=== PATIENT | male | born 1945 | race Caucasian/White ===

== ENCOUNTER 2020-01-12 10:24 | Inpatient (IN) | payer BC, MEDICARE, SELFPAY ==
[2020-01-12] VITALS (24 sets, daily range): BP systolic 83–121; BP diastolic 53–89; PULSE 74–133; RESP 12–24; TEMP 36.3–37.1; O2SAT 92–99; BMI 22.2; BMI 22.1
--- NOTE | 2020-01-12 10:42 | EKG12_ITS ---
Test Reason : CP Blood Pressure : / mmHG Vent. Rate : 126 BPM Atrial Rate : 119 BPM P-R Int : 000 ms QRS Dur : 156 ms QT Int : 316 ms P-R-T Axes : 000 -52 155 degrees QTc Int : 457 ms Atrial fibrillation with rapid ventricular response Left axis deviation Non-specific intra-ventricular conduction block Abnormal ECG Confirmed by SVETLANA IRIZARRY, KENNETH ([id number]), film editor DELONTE LEON ([id number]) on 01/13/2020 1:47:51 PM Referred By: RADHIKA Confirmed By:KENNETH MOTA MD
--- NOTE | 2020-01-12 10:43 | ED.DCSUM_ITS ---
History of Present Illness Chief Complaint: Palpitations Informant: Patient Narrative: 74-year-old male presents to the emergency department with heart palpitations. He has a history of mitral and aortic valve replacement. He is maintained on Coumadin. He states that he has had this sensation in the past but it was very short-lived. This is been constant since yesterday. He feels fatigue and loss of Pap. No chest pain but states he feels his heart racing. He states he sees a icing coater in [place] but would like to switch to [facility]. He takes Coumadin. Past Medical History - Allergies and Home Meds Allergies/Adverse Reactions: Allergies No Known Allergies Allergy (Verified 01/12/20 10:41) Primary Care Physician: Nathaniel Joseph MD [NON-STAFF] - Past Medical History: - - Hypertension hypercholesterolemia Surgical History: - - Aortic and mitral valve replacements Lives: With Family Smoking Status: Never smoker Drugs: None Review of Systems General: Reports: Malaise. Denies: Chills, Fever, Sweats Eyes: Denies: Visual changes - bilaterally, Diplopia ENT: Denies: Rhinorrhea, Sore throat Cardiovascular: Reports: Palpitations, Heart racing. Denies: Chest pain Respiratory: Denies: Dyspnea, Cough, Dyspnea on exertion Gastrointestinal: Denies: Abdominal pain, Nausea, Vomiting, Diarrhea, Melena, Hematochezia Genitourinary: Denies: Dysuria, Hematuria, Frequency Musculoskeletal: Denies: Back pain, Extremity Pain Skin: Denies: Rash, Wounds Neurological: Denies: Headache, Weakness, Numbness Physical Exam Vital Signs/Narrative: Vital Signs Temp Pulse Resp BP Pulse Ox 01/12/20 10:30 129 H 01/12/20 10:25 97.3 F L 133 H 13 106/85 H 98 Inital Vital Signs reviewed: Yes General: Well nourished, Well developed, No Acute Distress Head: Normocephalic, Atraumatic Eyes: Perrl, EOMI ENT: Moist mucous membranes, No rhinorrhea Neck: Supple, Nontender Cardiovascular: No murmurs, Irregular, Tachycardia Respiratory: No distress, CTA bilaterally, Chest nontender Abdomen: Soft, Nontender, Nondistended, Normal bowel sounds Back: Nontender, Normal Inspection Extremities: Nontender, No edema Skin: Normal color, No rash Neurological: Alert, Oriented x3, Cranial nerves II-XII grossly intact, Normal Strength, Normal Sensation Psychological: Normal affect, Normal Mood Diagnostic/Tx/Re-eval Clinical Impression(s) from Imaging Studies Chest X-Ray 01/12/20 11:00 IMPRESSION: Elevation of the right hemidiaphragm with increased markings at the right lung base as well as in the right upper lobe. Follow-up is recommended. Electronically Signed: Jayesh Gross, at 11:24 EST , Service support , Laboratory Last Values WBC 8.1 K/mm3 (4.4-11.0) 01/12/20 10:40 RBC 4.06 M/mm3 (4.6-6.2) L 01/12/20 10:40 Hgb 11.8 g/dL (13.0-16.5) L 01/12/20 10:40 Hct 38.1 % (40-54) L 01/12/20 10:40 MCV 93.8 fL (80-94) 01/12/20 10:40 MCH 29.1 pg (27.0-32.0) 01/12/20 10:40 MCHC 31.0 g/dL (32-36) L 01/12/20 10:40 RDW Std Deviation 46.0 fl (35.1-43.9) H 01/12/20 10:40 RDW Coeff of Patricia 13.5 % (11.6-14.6) 01/12/20 10:40 Plt Count 247 K/mm3 (150-450) 01/12/20 10:40 MPV 10.8 fl (6.2-12.0) 01/12/20 10:40 Immature Gran % (Auto) 0.200 % (0.0-0.9) 01/12/20 10:40 Neut % (Auto) 79.9 % (47-70) H 01/12/20 10:40 Lymph % (Auto) 8.5 % (19-41) L 01/12/20 10:40 [facility] % (Auto) 9.8 % (0-10) 01/12/20 10:40 Eos % (Auto) 1.0 % (0-5) 01/12/20 10:40 Baso % (Auto) 0.6 % (0-1) 01/12/20 10:40 Absolute Neuts (auto) 6.5 X10^3/uL (2.0-7.7) 01/12/20 10:40 Absolute Lymphs (auto) 0.69 X10^3/uL (0.83-4.51) L 01/12/20 10:40 Nucleated RBC % 0 % (0-5) 01/12/20 10:40 PT 32.4 SECONDS (11.7-14.9) H 01/12/20 10:40 INR 3.2 01/12/20 10:40 APTT 34.7 Seconds (24.1-36.2) 01/12/20 10:40 Sodium 137 mmol/L (136-145) 01/12/20 10:40 Potassium 4.9 mmol/L (3.5-5.1) 01/12/20 10:40 Chloride 101 mmol/L (98-107) 01/12/20 10:40 Carbon Dioxide 30.0 mmol/L (21.0-32.0) 01/12/20 10:40 Anion Gap 6 (5-15) 01/12/20 10:40 BUN 33 mg/dL (7-18) H 01/12/20 10:40 Creatinine 1.58 mg/dL (0.70-1.30) H 01/12/20 10:40 Estim Creat Clear Calc 31.68 ml/min 01/12/20 10:40 Est GFR (MDRD) Af Amer 55 mL/min (>60) L 01/12/20 10:40 Est GFR (MDRD) Non-Af 46 mL/min (>60) L 01/12/20 10:40 BUN/Creatinine Ratio 20.9 RATIO (10-20) H 01/12/20 10:40 Glucose 140 mg/dL (74-106) H 01/12/20 10:40 Calcium 9.0 mg/dL (8.5-10.1) 01/12/20 10:40 Magnesium 2.4 mg/dL (1.6-2.6) 01/12/20 10:40 Troponin I 0.351 ng/mL (<0.045) H 01/12/20 10:40 TSH 1.10 uIU/mL (0.358-3.74) 01/12/20 10:40 - EKG Initial EKG Interpretation: Atrial Fibrillation - EKG demonstrates atrial fibrillation with RVR at a rate of 126. Nonspecific intraventricular block noted. - Medical Decision Making IV established patient received a dose of Cardizem which slowed him down to the 80s and 90s. He is therapeutic on his Coumadin. His troponin is slightly elevated in the indeterminate range. It could be type II. He has no known history of coronary artery disease per him. He slowly increased his rate again to the 120s to 140s. He was placed on a drip. We have attempted to obtain old records from his icing coater in [place] have been unsuccessful at this point. I am hesitant to offer cardioversion without documentation that he does not have coronary artery disease and that he has been therapeutic on his Coumadin. Patient is comfortable with this plan. ED Disposition - Plan for ED Patient: Disposition: Acute Care Hospital [facility] Diagnosis: Atrial fibrillation with RVR, Anticoagulated on Coumadin Referrals: Nathaniel Joseph MD [NON-STAFF] -
[2020-01-12] MEDS: dilTIAZem 25 MG/5 ML Vial 10 MG IV BOLUS ×2 (10:52→13:41)
--- NOTE | 2020-01-12 11:00 | RAD_ITS ---
STUDY: X-RAY CHEST REASON FOR EXAM: Male, 74 years old. Chest pain, A-fib TECHNIQUE: Single AP portable view of the chest. COMPARISON: Comparison is made with prior study dated 07/06/2013. FINDINGS: EKG electrodes are seen. Stable elevation of the right hemidiaphragm. Mild increased markings at the right lung base as well as in the right upper lobe. This may represent early infiltrate. Radiographic follow-up is recommended. Blunting of the right costophrenic angle. Sternal cerclage wires are present from a prior sternotomy. Prior mitral valve replacement. A left-sided ICD is seen. Normal mediastinum and parth. Normal visualized pulmonary arteries. There is atherosclerotic calcification of the aortic arch with tortuosity. There are diffuse degenerative changes of the visualized thoracic spine. Normal visualized ribs, clavicles, and shoulders. There is no demonstrated abnormality of the visualized soft tissue structures of the upper abdomen. RAD/Chest 1 View (Portable) IMPRESSION: Elevation of the right hemidiaphragm with increased markings at the right lung base as well as in the right upper lobe. Follow-up is recommended. Electronically Signed: Jayesh Gross, at 11:24 EST , Service support ,
[2020-01-12 11:06] LABS: International Normalized Ratio 3.2; Prothrombin Time (Protime)PT. 32.4 SECONDS (11.7-14.9)
[2020-01-12 11:07] LABS: Partial Thromboplast Time 34.7 Seconds (24.1-36.2)
[2020-01-12 11:22] LABS: Anion Gap 6 (5-15); BUN 33 mg/dL (7-18); BUN/Creat Ratio 20.9 RATIO (10-20); Chloride 101 mmol/L (98-107); Creatinine, Serum 1.58 mg/dL (0.70-1.30); EST Glomerular Filtration Rate 46 mL/min (>60); Est Glom Filt Rate - Afr Amer 55 mL/min (>60); Estimated Creatinine Clearance 31.68 ml/min; Glucose 140 mg/dL (74-106); Magnesium 2.4 mg/dL (1.6-2.6); Potassium 4.9 mmol/L (3.5-5.1); Sodium Level 137 mmol/L (136-145)
[2020-01-12 11:39] LABS: Absolute Lymphocyte Count 0.69 X10^3/uL (0.83-4.51); Absolute Neutrophil Count 6.5 X10^3/uL (2.0-7.7); Basophil# 0.05 X10^3/uL; Basophil% 0.6 % (0-1); Eosinophil# 0.08 X10^3/uL; Hematocrit 38.1 % (40-54); Hemoglobin 11.8 g/dL (13.0-16.5); Lymphocyte # 0.69 X10^3/ul (4.0); Lymphocyte % 8.5 % (19-41); Mean Corpuscular Hgb 29.1 pg (27.0-32.0); Mean Corpuscular Volume 93.8 fL (80-94); Mean Platelet Vol. 10.8 fl (6.2-12.0); Monocyte# 0.79 X10^3/uL; Monocyte% 9.8 % (0-10); NRBC Flagged by Analyzer 0 % (0-5); Neutrophil # 6.45 X10^3/uL (2.7-7.7); Neutrophil % 79.9 % (47-70); Platelet Count 247 K/mm3 (150-450); RBC Distribution Width CV 13.5 % (11.6-14.6); Red Blood Count 4.06 M/mm3 (4.6-6.2); White Blood Count 8.1 K/mm3 (4.4-11.0)
--- NOTE | 2020-01-12 12:15 | NURSING ---
DR CARUSO PAGED
--- NOTE | 2020-01-12 13:21 | HP.PCM_ITS ---
History of Present Illness Date of Admission: 01/12/20 Chief Complaint: palpitations The patient is a 74 year old M with a PMH of mitral and aortic valve replacement. He was admitted via the ED on 01/12/2020 with a complaint of heart palpitations. He does admit to having a remote history of Afib, and says he t sarbjitnks he was told circa 2003 that he had afib, but it is episodic, and he hasnt had any problems with it. he does follow up with a security software engineer in [place] o/a of valvular replacement. He has been having these palpitations since 1 day prior to admission with associated fatigue. He denied any chest pain, dizziness or lightheadedness. Review of systems otherwise negative. ED, vitals showed temperature of 91.3 with blood pressure of 109/74, pulse rate of 94 and respiratory rate of 20. He was saturating at 96% on room air. Chemistry showed creatinine of 1.58 with potassium of 4.9 and initial troponin of 0.351. TSH was 1.1. CBC showed hemoglobin of 11.8 and WBC of 8.1 with platelets of 47. Initial troponin was 0.351. Chest x-ray showed no acute cardiopulmonary process. EKG showed A. fib with RVR. He has been admitted to manage for new onset A. fib with RVR. Patient also wants to switch care to a security software engineer in [place]. [] Past Medical History Allergies No Known Allergies Allergy (Verified 01/12/20 10:41) Home Medications: Ambulatory Orders Medication Instructions Recorded Aspirin [Aspirin, Baby] 81 mg PO DAILY@0800 01/12/20 Carvedilol 25 mg PO BID 01/12/20 Lisinopril 5 mg PO BID 01/12/20 Pravastatin [Pravachol] 40 mg PO DAILY 01/12/20 Warfarin [Coumadin ([facility])] 2 mg PO DAILY 01/12/20 Warfarin [Coumadin ([facility])] 4 mg PO DAILY 01/12/20 Surgical History: - - Aortic and mitral valve replacements, pacemaker insertion Psychiatric History: No pertinent psych hx Lives: With Family Smoking Status: Never smoker Alcohol: None Drugs: None - *Family History Maternal History Items: No pertinent history Paternal History Items: No pertinent history Sibling History Items: Heart Disease Review of Systems Constitutional: Denies: Chills, Fever, Malaise, Weakness, Weight Change Eyes: Denies: Blurred vision HEENT: Denies: Head Aches, Sinus Congestion, Sinus Drainage Cardiovascular: Reports: Palpitations. Denies: Chest Pain, Chest Pressure, Chest Tightness, Edema, Heaviness, Light Headedness, Orthopnea Respiratory: Denies: Cough, Shortness of Breath, Shortness of breath at rest, Shortness of breath upon exertion, Sputum production Gastrointestinal: Denies: Abdominal Pain, Nausea, Vomiting Genitourinary: Denies: Dysuria Musculoskeletal: Denies: Joint Pain, Joint Tenderness Skin: Denies: Rash, Wounds Neurological: Denies: Numbness, Tingling, Focal weakness Psychiatric: Denies: Anxiety, Depression, Homicidal Ideations, Suicidal Ideations Hematologic/ Lymphatic: Denies: Easy Bruising, Easy Bleeding VTE Information - Inpt Only VTE Present on Admission: No VTE Pharm Prophylaxis ordered?: Yes - Physical Exam Vitals/I&O's: Vital Signs Temp Pulse Resp BP Pulse Ox 97.3 F L 94 20 H 109/74 96 01/12/20 10:25 01/12/20 12:06 01/12/20 12:06 01/12/20 12:06 01/12/20 12:06 Oxygen Delivery Method Room Air Weight: 121 lb 11.123 oz Body Mass Index (BMI) 22.2 General: Alert, Oriented x3, Cooperative, No apparent distress HEENT: Atraumatic, PERRLA, EOMI, Normocephalic Oral: Dry Mucosa Neck: Supple, No JVD, Negative Carotid Bruits Lungs: Clear to auscultation, Normal air movement, No rhonchi, No wheeze, No rales Cardiovascular: Irregular Rate, Tachycardic, - - afib Abdomen: Bowel Sounds Present, Soft, Non Tender Extremities: No clubbing, No cyanosis, No edema, Capillary Refill Less than 3 Seconds Skin: No rashes, No breakdown Musculoskeletal: No Tenderness to Palpation of Joints or Extremities Lymphatic: No Cervical, Supraclavicular, or Inguinal Adenopathy Neurological: Cranial nerves II-XII grossly intact, Neuro grossly intact, Motor Exam 5/5 strength throughout Psych/Mental Status: Normal Affect, Appropriate, Alert and oriented to time, place, person, mood and affect Laboratory Results 01/12/20 10:40: WBC 8.1, RBC 4.06 L, Hgb 11.8 L, Hct 38.1 L, MCV 93.8, MCH 29.1, MCHC 31.0 L, RDW Std Deviation 46.0 H, RDW Coeff of Patricia 13.5, Plt Count 247, MPV 10.8, Immature Gran % (Auto) 0.200, Neut % (Auto) 79.9 H, Lymph % (Auto) 8.5 L, [place] % (Auto) 9.8, Eos % (Auto) 1.0, Baso % (Auto) 0.6, Absolute Neuts (auto) 6.5, Absolute Lymphs (auto) 0.69 L, Nucleated RBC % 0 01/12/20 10:40: PT 32.4 H, INR 3.2, APTT 34.7 01/12/20 10:40: Sodium 137, Potassium 4.9, Chloride 101, Carbon Dioxide 30.0, Anion Gap 6, BUN 33 H, Creatinine 1.58 H, Estim Creat Clear Calc 31.68, Est GFR (MDRD) Af Amer 55 L, Est GFR (MDRD) Non-Af 46 L, BUN/Creatinine Ratio 20.9 H, Glucose 140 H, Calcium 9.0, Magnesium 2.4, Troponin I 0.351 H, TSH 1.10 Diagnostic Data Chest X-Ray 01/12/20 11:00 IMPRESSION: Elevation of the right hemidiaphragm with increased markings at the right lung base as well as in the right upper lobe. Follow-up is recommended. Electronically Signed: Jayesh Renato, at 11:24 EST , Service support , Current Medications Diltiazem HCl 125 mg/ Dextrose 125 mls @ 5 mls/hr IV .Q25H [facility]; Protocol Assessment/Plan All Active Problems Atrial fibrillation with RVR (Acute) Anticoagulated on Coumadin (Acute) 74-year-old male admitted with a complaint of palpitations and found to have A. fib with RVR. #Afib with RVR * Admit to PCU with telemetry * Heart rate had come down to the 100 at time of review. * On aspirin and carvedilol. Also on Coumadin. INR today is 3.2. * started on cardizem drip in ED: will continue * TSH WNL * Consult cardiology. * 2D echo. * #Non-STEMI * Initial troponin 0 0.351. He has no chest pain and EKG showed no acute ST changes. This may be due to demand ischemia from A. fib with RVR. * Will cycle troponins. Cardiology consulted. Await recs. Continue aspirin and carvedilol. * Check lipid panel. Continue pravastatin. * #History of mitral and aortic valve replacement: Stable. INR is 2.2. #CKD stage III: Creatinine is 1.58 with EGFR 46. Baseline creatinine is unknown. Will monitor. Prophylaxis: Already on Coumadin. CODE STATUS: Full code * Patient counseled extensively about different types of CODE STATUS including full code, DNR CCA and DNR CCA. Patient elects to be full code. * Total [id number] time 16 minutes. Inpatient E&M: 18627 Init Hosp L3 Procedures: 43741 Advncd Care Plan 30 Min
--- NOTE | 2020-01-12 13:50 | ED.RN ---
called Maribel to inform of pt's admission, who will update pt's . business instructor Brent also talked to son.
--- NOTE | 2020-01-12 14:20 | NURSING ---
127 kor new onset afib rvr, indeterminate trop
--- NOTE | 2020-01-12 14:33 | ECHOD_ITS ---
Reason For Study: Afib/Flutter Procedure This was a 2D Doppler, Color Flow transthoracic echocardiogram. The exam was of adequate technical quality. Exam performed portable in patient room. Left Ventricle Normal LV size. Moderate concentric left ventricular hypertrophy. Severe global left ventricular systolic dysfunction. The estimated ejection fraction is 20 %. Post operative septal motion. Unable to assess diastolic dysfunction. Right Ventricle Normal RV size. ICD or pacer leads identified within the right ventricle. Normal systolic function. Atria The left atrium is moderately enlarged. Normal right atrium. ICD or pacer leads identified within the right atrium. No doppler evidence for ASD. Mitral Valve Small mobile echodensity in the submitral valvular apparatus compatible with redundant / flail chordae tendonae. Stable appearing mechanical mitral valve apparatus. Tricuspid Valve Normal tricuspid valve. Moderate (2+) tricuspid valve insufficiency. Right ventricular systolic pressure estimated to be 50 mmHg. Aortic Valve Stable appearing mechanical aortic valve apparatus. Pulmonic Valve The pulmonic valve is not well visualized. Great Vessels Normal sized aortic root. Pericardium/Pleural Trivial pericardial effusion. There are no echocardiographic indications of cardiac tamponade. MMode/2D Measurements & Calculations LVIDd: 4.4 cm IVSd: 1.3 cm LVOT diam: 2.0 cm LVIDs: 3.8 cm LVPWd: 1.7 cm LVOT area: 3.0 cm2 FS: 13.5 % Ao root diam: 3.0 cm LAV(MOD-sp2): 91.1 ml RA A4 area: 17.2 cm2 Time Measurements MV dec time: 0.13 sec Doppler Measurements & Calculations MV E max peña: 175.2 cm/sec Ao V2 max: 136.3 cm/sec LV V1 max: 129.3 cm/sec MV A max peña: 31.0 cm/sec Ao max P.5 mmHg LV V1 max P.7 mmHg MV E/A: 5.6 Ao V2 mean: 87.2 cm/sec LV V1 mean P.0 mmHg Ao mean P.5 mmHg LV V1 mean: 78.9 cm/sec Ao V2 VTI: 16.2 cm LV V1 VTI: 18.6 cm GRAYSON(I,D): 3.5 cm2 GRAYSON(V,D): 2.9 cm2 SV(LVOT): 56.4 ml PA V2 max: 82.3 cm/sec TR max peña: 325.4 cm/sec TR max P.4 mmHg Interpretation Summary Severe global left ventricular systolic dysfunction. The estimated ejection fraction is 20 %. Post operative septal motion. Moderate concentric left ventricular hypertrophy. The left atrium is moderately enlarged. Stable appearing mechanical mitral valve apparatus. Small mobile echodensity in the submitral valvular apparatus compatible with redundant / flail chordae tendonae. Moderate (2+) tricuspid valve insufficiency. Stable appearing mechanical aortic valve apparatus. Trivial pericardial effusion. There are no echocardiographic indications of cardiac tamponade. Right ventricular systolic pressure estimated to be 50 mmHg c/w pulmonary hypertension. Unable to assess diastolic dysfunction. Ordering Physician: Jessica Jean Referring Physician: MD Tay Lawrence Performed By: Troy Sams RCS
[2020-01-12] MEDS: 0.9% Saline Lock 10 ML Syringe IV ×2 (15:09→18:24)
[2020-01-12 15:31] LABS: BNP,B-Type NATRIURETIC PEPTIDE 1305.1 pg/mL (0-100)
[2020-01-12] MEDS: Jantoven 2 MG Tablet PO (17:52)
--- NOTE | 2020-01-12 18:03 | CON.PCM_ITS ---
Problem List (1) Atrial fibrillation with RVR Status: Acute (2) S/P MVR (mitral valve replacement) Status: Chronic (3) S/P AVR (aortic valve replacement) Status: Chronic (4) Cardiomyopathy Status: Chronic Qualifiers: Cardiomyopathy type: unspecified Qualified Code(s): I42.9 - Cardiomyopathy, unspecified (5) ICD (implantable cardioverter-defibrillator) in place Status: Chronic (6) Abnormal cardiac enzyme level Status: Acute (7) Renal insufficiency Status: Chronic Reason for Consult Date of Consultation: 01/12/20 History of Present Illness: The patient is a 74 year [id number] white male who is referred for evaluation of atrial fibrillation superimposed upon a history of mechanical mitral valve replacement, mechanical aortic valve replacement, cardiomyopathy, ICD, and chronic renal insufficiency. He has been following with [facility] cardiovascular services. He states his surgical procedures were performed at the end of 2003/beginning at 2005 to the best of his recollection. At that time he does not recall requiring coronary revascularization therapy. He states his last outpatient cardiovascular visit may have been in the fall 2018. Since that time he has been followed remotely. He is unsure whether his INR levels are maintained by his corrections officer or his primary care physician at the local [facility] office. He states he does have a history of paroxysmal atrial fibrillation. He had a recurrent event. He felt his heart going faster. He states it appeared to last longer than usual. Thus he presented to [facility] [place] for further evaluation and care. He did not complain of separate chest discomfort or acute respiratory related issues. There was no issues with near syncope or syncope. He has denied ongoing orthopnea or PND or peripheral pitting edema. At same time he has denied any fever, chills, or night sweats. He states his INR level is checked at home with results called to his physician's office and then results from his physician's office called back to him regarding medication adjustment. Today he was found to have indeterminate troponin I levels. His rhythm was atrial fibrillation. His ECG demonstrated atrial fibrillation with a left axis deviation and a left bundle branch block pattern. His chest x-ray suggested post open heart surgery changes, a dual-chamber ICD, the appearance of a mechanical prosthetic valve, and per the radiologist a early right-sided infiltrate cannot be excluded. The patient also underwent further evaluation with a transthoracic echocardio gram. The results are as noted below. [] Past Medical History Allergies/Adverse Reactions: Allergies No Known Allergies Allergy (Verified 01/12/20 10:41) Home Medications: Ambulatory Orders Medication Instructions Recorded Aspirin [Aspirin, Baby] 81 mg PO DAILY@0800 01/12/20 Carvedilol 25 mg PO BID 01/12/20 Lisinopril 5 mg PO BID 01/12/20 Pravastatin [Pravachol] 40 mg PO DAILY 01/12/20 Warfarin [Coumadin (PBKC)] 2 mg PO SUTUWETHSA 01/12/20 Warfarin [Coumadin ([facility]KC)] 4 mg PO MOFR 01/12/20 Past Medical History (Chronic Problems): Chronic Problems S/P MVR (mitral valve replacement) (Chronic) S/P AVR (aortic valve replacement) (Chronic) Cardiomyopathy (Chronic) ICD (implantable cardioverter-defibrillator) in place (Chronic) Renal insufficiency (Chronic) Surgical History: - - Aortic and mitral valve replacements, pacemaker insertion Psychiatric History: No pertinent psych hx - *Family History Maternal History Items: No pertinent history Paternal History Items: No pertinent history Sibling History Items: Heart Disease Lives: With Family Smoking Status: Never smoker Tobacco Use: Chew Alcohol: None Drugs: None Review of Systems - Review of Systems General: Denies: Fever, Night Sweats, Fatigue Cardiovascular: Reports: Palpitations. Denies: Chest Discomfort, Shortness of Breath, Orthopnea, PND, Peripheral Edema, Lightheadedness, Dizziness, Near Syncope, Syncope Respiratory: Denies: Cough, Sputum Production, Hemoptysis Gastrointestinal: Denies: Hematemesis, Hematochezia, Melena Genitourinary: Denies: Dysuria, Hematuria Skin: Denies: Rash Subjectve: This is a 74-year-old white male who appears to be resting comfortably at the moment in no acute distress. Objective: Vital Signs Temp Pulse Resp BP Pulse Ox 97.8 F 89 18 121/87 H 97 01/12/20 14:30 01/12/20 17:00 01/12/20 17:00 01/12/20 17:00 01/12/20 17:00 Oxygen Delivery Method Room Air Weight: 121 lb 3.2 oz Body Mass Index (BMI) 22.1 Intake and Output for Last 24 Hours 01/10/20 01/11/20 01/12/20 23:59 23:59 23:59 Intake Total 256.58 / 256.58 Balance 256.58 / 256.58 General: Awake, Alert, Oriented x 3, Cooperative, No Acute Distress HEENT: Atraumatic, Normocephalic, PERRL, EOMI, Sclera Non Icteric Neck: Supple, Good ROM, No JVD Lungs: Clear to auscultation Cardiovascular: Irregular Rhythm, [place] Prosthetic S1, [place] Prosthetic S2 Vascular: No Carotid Bruits Abdomen: Bowel Sounds Present, Soft Extremities: No edema Neurological: No Focal Motor or Sensory Deficit Psych/Mental Status: Appropriate 01/12/20 10:40: WBC 8.1, RBC 4.06 L, Hgb 11.8 L, Hct 38.1 L, MCV 93.8, MCH 29.1, MCHC 31.0 L, Plt Count 247, MPV 10.8, Immature Gran % (Auto) 0.200, Neut % (Auto) 79.9 H, Lymph % (Auto) 8.5 L, [place] % (Auto) 9.8, Eos % (Auto) 1.0, Baso % (Auto) 0.6, Absolute Neuts (auto) 6.5, Nucleated RBC % 0 01/12/20 10:40: PT 32.4 H, INR 3.2, APTT 34.7 01/12/20 10:40: Sodium 137, Potassium 4.9, Chloride 101, Carbon Dioxide 30.0, Anion Gap 6, BUN 33 H, Creatinine 1.58 H, Est GFR (MDRD) Af Amer 55 L, Est GFR (MDRD) Non-Af 46 L, BUN/Creatinine Ratio 20.9 H, Glucose 140 H, Calcium 9.0, Magnesium 2.4, Troponin I 0.351 H 01/12/20 10:40: B-Natriuretic Peptide 1305.1 H 01/12/20 13:40: Troponin I 0.229 H 01/12/20 16:47: Troponin I 0.322 H Rhythm: Atrial fibrillation EKG: As noted above ECHO: 07-06-2013 Moderately severe global left ventricular systolic dysfunction with a reported LVEF of 30% with a normal prosthetic mitral valve and a report of a bioprosthetic aortic valve with a comment of moderate pulmonary hypertension with an estimated PA systolic pressure of 54 mmHg 01-12-2020 Interpretation Summary Severe global left ventricular systolic dysfunction. The estimated ejection fraction is 20 %. Post operative septal motion. Moderate concentric left ventricular hypertrophy. The left atrium is moderately enlarged. Stable appearing mechanical mitral valve apparatus. Small mobile echodensity in the submitral valvular apparatus compatible with redundant / flail chordae tendonae. Moderate (2+) tricuspid valve insufficiency. Stable appearing mechanical aortic valve apparatus. Trivial pericardial effusion. There are no echocardiographic indications of cardiac tamponade. Right ventricular systolic pressure estimated to be 50 mmHg c/w pulmonary hyp ertension. Unable to assess diastolic dysfunction. Assessment/Plan 1. Atrial fibrillation-paroxysmal The patient apparently has a history of paroxysmal atrial fibrillation. He has been on rate limiting therapy with his beta-feroz secondary to his other cardiovascular condition. He has been on anticoagulant therapy secondary to his mechanical mitral valve/aortic valve condition. At the present time he will continue to be monitored. He will continue rate limiting therapy. He will have an attempt at antiarrhythmic therapy with IV amiodarone. He will continue anticoagulant therapy. Depending upon his clinical course he may need continued medical therapy with future attempts at synchronized biphasic DC cardioversion to regain sinus rhythm. However, this may be somewhat challenging in this patient if his atrial dysrhythmia history is chronic and noting his underlying cardiovascular conditions and his left atrial enlargement. 2. Valvular heart disease: Status post MVR-mechanical and status post AVR- mechanical The patient reports that he has both mechanical mitral and aortic valve prosthesis. At the present time he has been evaluated noninvasively as noted. His prosthetic mitral and aortic valves appear to be stable. He will need to continue AHA antibiotic prophylaxis as deemed appropriate as well as anticoagulant therapy as deemed appropriate. 3. Cardiomyopathy It appears the patient has a history of an underlying cardiomyopathy. Based upon today's echocardiogram his overall LV systolic function appears to have decreased compared to 2014. This history may be part of the etiology for the patient's ICD. At the moment the patient does not appear to have evidence of acute systolic mediated CHF based upon his history or examination. However he needs to be monitored for such. He will need to be treated as deemed appropriate. 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 4. Abnormal cardiac enzymes He does have abnormal cardiac enzymes. They have remained indeterminate without significant fluctuation. This may be secondary to his atrial dysrhythmia superimposed upon his cardiomyopathy as a type II event versus a primary type I event. He will continue his ongoing evaluation and care. It may not be unreasonable to screen him for any development of CAD/significant myocardial ischemia warranting interruption of his anticoagulant therapy to proceed with reevaluation such as cardiac catheterization, etc., with a pharmacologic stress nuclear imaging study. 5. Chronic renal sufficiency The patient appears to have an element of chronic renal insufficiency. This will have to be taken into consideration if he were to proceed with any studies involving IV contrast agents, etc. Comment: The patient's case has been discussed with the patient and previously with the [facility] [place] ED staff and the [facility] [place] hospital staff. This note was generated using a voice recognition system and there may be incorrect words, spelling or punctuation that were not noted when reviewing the office note prior to saving.
[2020-01-12 18:51] LABS: AST(SGOT) 13 U/L (15-37); Alanine Aminotransfer ALT/SGPT 26 U/L (16-61); Albumin, Serum 3.6 g/dL (3.2-5.0); Alkaline Phosphatase 111 U/L (45-117); Globulin 2.7 g/dL (2.2-4.2); Protein, Total 6.3 g/dL (6.4-8.2)
[2020-01-12] MEDS: Amiodarone 360 MG in Dextrose 5% Viaflo Bag 192.8 ML 33.3 MG CONT INF (19:00)
[2020-01-12] MEDS: Pravastatin 40 MG Tablet PO (21:40)
[2020-01-13] VITALS (30 sets, daily range): BP systolic 90–133; BP diastolic 66–89; PULSE 115–124; RESP 8–30; TEMP 36.6–36.8; O2SAT 90–100; BMI 22.1
[2020-01-13] MEDS: Amiodarone 360 MG in Dextrose 5% Viaflo Bag 192.8 ML 16.7 MG CONT INF ×2 (01:02→15:28)
[2020-01-13] MEDS: Aspirin 81 MG TAB.CHEW PO (05:50)
--- NOTE | 2020-01-13 05:55 | EKG12_ITS ---
Test Reason : A-FLUTTER Blood Pressure : / mmHG Vent. Rate : 121 BPM Atrial Rate : 242 BPM P-R Int : 000 ms QRS Dur : 176 ms QT Int : 332 ms P-R-T Axes : -67 -59 156 degrees QTc Int : 471 ms Atrial flutter Left axis deviation Left bundle branch block Abnormal ECG When compared with ECG of 13-JAN-2020 05:08, MANUAL COMPARISON REQUIRED, DATA IS UNCONFIRMED Confirmed by SVETLANA IRIZARRY, KENNETH ([id number]), film editor supervisor ARY COLE ([id number]) on 01/15/2020 10:58:41 AM Referred By: DR PHILLIPS Confirmed By:KENNETH MOTA MD
[2020-01-13 07:20] LABS: Absolute Lymphocyte Count 0.53 X10^3/uL (0.83-4.51); Absolute Neutrophil Count 7.7 X10^3/uL (2.0-7.7); Basophil# 0.04 X10^3/uL; Basophil% 0.4 % (0-1); Eosinophil# 0.19 X10^3/uL; Hematocrit 35.6 % (40-54); Hemoglobin 11.5 g/dL (13.0-16.5); Lymphocyte # 0.53 X10^3/ul (4.0); Lymphocyte % 5.6 % (19-41); Mean Corp Hgb Conc 32.3 g/dL (32-36); Mean Platelet Vol. 10.4 fl (6.2-12.0); Monocyte# 0.92 X10^3/uL; Monocyte% 9.8 % (0-10); NRBC Flagged by Analyzer 0 % (0-5); Neutrophil # 7.68 X10^3/uL (2.7-7.7); Neutrophil % 81.6 % (47-70); POSITIVE DIFFERENTIAL YES; Platelet Count 228 K/mm3 (150-450); RBC Distribution Width CV 13.7 % (11.6-14.6); RBC Distribution Width SD 46.1 fl (35.1-43.9); Red Blood Count 3.83 M/mm3 (4.6-6.2); White Blood Count 9.4 K/mm3 (4.4-11.0)
--- NOTE | 2020-01-13 07:23 | EKG12_ITS ---
Test Reason : Blood Pressure : / mmHG Vent. Rate : 118 BPM Atrial Rate : 118 BPM P-R Int : 120 ms QRS Dur : 154 ms QT Int : 368 ms P-R-T Axes : 000 -68 167 degrees QTc Int : 515 ms Aflutter with 2:1 block Left axis deviation Left ventricular hypertrophy with QRS widening and repolarization abnormality Abnormal ECG When compared with ECG of 13-JAN-2020 07:35, MANUAL COMPARISON REQUIRED, DATA IS UNCONFIRMED Confirmed by SVETLANA IRIZARRY, KENNETH ([id number]), editor sound ARY COLE ([id number]) on 01/15/2020 10:59:08 AM Referred By: Confirmed By:KENNETH MOTA MD
[2020-01-13 07:31] LABS: Differential Indicated SCAN CRITERIA MET
[2020-01-13 07:48] LABS: Anion Gap 5 (5-15); BUN 32 mg/dL (7-18); BUN/Creat Ratio 24.1 RATIO (10-20); Calcium,Total 8.5 mg/dL (8.5-10.1); Chloride 104 mmol/L (98-107); Cholesterol 122 mg/dL (200); Creatinine, Serum 1.33 mg/dL (0.70-1.30); EST Glomerular Filtration Rate 56 mL/min (>60); Est Glom Filt Rate - Afr Amer 68 mL/min (>60); Estimated Creatinine Clearance 37.63 ml/min; Glucose 96 mg/dL (74-106); High Density Lipoprotein 44 mg/dL; Potassium 4.4 mmol/L (3.5-5.1); Sodium Level 138 mmol/L (136-145); Triglycerides 94 mg/dL; Very Low Density Lipoprotein 19 mg/dL (5-40)
[2020-01-13 08:00] LABS: Differential Comment SCANNED
--- NOTE | 2020-01-13 09:23 | PCM.PN.CARD ---
Subjectve: The patient states he feels somewhat better compared to admission with respect to his heart rate. He has had no ongoing chest discomfort or difficulty breathing. Objective: Vital Signs Temp Pulse Resp BP Pulse Ox 98.0 F 117 H 20 H 114/84 H 97 01/13/20 04:00 01/13/20 07:19 01/13/20 07:00 01/13/20 07:00 01/13/20 07:54 Oxygen Flow Rate (L/min) 2 Oxygen Delivery Method Nasal Cannula Weight: 121 lb 3.2 oz Body Mass Index (BMI) 22.1 Intake and Output for Last 24 Hours 01/11/20 01/12/20 01/13/20 23:59 23:59 23:59 Intake Total 1097.80 / 1131.10 166.24 / 166.24 Balance 1097.80 / 1131.10 166.24 / 166.24 General: Awake, Alert, Oriented x 3, Cooperative, No Acute Distress HEENT: Atraumatic, Normocephalic, PERRL, EOMI, Sclera Non Icteric Neck: Supple, Good ROM, No JVD Lungs: Clear to auscultation Cardiovascular: Irregular Rhythm, Normal S1, Normal S2 Abdomen: Bowel Sounds Present, Soft Extremities: No edema Neurological: No Focal Motor or Sensory Deficit Psych/Mental Status: Appropriate 01/12/20 10:40: WBC 8.1, RBC 4.06 L, Hgb 11.8 L, Hct 38.1 L, MCV 93.8, MCH 29.1, MCHC 31.0 L, Plt Count 247, MPV 10.8, Immature Gran % (Auto) 0.200, Neut % (Auto) 79.9 H, Lymph % (Auto) 8.5 L, [place] % (Auto) 9.8, Eos % (Auto) 1.0, Baso % (Auto) 0.6, Absolute Neuts (auto) 6.5, Nucleated RBC % 0 01/12/20 10:40: PT 32.4 H, INR 3.2, APTT 34.7 01/12/20 10:40: Sodium 137, Potassium 4.9, Chloride 101, Carbon Dioxide 30.0, Anion Gap 6, BUN 33 H, Creatinine 1.58 H, Est GFR (MDRD) Af Amer 55 L, Est GFR (MDRD) Non-Af 46 L, BUN/Creatinine Ratio 20.9 H, Glucose 140 H, Calcium 9.0, Magnesium 2.4, Troponin I 0.351 H 01/12/20 10:40: B-Natriuretic Peptide 1305.1 H 01/12/20 13:40: Troponin I 0.229 H 01/12/20 16:47: Troponin I 0.322 H 01/12/20 16:47: Total Bilirubin 1.80 H, Direct Bilirubin 0.40 H 01/13/20 07:00: WBC 9.4, RBC 3.83 L, Hgb 11.5 L, Hct 35.6 L, MCV 93.0, MCH 30.0, MCHC 32.3, Plt Count 228, MPV 10.4, Immature Gran % (Auto) 0.600, Neut % (Auto) 81.6 H, Lymph % (Auto) 5.6 L, [place] % (Auto) 9.8, Eos % (Auto) 2.0, Baso % (Auto) 0.4, Absolute Neuts (auto) 7.7, Nucleated RBC % 0 01/13/20 07:00: Sodium 138, Potassium 4.4, Chloride 104, Carbon Dioxide 29.0, Anion Gap 5, BUN 32 H, Creatinine 1.33 H, Est GFR (MDRD) Af Amer 68, Est GFR (MDRD) Non-Af 56 L, BUN/Creatinine Ratio 24.1 H, Glucose 96, Calcium 8.5, Triglycerides 94, Cholesterol 122, LDL Cholesterol 59, VLDL Cholesterol 19, HDL Cholesterol 44 Rhythm: Atrial fibrillation/flutter EKG: Atrial fibrillation/flutter; left axis deviation; left bundle branch block pattern Stress Test: Pending Medical Necessity - Tobacco Use Smoking Status: Never smoker Tobacco Use: Chew Assessment/Plan 1. Atrial fibrillation-paroxysmal The patient apparently has a history of paroxysmal atrial fibrillation/flutter. He has been on rate limiting therapy with his beta-feroz secondary to his other cardiovascular condition. He has been on anticoagulant therapy secondary to his mechanical mitral valve/aortic valve condition. At the present time he will continue to be monitored. He will continue rate limiting therapy. He was placed on IV amiodarone with an attempt at regaining sinus rhythm with his history of paroxysmal atrial fibrillation/flutter. Thus far he is remaining in atrial fibrillation/flutter. He has remained on anticoagulant therapy. Depending upon his clinical course he may need continued medical therapy with future attempts at synchronized biphasic DC cardioversion to regain sinus rhythm. However, this may be somewhat challenging in this patient if his atrial dysrhythmia history is chronic and noting his underlying cardiovascular conditions and his left atrial enlargement. 2. Valvular heart disease: Status post MVR-mechanical and status post AVR-mechanical The patient reports that he has both mechanical mitral and aortic valve prosthesis. At the present time he has been evaluated noninvasively as noted. His prosthetic mitral and aortic valves appear to be stable. He will need to continue AHA antibiotic prophylaxis as deemed appropriate as well as anticoagulant therapy as deemed appropriate. 3. Cardiomyopathy It appears the patient has a history of an underlying cardiomyopathy. Based upon today's echocardiogram his overall LV systolic function appears to have decreased compared to 2014. This history may be part of the etiology for the patient's ICD. At the moment the patient does not appear to have evidence of acute systolic mediated CHF based upon his history or examination. However he needs to be monitored for such. He will need to be treated as deemed appropriate. 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 4. Abnormal cardiac enzymes He does have abnormal cardiac enzymes. They have remained indeterminate without significant fluctuation. This may be secondary to his atrial dysrhythmia superimposed upon his cardiomyopathy as a type II event versus a primary type I event. He will continue his ongoing evaluation and care. He is proceeding with a pharmacologic stress nuclear imaging study to screen for any obvious evidence of coronary/myocardial ischemia that would require further evaluation and care. 5. Chronic renal sufficiency The patient appears to have an element of chronic renal insufficiency. His creatinine level is somewhat improved. This will need to be followed and taken into consideration with respect to his ongoing evaluation and care. This note was generated using a voice recognition system and there may be incorrect words, spelling or punctuation that were not noted when reviewing the office note prior to saving.
[2020-01-13] MEDS: Digoxin 250 MCG/ML Ampul 500 MCG IV ×2 (11:48→23:17)
[2020-01-13] MEDS: Carvedilol 25 MG Tablet PO ×2 (12:06→21:16)
[2020-01-13] MEDS: 0.9% Saline Lock 10 ML Syringe IV ×2 (12:13→23:17)
--- NOTE | 2020-01-13 12:20 | STRESSREP_ITS ---
Stress Test Report Date: 01-13-2020 Procedure: Pharmacologic stress nuclear imaging study Indications: Atrial fibrillation/flutter; status post MVR; status post AVR; cardiomyopathy; ICD Consent: Per the patient Procedure: The patient underwent pharmacologic (Regadenoson) evaluation with a peak heart rate of 120 beats per minute (82%predicted maximal heart rate) and a peak blood pressure of 134/91 mmHg. The baseline ECG demonstrated atrial flutter with left axis deviation with left bundle branch block pattern. The peak pharmacologic ECG demonstrated no obvious ECG changes. There was an occasional PVC during infusion and recovery. There was no complaint of chest discomfort during pharmacologic infusion or recovery. The examination was discontinued secondary to completion of protocol. Impression: 1. Pharmacologic (Regadenoson) evaluation 2. Peak pharmacologic ECG with no obvious ECG changes. 3. There was an occasional PVC during infusion and recovery. 4. Nuclear images pending Myocardial perfusion imaging study: Technique: The patient was injected with 11.8 millicuries of technetium 99m Cardiolite and subsequently rest SPECT Cardiolite nuclear imaging was obtained in the horizontal long, vertical long, and short axis views. The patient underwent pharmacologic (Regadenoson) evaluation with a peak heart rate of 120 beats per minute (82% percent predicted maximal heart rate) and a peak blood pressure of 134/91 mmHg. The patient was injected with 32.7 millicuries of technetium 99m Cardiolite and subsequently stress SPECT Cardiolite nuclear imaging was obtained in the horizontal long, vertical long, and short axis views. A gated Cardiolite study at peak stress was obtained. Interpretation: Rest and stress SPECT Cardiolite nuclear imaging status post realignment, normalization, and attenuation correction demonstrate the appearance of diminished absence of myocardial perfusion/tracer uptake in portions of the bas al to mid anteroseptal segments without significant change between rest and stress. There is diminished end systolic thickening and brightening. The gated Cardiolite study demonstrates diminished myocardial thickening and inward wall motion. The reported LVEF is 20%. Impression: 1. Rest and stress SPECT current nuclear imaging demonstrate myocardial perfusion changes potentially compatible with the patient's underlying left bundle branch block phenomena, however, an area of previous myocardial injury/infarction cannot necessarily be excluded, with no myocardial perfusion changes considered diagnostic for associated stress-induced myocardial ischemia. 2. The gated Cardiolite study reports an LVEF of 20%. This note was generated with Dragon dictation software. It may contain incorrect words, spelling, and punctuation that were not noted in checking the note before signing.
--- NOTE | 2020-01-13 12:52 | EKG12_ITS ---
Test Reason : CONVERSION Blood Pressure : / mmHG Vent. Rate : 116 BPM Atrial Rate : 232 BPM P-R Int : 000 ms QRS Dur : 166 ms QT Int : 398 ms P-R-T Axes : -68 -62 132 degrees QTc Int : 553 ms Atrial flutter Left axis deviation Non-specific intra-ventricular conduction block Abnormal ECG When compared with ECG of 13-JAN-2020 05:08, MANUAL COMPARISON REQUIRED, DATA IS UNCONFIRMED Confirmed by SVETLANA IRIZARRY, KENNETH ([id number]), city editor ARY COLE ([id number]) on 01/15/2020 11:00:29 AM Referred By: MOOD Confirmed By:KENNETH MOTA MD
[2020-01-13 13:20] LABS: Prothrombin Time (Protime)PT. 36.6 SECONDS (11.7-14.9)
[2020-01-13 13:24] LABS: International Normalized Ratio 3.7
--- NOTE | 2020-01-13 14:12 | CASEMGMT ---
Assessment- SW completed assessment with patient at bedside. SW also confirmed address and phone number Living situation- Patient lives with his and youngest daughter in a 2 story home. He is set up on the first floor. There are about 2-3 entry steps PCP: Dr Cross Specialists: None Pharmacy: [place]. Script coverage is through [facility] DME: None ADL's/IADL's: Independent in everything. 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 Past SNF/rehab: None Past HH: None LW: None POA: None Plan: Patient plans on returning home at d/c. He is currently on O2. He has no preference for O2 company should he need O2 at d/c. He does not have electric, but they do have a generator. He said he would have one of his drivers transport him home. Alexandria PUGH MSW
--- NOTE | 2020-01-13 14:14 | PN_ITS ---
<Vinny Paul - Last Filed: 01/13/20 14:14> Patient Problems: Active and Suspected Problems Atrial fibrillation with RVR (Acute) Abnormal cardiac enzyme level (Acute) Reason for Visit: afib rvr Subjective: Today no palpitations, chest pain, pressure, tightness, heaviness. No LH/dizziness. No SOB. No LE edema. Remains on amio drip with some tachycardia. Vitals/I&O's: Vital Signs Temp Pulse Resp BP Pulse Ox 98.3 F 117 H 28 H 127/89 H 90 01/13/20 10:00 01/13/20 12:00 01/13/20 12:00 01/13/20 12:00 01/13/20 12:00 Oxygen Flow Rate (L/min) 2 Oxygen Delivery Method Room Air Weight: 121 lb 3.2 oz Body Mass Index (BMI) 22.1 Intake and Output for Last 24 Hours 01/11/20 01/12/20 01/13/20 23:59 23:59 23:59 Intake Total 1097.80 / 1131.10 489.74 / 489.74 Output Total 250 / 250 Balance 1097.80 / 1131.10 239.74 / 239.74 General: Alert, Oriented x3, Cooperative HEENT: Atraumatic, PERRLA, EOMI, Normocephalic Neck: Supple, No JVD, Negative Carotid Bruits Lungs: Clear to auscultation, Normal air movement Cardiovascular: No murmurs, Irregular Rate, Tachycardic Abdomen: Bowel Sounds Present, Soft, Non Tender Extremities: No edema, Capillary Refill Less than 3 Seconds Skin: No rashes, No breakdown Musculoskeletal: No Tenderness to Palpation of Joints or Extremities Neurological: Cranial nerves II-XII grossly intact Psych/Mental Status: Normal Affect, Appropriate, Alert and oriented to time, place, person, mood and affect Laboratory Results 01/12/20 10:40: B-Natriuretic Peptide 1305.1 H 01/12/20 16:47: Troponin I 0.322 H 01/12/20 16:47: Total Bilirubin 1.80 H, Direct Bilirubin 0.40 H, AST 13 L, ALT 26, Alkaline Phosphatase 111, Total Protein 6.3 L, Albumin 3.6, Globulin 2.7 01/13/20 07:00: WBC 9.4, RBC 3.83 L, Hgb 11.5 L, Hct 35.6 L, MCV 93.0, MCH 30.0, MCHC 32.3, RDW Std Deviation 46.1 H, RDW Coeff of Patricia 13.7, Plt Count 228, MPV 10.4, Immature Gran % (Auto) 0.600, Neut % (Auto) 81.6 H, Lymph % (Auto) 5.6 L, Harney % (Auto) 9.8, Eos % (Auto) 2.0, Baso % (Auto) 0.4, Absolute Neuts (auto) 7.7, Absolute Lymphs (auto) 0.53 L, Nucleated RBC % 0, Differential Comment SCANNED 01/13/20 07:00: Sodium 138, Potassium 4.4, Chloride 104, Carbon Dioxide 29.0, Anion Gap 5, BUN 32 H, Creatinine 1.33 H, Estim Creat Clear Calc 37.63, Est GFR (MDRD) Af Amer 68, Est GFR (MDRD) Non-Af 56 L, BUN/Creatinine Ratio 24.1 H, Glucose 96, Calcium 8.5, Triglycerides 94, Cholesterol 122, LDL Cholesterol 59, VLDL Cholesterol 19, HDL Cholesterol 44 01/13/20 12:45: PT 36.6 H, INR 3.7 H* Current Medications Aspirin (Aspirin 81 Mg Tab.Chew) 81 mg PO DAILY@0800 [facility] Last Admin: 01/13/20 05:50 Dose: 81 mg Documented by: Carvedilol (Carvedilol 25 Mg Tablet) 25 mg PO BID [facility] Last Admin: 01/13/20 12:06 Dose: 25 mg Documented by: Amiodarone HCl 360 mg/ (Dextrose) 200 mls @ 16.667 mls/hr CONT INF .Q12H [facility] Stop: 01/13/20 18:59 Last Infusion: 01/13/20 12:00 Dose: 0.5 mg/min, 16.7 mls/hr Documented by: Sodium Chloride () 1,000 mls @ 0 mls/hr IV .Q0M [facility] Sodium Chloride () 500 mls @ 0 mls/hr IV .Q0M [facility] Nitroglycerin (Nitroglycerin (Inpatient Use) 0.4 Mg Tab.Subl) 0.4 mg SUBLINGUAL Q5M PRN PRN Reason: CARDIAC/CHEST PAIN Ondansetron HCl (Ondansetron 4 Mg/2 Ml Vial) 4 mg IV Q8H PRN PRN PRN Reason: NAUSEA/VOMITING Pravastatin Sodium (Pravastatin 40 Mg Tablet) 40 mg PO QHS [facility] Last Admin: 01/12/20 21:40 Dose: 40 mg Documented by: Sodium Chloride (0.9% Saline Lock 10 Ml Syringe) 10 - 40 ml IV UD PRN PRN Reason: SALINE FLUSH Last Admin: 01/13/20 12:13 Dose: 20 ml Documented by: Warfarin Sodium (Jantoven 2 Mg Tablet) 2 mg PO SuTuWeThSa@1700 [facility] Last Admin: 01/12/20 17:52 Dose: 2 mg Documented by: Warfarin Sodium (Warfarin 4 Mg Tablet) 4 mg PO MoFr@1700 [facility] STROKE Vital Signs/Narrative: Vital Signs Pulse Resp BP Pulse Ox 01/13/20 12:00 117 H 28 H 127/89 H 90 01/13/20 11:48 119 H 122/87 H 01/13/20 11:00 121 H 26 H 100/67 91 Medical Necessity - Tobacco Use Smoking Status: Never smoker Tobacco Use: Chew Assessment/Plan All Active Problems Atrial fibrillation with RVR (Acute) Anticoagulated on Coumadin (Acute) Abnormal cardiac enzyme level (Acute) 1. Afib RVR - cardiology following, amiodarone drip. warfarin - INR 3.7 - hold tonight. Continue coreg. Echo with EF 20%, 2+ TVI, stable mechanical valves, abnormal chordae tendonae, RVSP 50 mmHg. TSH normal. BNP markedly elevated however no acute CHF exacerbation at this time. 2. NSTEMI - stress without inducible myocardial ischemia, EF 20%. Trop max 0.351. 3. Hx mechanical mitral and aortic valve repair - continue warfarin. 4. CKDIII - improved. 5. HLD - continue statin DVT ppx: coumadin This patient was seen by Vinny Paul PA-C under the supervision of Dr. Fernandes. <Yemi Fernandes - Last Filed: 01/13/20 15:35> Vitals/I&O's: Vital Signs Temp Pulse Resp BP Pulse Ox 98.3 F 118 H 24 H 104/66 97 01/13/20 10:00 01/13/20 14:00 01/13/20 14:00 01/13/20 14:00 01/13/20 14:00 Oxygen Flow Rate (L/min) 2 Oxygen Delivery Method Nasal Cannula Weight: 54.975 kg Body Mass Index (BMI) 22.1 Intake and Output for Last 24 Hours 01/11/20 01/12/20 01/13/20 23:59 23:59 23:59 Intake Total 1097.80 / 1131.10 506.60 / 506.60 Output Total 250 / 250 Balance 1097.80 / 1131.10 256.60 / 256.60 Laboratory Results 01/12/20 10:40: B-Natriuretic Peptide 1305.1 H 01/12/20 16:47: Troponin I 0.322 H 01/12/20 16:47: Total Bilirubin 1.80 H, Direct Bilirubin 0.40 H, AST 13 L, ALT 26, Alkaline Phosphatase 111, Total Protein 6.3 L, Albumin 3.6, Globulin 2.7 01/13/20 07:00: WBC 9.4, RBC 3.83 L, Hgb 11.5 L, Hct 35.6 L, MCV 93.0, MCH 30.0, MCHC 32.3, RDW Std Deviation 46.1 H, RDW Coeff of Patricia 13.7, Plt Count 228, MPV 10.4, Immature Gran % (Auto) 0.600, Neut % (Auto) 81.6 H, Lymph % (Auto) 5.6 L, Harney % (Auto) 9.8, Eos % (Auto) 2.0, Baso % (Auto) 0.4, Absolute Neuts (auto) 7.7, Absolute Lymphs (auto) 0.53 L, Nucleated RBC % 0, Differential Comment SCANNED 01/13/20 07:00: Sodium 138, Potassium 4.4, Chloride 104, Carbon Dioxide 29.0, Anion Gap 5, BUN 32 H, Creatinine 1.33 H, Estim Creat Clear Calc 37.63, Est GFR (MDRD) Af Amer 68, Est GFR (MDRD) Non-Af 56 L, BUN/Creatinine Ratio 24.1 H, Glucose 96, Calcium 8.5, Triglycerides 94, Cholesterol 122, LDL Cholesterol 59, VLDL Cholesterol 19, HDL Cholesterol 44 01/13/20 12:45: PT 36.6 H, INR 3.7 H* Current Medications Aspirin (Aspirin 81 Mg Tab.Chew) 81 mg PO DAILY@0800 [facility] Last Admin: 01/13/20 05:50 Dose: 81 mg Documented by: Carvedilol (Carvedilol 25 Mg Tablet) 25 mg PO BID [facility] Last Admin: 01/13/20 12:06 Dose: 25 mg Documented by: Amiodarone HCl 360 mg/ (Dextrose) 200 mls @ 16.667 mls/hr CONT INF .Q12H [facility] Stop: 01/13/20 18:59 Last Infusion: 01/13/20 14:00 Dose: Infused Documented by: Sodium Chloride () 1,000 mls @ 0 mls/hr IV .Q0M [facility] Sodium Chloride () 500 mls @ 0 mls/hr IV .Q0M [facility] Nitroglycerin (Nitroglycerin (Inpatient Use) 0.4 Mg Tab.Subl) 0.4 mg SUBLINGUAL Q5M PRN PRN Reason: CARDIAC/CHEST PAIN Ondansetron HCl (Ondansetron 4 Mg/2 Ml Vial) 4 mg IV Q8H PRN PRN PRN Reason: NAUSEA/VOMITING Pravastatin Sodium (Pravastatin 40 Mg Tablet) 40 mg PO QHS [facility] Last Admin: 01/12/20 21:40 Dose: 40 mg Documented by: Sodium Chloride (0.9% Saline Lock 10 Ml Syringe) 10 - 40 ml IV UD PRN PRN Reason: SALINE FLUSH Last Admin: 01/13/20 12:13 Dose: 20 ml Documented by: STROKE Vital Signs/Narrative: Vital Signs Pulse Resp BP Pulse Ox 01/13/20 14:00 118 H 24 H 104/66 97 01/13/20 13:00 116 H 24 H 111/85 H 92 01/13/20 12:00 117 H 28 H 127/89 H 90 01/13/20 11:48 119 H 122/87 H Assessment/Plan This patient was seen in conjunction with Vinny Paul PA-C . I have independently interviewed and examined the patient and reviewed pertinent historical, laboratory, and other data. Please refer to Vinny Paul PA-C note for details of this patient's presentation, findings, and recommendations. I have reviewed Vinny Paul PA-C note and concur with documented findings. In brief, patient is a 74-year-old gentleman with history of paroxysmal A. fib who presented with palpitations and chest pain with elevated troponin. Started on amiodarone drip admitted to monitored bed with consultation placed to cardiology. Patient underwent a nuclear stress test which was negative for stress-induced ischemia Physical Examination: GENERAL: cooperative HEENT: Atraumatic; EYES; Anicteric, Normal Conjunctiva NECK; supple, normal thyroid, RESPIRATORY: Diminished to auscultation CARDIOVASCULAR: Slightly irregular tachycardic GI: soft, normoactive bowel sounds, : No Renal angle tenderness; EXTREMITIES: No edema, no clubbing, MUSCULOSKELETAL: no muscle waisting NEURO: Awake; no lateralizing signs. SKIN: No Rash PSYCH; Flat affect Assessment: 1. Paroxysmal A. fib with RVR 2. Elevated troponin secondary to demand ischemia/non-STEMI type II from tachycardia 3. Cardiomyopathy with an ejection fraction of 20% 4. History of mechanical mitral valve on systemic anticoagulation 5. History of aortic valve repair 6. Chronic kidney disease stage III 7. Dyslipidemia 8. DVT prophylaxis on Coumadin Recommendations: 1. I have discussed the results of my overview and impressions with the patient 2. Options for management were reviewed Inpatient E&M: [address] [facility] H[facility] L3
--- NOTE | 2020-01-13 16:12 | CASEMGMT ---
Pt does not have card on file so unable to determine what plan pt has at this time. According to the [place] website, the following are in-network tertiary facilities: [facility], [facility], [facility], [facility], [facility], [facility], [facility], and . John SOOD CM
--- NOTE | 2020-01-13 18:17 | EKG12_ITS ---
Test Reason : AM EKG Blood Pressure : / mmHG Vent. Rate : 116 BPM Atrial Rate : 116 BPM P-R Int : 146 ms QRS Dur : 168 ms QT Int : 414 ms P-R-T Axes : 000 -59 184 degrees QTc Int : 575 ms Sinus tachycardia Left axis deviation Left bundle branch block Abnormal ECG When compared with ECG of 12-JAN-2020 10:29, MANUAL COMPARISON REQUIRED, DATA IS UNCONFIRMED Confirmed by SVETLANA IRIZARRY, KENNETH ([id number]), newspaper managing editor ARY COLE ([id number]) on 01/18/2020 10:41:10 AM Referred By: VIDAL Confirmed By:KENNETH MOTA MD
[2020-01-13] MEDS: Pravastatin 40 MG Tablet PO (21:16)
[2020-01-13] MEDS: MELATONIN 3 MG TABLET PO (23:17)
[2020-01-14] VITALS (22 sets, daily range): BP systolic 77–115; BP diastolic 49–84; PULSE 80–121; RESP 12–32; TEMP 36.3–36.8; O2SAT 87–100
[2020-01-14] MEDS: Amiodarone 360 MG in Dextrose 5% Viaflo Bag 192.8 ML 16.7 MG CONT INF (03:25)
[2020-01-14 06:30] LABS: Absolute Lymphocyte Count 0.55 X10^3/uL (0.83-4.51); Absolute Neutrophil Count 7.3 X10^3/uL (2.0-7.7); Basophil# 0.04 X10^3/uL; Basophil% 0.4 % (0-1); Eosinophil# 0.21 X10^3/uL; Eosinophils% 2.3 % (0-5); Lymphocyte # 0.55 X10^3/ul (4.0); Mean Corp Hgb Conc 31.6 g/dL (32-36); Mean Corpuscular Hgb 29.6 pg (27.0-32.0); Mean Corpuscular Volume 93.8 fL (80-94); Mean Platelet Vol. 10.6 fl (6.2-12.0); Monocyte# 1.06 X10^3/uL; Monocyte% 11.6 % (0-10); NRBC Flagged by Analyzer 0 % (0-5); Neutrophil # 7.25 X10^3/uL (2.7-7.7); Neutrophil % 79.4 % (47-70); POSITIVE DIFFERENTIAL YES; Platelet Count 249 K/mm3 (150-450); RBC Distribution Width CV 13.7 % (11.6-14.6); RBC Distribution Width SD 46.2 fl (35.1-43.9); Red Blood Count 4.05 M/mm3 (4.6-6.2); White Blood Count 9.1 K/mm3 (4.4-11.0)
[2020-01-14 06:38] LABS: International Normalized Ratio 3.4; Prothrombin Time (Protime)PT. 34.2 SECONDS (11.7-14.9)
[2020-01-14 06:54] LABS: Differential Indicated SCAN CRITERIA MET
[2020-01-14 06:55] LABS: Acanthocytes RARE; Differential Comment SCANNED; Ovalocyte RARE; Platelet Estimate ADEQUATE (ADEQ)
[2020-01-14 07:07] LABS: ALB/GLOB Ratio 1.1 RATIO (0.9-2.4); AST(SGOT) 20 U/L (15-37); Alanine Aminotransfer ALT/SGPT 21 U/L (16-61); Albumin, Serum 3.3 g/dL (3.2-5.0); Alkaline Phosphatase 105 U/L (45-117); Anion Gap 3 (5-15); BUN 24 mg/dL (7-18); BUN/Creat Ratio 18.6 RATIO (10-20); Calcium,Total 8.7 mg/dL (8.5-10.1); Chloride 105 mmol/L (98-107); Creatinine, Serum 1.29 mg/dL (0.70-1.30); EST Glomerular Filtration Rate 58 mL/min (>60); Est Glom Filt Rate - Afr Amer 70 mL/min (>60); Globulin 2.9 g/dL (2.2-4.2); Glucose 108 mg/dL (74-106); Potassium 4.8 mmol/L (3.5-5.1); Protein, Total 6.2 g/dL (6.4-8.2); Sodium Level 136 mmol/L (136-145)
--- NOTE | 2020-01-14 08:45 | ECHOTEE_ITS ---
Reason For Study: ATRIAL FIB-FLUTTER Medication MYRTLE probe 6VT-D (SN [id number]) passed with minimal difficulty. No complications were noted. Cetacaine Topical [place] given X3 orally. Versed 2 mg given slow IVP. Fentanyl 100 mcg given slow IVP. Performed a rapid injection of agitated mix of 9 cc saline and 1cc air to assess for atrial septal defect. Left Ventricle The entirety of the left ventricle is not well visualized and thus comments regarding the entirety of the left ventricular wall motion cannot be made at this time, however, based upon the images obtained, especially in the transgastric view, there does appear to be evidence of left ventricular regional wall motion abnormalities and paradoxical septal wall motion potentially compatible with an underlying IVCD and/or a post open heart surgery state and overall diminished LV systolic function. Right Ventricle Normal RV size. ICD or pacer leads identified within the right ventricle. The right ventricular wall motion is normal. Atria Abnormal color flow Doppler compatible with a small PFO with left to right interatrial shunt. Abnormal agitated saline contrast study compatible with a small PFO with a right to left interatrial shunt. The left atrium is moderately enlarged. There is mild sponatenous contrast in the left atrium. No thrombus is detected in the left atrial appendage. The right atrium is mildly enlarged. There is no sponatenous contrast in the right atrium. No obvious right atrial/appendage thrombus identified. ICD or pacer leads identified within the right atrium. Mitral Valve Stable appearing mechanical mitral valve apparatus. MIld (1+) transvalvular insufficiency of the mitral valve. Tricuspid Valve Normal tricuspid valve. Moderate (2+) tricuspid valve insufficiency. Right ventricular systolic pressure estimated to be 48 mmHg. Aortic Valve Stable appearing mechanical aortic valve apparatus. Pulmonic Valve The pulmonic valve is not well visualized. Vessels Normal-appearing thoracic aorta. Pericardium No pericardial effusion. Interpretation Summary The entirety of the left ventricle is not well visualized and thus comments regarding the entirety of the left ventricular wall motion cannot be made at this time, however, based upon the images obtained, especially in the transgastric view, there does appear to be evidence of left ventricular regional wall motion abnormalities and paradoxical septal wall motion potentially compatible with an underlying IVCD and/or a post open heart surgery state and overall diminished LV systolic function. The left atrium is moderately enlarged. There is mild sponatenous contrast in the left atrium. No thrombus is detected in the left atrial appendage. The right atrium is mildly enlarged. Stable appearing mechanical mitral valve apparatus. MIld (1+) transvalvular insufficiency of the mitral valve. Moderate (2+) tricuspid valve insufficiency. Stable appearing mechanical aortic valve apparatus. Abnormal color flow Doppler compatible with a small PFO with left to right interatrial shunt. Abnormal agitated saline contrast study compatible with a small PFO with a right to left interatrial shunt. ICD or pacer leads identified within the right atrium ICD or pacer leads identified within the right ventricle. Comment: Small mobile echodensity noted on the ICD lead in the right atrium compatible with a differential diagnosis of fibrinous strands/material, thrombus, or vegetation. Clinical correlation recommended. Ordering Physician: Adelfo Catherine Referring Physician: LEATHA MCGARRY Performed By: Padma Art RDCS
[2020-01-14] MEDS: Aspirin 81 MG TAB.CHEW PO (12:11)
[2020-01-14] MEDS: Amiodarone 200 MG Tablet PO (12:12)
--- NOTE | 2020-01-14 12:26 | PN_ITS ---
Patient Problems: Active and Suspected Problems Atrial fibrillation with RVR (Acute) Abnormal cardiac enzyme level (Acute) Subjective: Patient seen and examined. Denies chest pain, shortness of breath. Underwent MYRTLE this morning which showed fibrinous strands on ICD lead. Cardioversion canceled. Patient asking when he can return home. - Physical Exam Vitals/I&O's: Vital Signs Temp Pulse Resp BP Pulse Ox 97.4 F L 100 15 98/61 93 01/14/20 08:17 01/14/20 12:00 01/14/20 12:00 01/14/20 12:00 01/14/20 12:00 Oxygen Flow Rate (L/min) 2 Oxygen Delivery Method Room Air Weight: 121 lb 3.2 oz Body Mass Index (BMI) 22.1 Intake and Output for Last 24 Hours 01/12/20 01/13/20 01/14/20 23:59 23:59 23:59 Intake Total 1097.80 / 1131.10 1112.41 / 1112.41 697.53 / 697.53 Output Total 650 / 1050 725 / 725 Balance 1097.80 / 1131.10 462.41 / 62.41 -27.47 / -27.47 General: Alert, Oriented x3, Cooperative HEENT: Atraumatic, PERRLA, EOMI, Normocephalic Neck: Supple, No JVD, Negative Carotid Bruits Lungs: Clear to auscultation, Normal air movement Cardiovascular: - - Atrial fibrillation, rate controlled Abdomen: Bowel Sounds Present, Soft, Non Tender, Non-Distended Extremities: No clubbing, No cyanosis, No edema, Capillary Refill Less than 3 Seconds Skin: No rashes, No breakdown Musculoskeletal: No Tenderness to Palpation of Joints or Extremities Neurological: Cranial nerves II-XII grossly intact, Neuro grossly intact Psych/Mental Status: Normal Affect, Appropriate Microbiology Past 72 Hours 01/13/20 18:55 Mucosa - Nose SARS-CoV-2 Antigen (Rapid) - Final Laboratory Results 01/13/20 12:45: PT 36.6 H, INR 3.7 H* 01/14/20 06:10: PT 34.2 H, INR 3.4 01/14/20 06:10: WBC 9.1, RBC 4.05 L, Hgb 12.0 L, Hct 38.0 L, MCV 93.8, MCH 29.6, MCHC 31.6 L, RDW Std Deviation 46.2 H, RDW Coeff of Patricia 13.7, Plt Count 249, MPV 10.6, Immature Gran % (Auto) 0.300, Neut % (Auto) 79.4 H, Lymph % (Auto) 6.0 L, Saunders % (Auto) 11.6 H, Eos % (Auto) 2.3, Baso % (Auto) 0.4, Absolute Neuts (auto) 7.3, Absolute Lymphs (auto) 0.55 L, Nucleated RBC % 0, Differential Comment SCANNED, Platelet Estimate ADEQUATE, Ovalocytes RARE, Acanthocytes (Spur) RARE 01/14/20 06:10: Sodium 136, Potassium 4.8, Chloride 105, Carbon Dioxide 28.0, Anion Gap 3 L, BUN 24 H, Creatinine 1.29, Estim Creat Clear Calc 38.80, Est GFR (MDRD) Af Amer 70, Est GFR (MDRD) Non-Af 58 L, BUN/Creatinine Ratio 18.6, Glucose 108 H, Calcium 8.7, Total Bilirubin 3.00 H, AST 20, ALT 21, Alkaline Phosphatase 105, Total Protein 6.2 L, Albumin 3.3, Globulin 2.9, Albumin/Globulin Ratio 1.1 Current Medications Acetaminophen (Acetaminophen 325 Mg Tablet) 650 mg PO Q6H PRN PRN PRN Reason: Pain Score 1-3 /Temp>100.7 Al Hydroxide/Mg Hydroxide (Mag Hydrox/Al Hydrox/Simeth 30 Ml Udc) 30 ml PO Q6H PRN PRN PRN Reason: Gastric Burning Amiodarone HCl (Amiodarone 200 Mg Tablet) 200 mg PO TID [facility] Stop: 01/21/20 06:01 Last Admin: 01/14/20 12:12 Dose: 200 mg Documented by: [facility]iodarone [facility] ([facility] 200 [facility]: 01/28/20 08:01 Amiodarone HCl ([facility]iodarone 200 Mg Tablet) [facility]: 10/23/22 08:01 Aspirin (Aspirin 81 Mg Tab.Chew) 81 mg PO DAILY@0800 [facility] Last Admin: 01/14/20 12:11 Dose: 81 mg Documented by: Bisacodyl (Bisacodyl 5 Mg Tablet) 10 mg PO DAILY PRN PRN PRN Reason: Constipation Carvedilol (Carvedilol 12.5 Mg Tablet) [facility] Last Admin: 01/14/20 12:09 Dose: Not Given Documented by: Docusate Sodium (Docusate Sodium 100 Mg Capsule) 200 mg PO BID PRN PRN PRN Reason: Constipation Sodium Chloride () 1,000 mls @ 0 mls/hr IV .Q0M [facility] Sodium Chloride () 500 mls @ 0 mls/hr IV .Q0M [facility] Melatonin (Mel[facility] 3 Mg Tablet) [facility] Last Admin: 01/13/20 23:17 Dose: 3 mg Documented by: Morphine Sulfate (Morphine 2 Mg/Ml Syringe) 1 - 2 mg IV Q4H PRN PRN PRN Reason: Pain Score 4-5 Morphine Sulfate (Morphine 2 Mg/Ml Syringe) 2 - 4 mg IV Q3H PRN PRN PRN Reason: Pain Score 6-10 Nitroglycerin (Nitroglycerin (Inpatient Use) 0.4 Mg Tab.Subl) 0.4 mg SUBLINGUAL Q5M PRN PRN Reason: CARDIAC/CHEST PAIN Ondansetron HCl (Ondansetron 4 Mg/2 Ml Vial) 4 mg IV Q8H PRN PRN PRN Reason: NAUSEA/VOMITING Oxycodone HCl (Oxycodone 5 Mg Tablet) 5 mg PO Q4H PRN PRN PRN Reason: Pain Score 4-5 Polyethylene Glycol (Polyethylene Glycol 3350 17 Gm Packet) 17 gm PO DAILY [facility] Last Admin: 01/14/20 11:08 Dose: Not Given Documented by: Pravastatin Sodium (Pravastatin 40 Mg Tablet) [facility] Last Admin: 01/13/20 21:16 Dose: 40 mg Documented by: Prochlorperazine Edisylate (Prochlorperazine 10 Mg/2 Ml Vial) 10 mg IV Q6H PRN PRN PRN Reason: Nausea/Vomiting Sodium Chloride (0.9% Saline Lock 10 Ml Syringe) 10 - 40 ml IV UD PRN PRN Reason: SALINE FLUSH Last Admin: 01/13/20 23:17 Dose: 10 ml Documented by: Medical Necessity - Tobacco Use Smoking Status: Never smoker Tobacco Use: Chew Assessment/Plan All Active Problems Atrial fibrillation with RVR (Acute) Anticoagulated on Coumadin (Acute) Abnormal cardiac enzyme level (Acute) 1. Atrial fibrillation with RVR-patient has history of paroxysmal atrial fibrillation. IV amiodarone with transition to oral amiodarone at discharge. Rate currently controlled. Continue Coumadin with weekly INR. Patient underwent MYRTLE which showed questionable fibrinous strands on ICD lead. Cardioversion on hold at this time. Possible outpatient MYRTLE/cardioversion at a later time. Continue amiodarone, carvedilol, Coumadin. 2. NSTEMI-stress test without ischemia. EF 20%. Continue medical management including aspirin, carvedilol, statin. 3. Cardiomyopathy with reduced EF-echocardiogram demonstrates an EF of 20%. ICD in place. Per [facility] records, prior EF on echo 06/23/2019 30 to 35%. No evidence of acute CHF. Outpatient follow-up with cardiology. 4. Valvular heart disease with history of mitral valve replacement with mechanical valve and aortic valve replacement with mechanical valve 5. Chronic kidney disease stage III-stable. 6. Hyperlipidemia-continue statin. DVT prophylaxis-continue Coumadin. This patient was seen by VINI Meza under the supervision of Dr. Fernandes.
--- NOTE | 2020-01-14 12:42 | DCINST_ITS ---
- Discharge Diagnoses Current Active Problems: Current Active and Chronic Problems Atrial fibrillation with RVR (Acute) S/P MVR (mitral valve replacement) (Chronic) S/P AVR (aortic valve replacement) (Chronic) Cardiomyopathy (Chronic) ICD (implantable cardioverter-defibrillator) in place (Chronic) Abnormal cardiac enzyme level (Acute) Renal insufficiency (Chronic) You will use the following diet at home:: Cardiac Discharge Activity: Return to Normal Activity Call your doctor if you observe: Shortness of breath, Dizziness, Fainting spells, Chest pain Additional Instructions: You will need weekly INR checked which will be followed by cardiology. Allergies/Adverse Reactions: Allergies No Known Allergies Allergy (Verified 01/12/20 10:41) Medications to take at Discharge Aspirin [Aspirin, Baby] 81 mg PO DAILY@0800 01/12/20 Pravastatin [Pravachol] 40 mg PO DAILY 01/12/20 Warfarin [Coumadin] 2 mg PO SUTUWETHSA 01/12/20 Warfarin [Coumadin] 4 mg PO MOFR 01/12/20 Amiodarone HCl [Cordarone] 200 mg PO TID #120 tab 01/14/20 Carvedilol [Coreg (Beta Baylee)] 12.5 mg PO BIDCM #120 tab 01/14/20 The following prescriptions were given: Amiodarone HCl [Cordarone] 200 mg PO TID #120 tab Transmission Status: Pending to [id number] Carvedilol [Coreg (Beta Baylee)] 12.5 mg PO BIDCM #120 tab Transmission Status: Pending to [id number] Orders to be completed after discharge: Prothrombin Time w/INR Time Frame: 1 Week, Facility: [facility], Location: Laboratory Primary Care Physician: Nathaniel Joseph MD [NON-STAFF] - Please follow up with your Primary Care Physician in: 1 Week Test Results: Test results from this visit will be discussed in further detail at your follow- up appointment, if applicable. Please Follow Up With: Adelfo Catherine MD When: 2 Weeks Proposed Discharge Date: 01/14/20
--- NOTE | 2020-01-14 12:50 | DS.PCM_ITS ---
<Desirae Spencer SCRUM PROJECT MANAGER - Last Filed: 01/14/20 12:59> Discharge Date and Diagnosis - Problem List Patient Problems: Active and Suspected Problems Atrial fibrillation with RVR (Acute) Abnormal cardiac enzyme level (Acute) Date of Admission: 01/12/20 Date of Discharge: 01/14/20 - Primary Discharge Diagnosis Acute Problems: Active Problems 1. Atrial fibrillation with RVR 2. NSTEMI 3. Cardiomyopathy with reduced EF 4. Valvular heart disease with history of mitral valve replacement with mechanical valve and aortic valve replacement with mechanical valve 5. Chronic kidney disease stage III 6. Hyperlipidemia - Secondary Discharge Diagnosis Chronic Problems: Chronic Problems S/P MVR (mitral valve replacement) (Chronic) S/P AVR (aortic valve replacement) (Chronic) Cardiomyopathy (Chronic) ICD (implantable cardioverter-defibrillator) in place (Chronic) Renal insufficiency (Chronic) Hospital Course and Treatment Imaging Results: Diagnostic Data Chest X-Ray 01/12/20 11:00 IMPRESSION: Elevation of the right hemidiaphragm with increased markings at the right lung base as well as in the right upper lobe. Follow-up is recommended. Electronically Signed: Jayesh Renato, at 11:24 EST , Service support , Consultations 01/13/20 12:49 MD to MD Notification of Procedure Routine MD Notified:: Adelfo Catherine Dr.- Cardiology Operations: None Procedures: Stress test, Transesophageal Echo Summary of Care Provided: The patient is a 74 year old M admitted 01/12/2020 due to palpitations. 1. Atrial fibrillation with RVR-patient has history of paroxysmal atrial fibrillation. IV amiodarone with transition to oral amiodarone at discharge. Rate currently controlled. Continue Coumadin with weekly INR. Patient underwent MYRTLE which showed questionable fibrinous strands on ICD lead. Cardioversion on hold at this time. Possible outpatient MYRTLE/cardioversion at a later time. Continue amiodarone, carvedilol, Coumadin. Follow-up with cardiology in 2 weeks. Initial INR ordered for 1 week which will be followed by cardiology. 2. NSTEMI-stress test without ischemia. EF 20%. Continue medical management including aspirin, carvedilol, statin. 3. Cardiomyopathy with reduced EF-echocardiogram demonstrates an EF of 20%. ICD in place. Per [facility] records, prior EF on echo 06/23/2019 30 to 35%. No evidence of acute CHF. Outpatient follow-up with cardiology. 4. Valvular heart disease with history of mitral valve replacement with mechanical valve and aortic valve replacement with mechanical valve-on Coumadin as noted above. 5. Chronic kidney disease stage III-stable. 6. Hyperlipidemia-continue statin. General: Alert, Oriented x3, Cooperative HEENT: Atraumatic, PERRLA, EOMI, Normocephalic Neck: Supple, No JVD, Negative Carotid Bruits Lungs: Clear to auscultation, Normal air movement Cardiovascular: - - Atrial fibrillation, rate controlled Abdomen: Bowel Sounds Present, Soft, Non Tender, Non-Distended Extremities: No clubbing, No cyanosis, No edema, Capillary Refill Less than 3 Seconds Skin: No rashes, No breakdown Musculoskeletal: No Tenderness to Palpation of Joints or Extremities Neurological: Cranial nerves II-XII grossly intact, Neuro grossly intact Psych/Mental Status: Normal Affect, Appropriate Patient seen and examined prior to discharge. Physical assessment as noted above. Patient is stable for discharge with follow up recommendations as noted above. This patient was seen by VINI Meza under the supervision of Dr. Fernandes. Patient Problems: Active and Suspected Problems Atrial fibrillation with RVR (Acute) Abnormal cardiac enzyme level (Acute) - Physical Exam Vitals/I&O's: Vital Signs Temp Pulse Resp BP Pulse Ox 97.4 F L 100 15 98/61 93 01/14/20 08:17 01/14/20 12:00 01/14/20 12:00 01/14/20 12:00 01/14/20 12:00 Oxygen Flow Rate (L/min) 2 Oxygen Delivery Method Room Air Weight: 121 lb 3.2 oz Body Mass Index (BMI) 22.1 Intake and Output for Last 24 Hours 01/12/20 01/13/20 01/14/20 23:59 23:59 23:59 Intake Total 1097.80 / 1131.10 1112.41 / 1112.41 697.53 / 697.53 Output Total 650 / 1050 725 / 725 Balance 1097.80 / 1131.10 462.41 / 62.41 -27.47 / -27.47 Microbiology Past 72 Hours 01/13/20 18:55 Mucosa - Nose SARS-CoV-2 Antigen (Rapid) - Final Laboratory Results 01/13/20 12:45: PT 36.6 H, INR 3.7 H* 01/14/20 06:10: PT 34.2 H, INR 3.4 01/14/20 06:10: WBC 9.1, RBC 4.05 L, Hgb 12.0 L, Hct 38.0 L, MCV 93.8, MCH 29.6, MCHC 31.6 L, RDW Std Deviation 46.2 H, RDW Coeff of Patricia 13.7, Plt Count 249, MPV 10.6, Immature Gran % (Auto) 0.300, Neut % (Auto) 79.4 H, Lymph % (Auto) 6.0 L, Wilson % (Auto) 11.6 H, Eos % (Auto) 2.3, Baso % (Auto) 0.4, Absolute Neuts (auto) 7.3, Absolute Lymphs (auto) 0.55 L, Nucleated RBC % 0, Differential Comment SCANNED, Platelet Estimate ADEQUATE, Ovalocytes RARE, Acanthocytes (Spur) RARE 01/14/20 06:10: Sodium 136, Potassium 4.8, Chloride 105, Carbon Dioxide 28.0, Anion Gap 3 L, BUN 24 H, Creatinine 1.29, Estim Creat Clear Calc 38.80, Est GFR (MDRD) Af Amer 70, Est GFR (MDRD) Non-Af 58 L, BUN/Creatinine Ratio 18.6, Glucose 108 H, Calcium 8.7, Total Bilirubin 3.00 H, AST 20, ALT 21, Alkaline Phosphatase 105, Total Protein 6.2 L, Albumin 3.3, Globulin 2.9, Albumin/Globulin Ratio 1.1 Current Medications Acetaminophen (Acetaminophen 325 Mg Tablet) 650 mg PO Q6H PRN PRN PRN Reason: Pain Score 1-3 /Temp>100.7 Al Hydroxide/Mg Hydroxide (Mag Hydrox/Al Hydrox/Simeth 30 Ml Udc) 30 ml PO Q6H PRN PRN PRN Reason: Gastric Burning Amiodarone HCl (Amiodarone 200 Mg Tablet) 200 mg PO TID FRITZ Stop: 01/21/20 06:01 Last Admin: 01/14/20 12:12 Dose: 200 mg Documented by: Amiodarone HCl ([facility] 200 Mg [facility]) [facility]: 01/28/20 08:01 Amiodarone HCl (Amiodarone 200 Mg Tablet) [facility] Stop: 10/23/22 08:01 Aspirin (Aspirin 81 Mg Tab.Chew) 81 mg PO DAILY@0800 [facility] Last Admin: 01/14/20 12:11 Dose: 81 mg Documented by: Bisacodyl (Bisacodyl 5 Mg Tablet) 10 mg PO DAILY PRN PRN PRN Reason: Constipation Carvedilol (Carvedilol 12.5 Mg Tablet) [facility] Last Admin: 01/14/20 12:09 Dose: Not Given Documented by: Docusate Sodium (Docusate Sodium 100 Mg Capsule) 200 mg PO BID PRN PRN PRN Reason: Constipation Sodium Chloride () 1,000 mls @ 0 mls/hr IV .Q0M [facility] Sodium Chloride () 500 mls @ 0 mls/hr IV .Q0M [facility] Melatonin (Melatonin 3 Mg Tablet) [facility] Last Admin: 01/13/20 23:17 Dose: 3 mg Documented by: Morphine Sulfate (Morphine 2 Mg/Ml Syringe) 1 - 2 mg IV Q4H PRN PRN PRN Reason: Pain Score 4-5 Morphine Sulfate (Morphine 2 Mg/Ml Syringe) 2 - 4 mg IV Q3H PRN PRN PRN Reason: Pain Score 6-10 Nitroglycerin (Nitroglycerin (Inpatient Use) 0.4 Mg Tab.Subl) 0.4 mg SUBLINGUAL Q5M PRN PRN Reason: CARDIAC/CHEST PAIN Ondansetron HCl (Ondansetron 4 Mg/2 Ml Vial) 4 mg IV Q8H PRN PRN PRN Reason: NAUSEA/VOMITING Oxycodone HCl (Oxycodone 5 Mg Tablet) 5 mg PO Q4H PRN PRN PRN Reason: Pain Score 4-5 Polyethylene Glycol (Polyethylene Glycol 3350 17 Gm Packet) 17 gm PO DAILY [facility] Last Admin: 01/14/20 11:08 Dose: Not Given Documented by: Pravastatin Sodium (Pravastatin 40 Mg Tablet) [facility] Last Admin: 01/13/20 21:16 Dose: 40 mg Documented by: Prochlorperazine Edisylate (Prochlorperazine 10 Mg/2 Ml Vial) 10 mg IV Q6H PRN PRN PRN Reason: Nausea/Vomiting Sodium Chloride (0.9% Saline Lock 10 Ml Syringe) 10 - 40 ml IV UD PRN PRN Reason: SALINE FLUSH Last Admin: 01/13/20 23:17 Dose: 10 ml Documented by: Discharge Diet: Low fat/ Low Cholesterol Discharge Activity: Return to Normal Activity Call your doctor if you observe: Shortness of breath, Dizziness, Fainting spells, Chest pain Home Medications: Medications to take at Discharge Aspirin [Aspirin, Baby] 81 mg PO DAILY@0800 01/12/20 Pravastatin [Pravachol] 40 mg PO DAILY 01/12/20 Warfarin [Coumadin] 2 mg PO SUTUWETHSA 01/12/20 Warfarin [Coumadin] 4 mg PO MOFR 01/12/20 Amiodarone HCl [Cordarone] 200 mg PO TID #120 tab 01/14/20 Carvedilol [Coreg (Beta Baylee)] 12.5 mg PO BIDCM #120 tab 01/14/20 Following Prescriptions Were Given to Patient: Amiodarone HCl [Cordarone] 200 mg PO TID #120 tab Transmission [id number] Carvedilol [Coreg (Beta Baylee)] 12.5 mg PO BIDCM #120 tab Transmission Status: [id number] Other Amb Orders: Prothrombin Time w/INR Time Frame: 1 Week, Facility: [facility], Location: Laboratory Primary Care Physician: Nathaniel Joseph MD [NON-STAFF] - Please follow up with your Primary Care Physician in: 1 Week Please Follow Up With: Adelfo Catherine MD When: 2 Weeks Disposition: Home Minutes spent on discharge:: 35 Patient Condition:: Stable Medical Necessity - Tobacco Use Smoking Status: Never smoker Tobacco Use: Chew Meaningful Use Info Meaningful Use Diagnoses (Choose all that apply): AMI - AMI/Post PCI/Angioplasty Aspirin given w/in 24hrs of arrival?: Yes ASA at discharge?: Yes Statins at discharge?: Yes Bert/ARB at discharge?: No Reason Bert/ARB not ordered:: Hypotension Beta Baylee at discharge?: Yes Done w/ Acute AR measure.: Yes <Yemi Fernandes - Last Filed: 01/14/20 13:39> Discharge Date and Diagnosis - Primary Discharge Diagnosis Acute Problems: Active Problems Atrial fibrillation with RVR (Acute) Abnormal cardiac enzyme level (Acute) - Secondary Discharge Diagnosis Chronic Problems: Chronic Problems S/P MVR (mitral valve replacement) (Chronic) S/P AVR (aortic valve replacement) (Chronic) Cardiomyopathy (Chronic) ICD (implantable cardioverter-defibrillator) in place (Chronic) Renal insufficiency (Chronic) Hospital Course and Treatment Imaging Results: 01/14/20 08:45 Echo Transesophageal (MYRTLE) [ECHO] Routine Consultations 01/13/20 12:49 MD to MD Notification of Procedure Routine MD Notified:: Adelfo Catherine Summary of Care Provided: This patient was seen in conjunction with VINI Meza . I have independently interviewed and examined the patient and reviewed pertinent historical, laboratory, and other data. Please refer to VINI Meza note for details of this patient's presentation, findings, and r ecommendations. I have reviewed VINI Meza note and concur with documented findings. In brief, patient is a 74-year-old gentleman with history of paroxysmal A. fib who presented with palpitations and chest pain with elevated troponin. Started on amiodarone drip admitted to monitored bed with consultation placed to cardiology. Patient underwent a nuclear stress test which was negative for stress-induced ischemia Assessment: 1. Paroxysmal A. fib with RVR 2. Elevated troponin secondary to demand ischemia/non-STEMI type II from tachycardia 3. Cardiomyopathy with an ejection fraction of 20% 4. History of mechanical mitral valve on systemic anticoagulation 5. History of aortic valve repair 6. Chronic kidney disease stage III 7. Dyslipidemia 8. DVT prophylaxis on Coumadin Hospital course; as documented above - Physical Exam Vitals/I&O's: Vital Signs Temp Pulse Resp BP Pulse Ox 97.4 F L 83 24 H 98/73 94 01/14/20 08:17 01/14/20 13:00 01/14/20 13:00 01/14/20 13:00 01/14/20 13:30 Oxygen Flow Rate (L/min) 2 Oxygen Delivery Method Room Air Weight: 54.975 kg Body Mass Index (BMI) 22.1 Intake and Output for Last 24 Hours 01/12/20 01/13/20 01/14/20 23:59 23:59 23:59 Intake Total 1097.80 / 1131.10 1112.41 / 1112.41 717.01 / 717.01 Output Total 650 / 1050 725 / 725 Balance 1097.80 / 1131.10 462.41 / 62.41 -7.99 / -7.99 Microbiology Past 72 Hours 01/13/20 18:55 Mucosa - Nose SARS-CoV-2 Antigen (Rapid) - Final Laboratory Results 01/14/20 06:10: PT 34.2 H, INR 3.4 01/14/20 06:10: WBC 9.1, RBC 4.05 L, Hgb 12.0 L, Hct 38.0 L, MCV 93.8, MCH 29.6, MCHC 31.6 L, RDW Std Deviation 46.2 H, RDW Coeff of Patricia 13.7, Plt Count 249, MPV 10.6, Immature Gran % (Auto) 0.300, Neut % (Auto) 79.4 H, Lymph % (Auto) 6.0 L, Wilson % (Auto) 11.6 H, Eos % (Auto) 2.3, Baso % (Auto) 0.4, Absolute Neuts (auto) 7.3, Absolute Lymphs (auto) 0.55 L, Nucleated RBC % 0, Differential Comment SCANNED, Platelet Estimate ADEQUATE, Ovalocytes RARE, Acanthocytes (Spur) RARE 01/14/20 06:10: Sodium 136, Potassium 4.8, Chloride 105, Carbon Dioxide 28.0, Anion Gap 3 L, BUN 24 H, Creatinine 1.29, Estim Creat Clear Calc 38.80, Est GFR (MDRD) Af Amer 70, Est GFR (MDRD) Non-Af 58 L, BUN/Creatinine Ratio 18.6, Glucose 108 H, Calcium 8.7, Total Bilirubin 3.00 H, AST 20, ALT 21, Alkaline Phosphatase 105, Total Protein 6.2 L, Albumin 3.3, Globulin 2.9, Albumin/Globulin Ratio 1.1 Current Medications Acetaminophen (Acetaminophen 325 Mg Tablet) 650 mg PO Q6H PRN PRN PRN Reason: Pain Score 1-3 /Temp>100.7 Al Hydroxide/Mg Hydroxide (Mag Hydrox/Al Hydrox/Simeth 30 Ml Udc) 30 ml PO Q6H PRN PRN PRN Reason: Gastric Burning Amiodarone HCl (Amiodarone 200 Mg Tablet) 200 mg PO TID [facility] Stop: 01/21/20 06:01 Last Admin: 01/14/20 12:12 Dose: 200 mg Documented by: Amiodarone HCl (Am[facility]one 200 Mg Tablet) [facility] Stop: 01/28/20 08:01 Amiodarone HCl (Amiodarone 200 Mg Tablet) [facility] Stop: 10/23/22 08:01 Aspirin (Aspirin 81 Mg Tab.Chew) 81 mg PO DAILY@0800 [facility] Last Admin: 01/14/20 12:11 Dose: 81 mg Documented by: Bisacodyl (Bisacodyl 5 Mg Tablet) 10 mg PO DAILY PRN PRN PRN Reason: Constipation Carvedilol (Carvedilol 12.5 Mg Tablet) [facility] Last Admin: 01/14/20 12:09 Dose: Not Given Documented by: Docusate Sodium (Docusate Sodium 100 Mg Capsule) 200 mg PO BID PRN PRN PRN Reason: Constipation Sodium Chloride () 1,000 mls @ 0 mls/hr IV .Q0M [facility] Sodium Chloride () 500 mls @ 0 mls/hr IV .Q0M [facility] Melatonin (Melatonin 3 Mg Tablet) 3 mg PO QHS [facility] Last Admin: 01/13/20 23:17 Dose: 3 mg Documented by: Morphine Sulfate (Morphine 2 Mg/Ml Syringe) 1 - 2 mg IV Q4H PRN PRN PRN Reason: Pain Score 4-5 Morphine Sulfate (Morphine 2 Mg/Ml Syringe) 2 - 4 mg IV Q3H PRN PRN PRN Reason: Pain Score 6-10 Nitroglycerin (Nitroglycerin (Inpatient Use) 0.4 Mg Tab.Subl) 0.4 mg SUBLINGUAL Q5M PRN PRN Reason: CARDIAC/CHEST PAIN Ondansetron HCl (Ondansetron 4 Mg/2 Ml Vial) 4 mg IV Q8H PRN PRN PRN Reason: NAUSEA/VOMITING Oxycodone HCl (Oxycodone 5 Mg Tablet) 5 mg PO Q4H PRN PRN PRN Reason: Pain Score 4-5 Polyethylene Glycol (Polyethylene Glycol 3350 17 Gm Packet) 17 gm PO DAILY [facility] Last Admin: 01/14/20 11:08 Dose: Not Given Documented by: Pravastatin Sodium (Pravastatin 40 Mg Tablet) 40 mg PO QHS [facility] Last Admin: 01/13/20 21:16 Dose: 40 mg Documented by: Prochlorperazine Edisylate (Prochlorperazine 10 Mg/2 Ml Vial) 10 mg IV Q6H PRN PRN PRN Reason: Nausea/Vomiting Sodium Chloride (0.9% Saline Lock 10 Ml Syringe) 10 - 40 ml IV UD PRN PRN Reason: SALINE FLUSH Last Admin: 01/13/20 23:17 Dose: 10 ml Documented by: Inpatient E&M: [id number] Disch Hosp
--- NOTE | 2020-01-14 14:12 | PCM.PN.CARD ---
Subjectve: The patient is status post transesophageal echocardiogram. His study demonstrated findings as noted below with concerns of a small mobile echodensity on an ICD lead in his right atrium with a differential diagnosis of fibrinous strand/material versus thrombus versus vegetation. Based upon the aforementioned findings it was elected to postpone the patient's attempt at synchronized biphasic DC cardioversion continue medical therapy with consideration for further evaluation in the future. The patient has not reported any concerning issues with his anticoagulation therapy with periods of subtherapeutic levels. At the same time the patient has not reported any fever, chills, or night sweats. Objective: Vital Signs Temp Pulse Resp BP Pulse Ox 97.4 F L 83 24 H 98/73 94 01/14/20 08:17 01/14/20 13:00 01/14/20 13:00 01/14/20 13:00 01/14/20 13:30 Oxygen Flow Rate (L/min) 2 Oxygen Delivery Method Room Air Weight: 121 lb 3.2 oz Body Mass Index (BMI) 22.1 Intake and Output for Last 24 Hours 01/12/20 01/13/20 01/14/20 23:59 23:59 23:59 Intake Total 1097.80 / 1131.10 1112.41 / 1112.41 717.01 / 717.01 Output Total 650 / 1050 725 / 725 Balance 1097.80 / 1131.10 462.41 / 62.41 -7.99 / -7.99 General: Awake, Alert, Oriented x 3, Cooperative, No Acute Distress HEENT: Atraumatic, Normocephalic, PERRL, EOMI, Sclera Non Icteric Neck: No JVD Lungs: Clear to auscultation Cardiovascular: Irregular Rhythm, Normal S1, Normal S2 Abdomen: Bowel Sounds Present, Soft Extremities: No edema Neurological: No Focal Motor or Sensory Deficit Psych/Mental Status: Appropriate 01/14/20 06:10: PT 34.2 H, INR 3.4 01/14/20 06:10: WBC 9.1, RBC 4.05 L, Hgb 12.0 L, Hct 38.0 L, MCV 93.8, MCH 29.6, MCHC 31.6 L, Plt Count 249, MPV 10.6, Immature Gran % (Auto) 0.300, Neut % (Auto) 79.4 H, Lymph % (Auto) 6.0 L, Chaves % (Auto) 11.6 H, Eos % (Auto) 2.3, Baso % (Auto) 0.4, Absolute Neuts (auto) 7.3, Nucleated RBC % 0 01/14/20 06:10: Sodium 136, Potassium 4.8, Chloride 105, Carbon Dioxide 28.0, Anion Gap 3 L, BUN 24 H, Creatinine 1.29, Est GFR (MDRD) Af Amer 70, Est GFR (MDRD) Non-Af 58 L, BUN/Creatinine Ratio 18.6, Glucose 108 H, Calcium 8.7, Total Bilirubin 3.00 H Rhythm: Atrial fibrillation Transesophageal echocardiogram: Interpretation Summary The entirety of the left ventricle is not well visualized and thus comments regarding the entirety of the left ventricular wall motion cannot be made at this time, however, based upon the images obtained, especially in the transgastric view, there does appear to be evidence of left ventricular regional wall motion abnormalities and paradoxical septal wall motion potentially compatible with an underlying IVCD and/or a post open heart surgery state and overall diminished LV systolic function. The left atrium is moderately enlarged. There is mild sponatenous contrast in the left atrium. No thrombus is detected in the left atrial appendage. The right atrium is mildly enlarged. Stable appearing mechanical mitral valve apparatus. MIld (1+) transvalvular insufficiency of the mitral valve. Moderate (2+) tricuspid valve insufficiency. Stable appearing mechanical aortic valve apparatus. Abnormal color flow Doppler compatible with a small PFO with left to right interatrial shunt. Abnormal agitated saline contrast study compatible with a small PFO with a right to left interatrial shunt. ICD or pacer leads identified within the right atrium ICD or pacer leads identified within the right ventricle. Comment: Small mobile echodensity noted on the ICD lead in the right atrium compatible with a differential diagnosis of fibrinous strands/material, thrombus, or vegetation. Clinical correlation recommended. Medical Necessity - Tobacco Use Smoking Status: Never smoker Tobacco Use: Chew Assessment/Plan 1. Atrial fibrillation-paroxysmal The patient apparently has a history of paroxysmal atrial fibrillation/flutter. He has been on rate limiting therapy with his beta-feroz secondary to his other cardiovascular condition. He has been on anticoagulant therapy secondary to his mechanical mitral valve/aortic valve condition. He does not recall any subtherapeutic INR levels. At the present time he will continue to be monitored. He will continue rate limiting therapy. He is being changed from IV amiodarone to oral amiodarone. He has remained on anticoagulant therapy. He has undergone MYRTLE with the aforementioned findings. Based upon these findings it was elected to hold on proceeding with synchronized biphasic DC cardioversion at this time. The tentative plan will be for outpatient cardiovascular follow-up on medical therapy and INR follow-up to ensure appropriate anticoagulation levels. In the future the patient can be considered for a repeat MRYTLE to reassess this area and depending upon the findings consideration for synchronized biphasic DC cardioversion. Of note the patient may have fibrinous strands/material on his ICD lead and based upon being on systemic anticoagulant therapy at therapeutic levels less likely thrombus and based upon no other clinical suspicion of an underlying infectious related etiology to be less likely related to infectious endocarditis. 2. Valvular heart disease: Status post MVR-mechanical and status post AVR-mechanical The patient reports that he has both mechanical mitral and aortic valve prosthesis. At the present time he has been evaluated noninvasively as noted. His prosthetic mitral and aortic valves appear to be stable. He will need to continue AHA antibiotic prophylaxis as deemed appropriate as well as anticoagulant therapy as deemed appropriate. 3. Cardiomyopathy It appears the patient has a history of an underlying cardiomyopathy. Based upon today's echocardiogram his overall LV systolic function appears to have decreased compared to 2014. This history may be part of the etiology for the patient's ICD. At the moment the patient does not appear to have evidence of acute systolic mediated CHF based upon his history or examination. However he needs to be monitored for such. He will need to be treated as deemed appropriate. Over time as the patient's clinical course proceeds, noting the patient's diminished LV systolic function and his appearance of an underlying left bundle branch block pattern, he may need to be considered for an upgrade of his dual-chamber ICD to a biventricular ICD/WATER [employer]PER device. 4. Abnormal cardiac enzymes He does have abnormal cardiac enzymes. They have remained indeterminate without significant fluctuation. This may be secondary to his atrial dysrhythmia superimposed upon his cardiomyopathy as a type II event versus a primary type I event. He will continue his ongoing evaluation and care. His pharmacologic stress nuclear imaging study appeared to be negative for evidence of stress-induced myocardial ischemia. Thus his enzymes are thought related to a type II event based upon his cardiac dysrhythmia superimposed upon his underlying cardiomyopathy. 5. Chronic renal sufficiency The patient appears to have an element of chronic renal insufficiency. His creatinine level has improved. This will need to be followed and taken into consideration with respect to his ongoing evaluation and care. Comment: The patient's case has been viewed with the patient and this information has been forwarded to the [facility] staff. This note was generated using a voice recognition system and there may be incorrect words, spelling or punctuation that were not noted when reviewing the office note prior to saving.
--- NOTE | 2020-01-14 14:39 | PHA.DC.MC ---
Pharmacy Service has performed discharge medication reconciliation and counseling for this patient. 1. AMIODARONE 200MG PO TID X 1 WEEK, THEN BID X 2 WEEKS, THEN ONCE DAILY THEREAFTER The patient's discharge medication list was reviewed for discrepancies and discrepancies were resolved. Home Medications Aspirin [Aspirin, Baby] 81 mg PO DAILY@0800 01/12/20 Pravastatin [Pravachol] 40 mg PO DAILY 01/12/20 Amiodarone HCl [Cordarone] 200 mg PO TID #120 tab 01/14/20 Carvedilol [Coreg (Beta Baylee)] 12.5 mg PO BIDCM #120 tab 01/14/20 Warfarin [Coumadin] 2 mg PO DAILY #0 01/14/20 The patient was counseled on the following discharge medications and changes in medications for homegoing were reviewed. The Reason for Use, instructions for use, and potential side effects were reviewed for all new medications. The patient's questions regarding all of their medications were answered. The patient was able to verbally demonstrate an understanding of their discharge medications.
== END 2020-01-14 17:20 | disposition home or self-care (01) | DRG 282 ==
LOC: ED 13:21 → PCU 14:02
PROVIDERS: Internal Medicine Cardiovascular Disease; Physician Assistant; Admitting Provider Student in an Organized Health Care Education/Training Program; Emergency Provider Emergency Medicine; PCP Family Medicine; Visit Provider Internal Medicine
DX: I48.0 Paroxysmal atrial fibrillation (principal); I21.A1 Myocardial infarction type 2; I42.9 Cardiomyopathy, unspecified; I12.9 Hypertensive chronic kidney disease with stage 1 through stage 4 chronic kidney disease, or unspecified chronic kidney disease; N18.30 Chronic kidney disease, stage 3 unspecified; E78.5 Hyperlipidemia, unspecified; Z79.01 Long term (current) use of anticoagulants; Z79.899 Other long term (current) drug therapy; Z95.2 Presence of prosthetic heart valve; Z95.810 Presence of automatic (implantable) cardiac defibrillator
CPT/HCPCS: 36415; 71045; 78452; 80048; 80053; 80061; 80076; 83735; 83880; 84443; 84484; 85025; 85610; 85730; 87426; 93005; 93017; 93306; 93312; 93320; 93325; 97161; 97166; 99285; A9500; J7040; A4216; J2785

== ENCOUNTER 2020-01-18 08:08 | Inpatient (IN) | payer BC, MEDICARE, SELFPAY ==
[2020-01-13 22:13] VITALS: BMI 22.1
[2020-01-18] VITALS (12 sets, daily range): BP systolic 127–148; BP diastolic 65–93; PULSE 57–74; RESP 18–29; TEMP 36.4–37.1; O2SAT 85–98; BMI 22.2; BMI 21.7
--- NOTE | 2020-01-18 08:20 | RAD_ITS ---
EXAM DESCRIPTION: PORTABLE AP CHEST CLINICAL HISTORY: 74 years Male, SUDDEN ONSET EPIGASTRIC CHEST PAIN DURING THE NIGHT -- SOB AND COUGH -- PT HAD COVID 6 WEEKS AGO SUDDEN ONSET EPIGASTRIC CHEST PAIN DURING THE NIGHT -- SOB AND COUGH -- PT HAD COVID 6 WEEKS AGO COMPARISON: Previous portable chest obtained on 01/12/2020 FINDINGS: A left cardiac pacemaker is noted in place. Sternotomy sutures and a heart valve prosthesis are also seen. The rest of the thorax is intact.The heart and mediastinum appear to be within normal limits. Bilateral alveolar infiltrates are identified more pronounced on the right. These pneumonic infiltrates are now more pronounced in extensive than noted previously on the prior study of 01/12/2020. RAD/Chest 1 View (Portable) IMPRESSION: Bilateral pneumonic infiltrates are identified which have increased. Electronically Signed: Lencho Keller, at 9:08 EST Tel , Service support ,
--- NOTE | 2020-01-18 08:20 | EKG12_ITS ---
Test Reason : CP Blood Pressure : / mmHG Vent. Rate : 072 BPM Atrial Rate : 072 BPM P-R Int : 196 ms QRS Dur : 152 ms QT Int : 426 ms P-R-T Axes : 044 -38 173 degrees QTc Int : 466 ms Normal sinus rhythm Left axis deviation Left bundle branch block Abnormal ECG Confirmed by SVETLANA IRIZARRY, KENNETH ([id number]), greeting card editor DELONTE LEON ([id number]) on 01/20/2020 10:40:17 AM Referred By: Confirmed By:KENNETH MOTA MD
--- NOTE | 2020-01-18 08:23 | ED.DCSUM_ITS ---
History of Present Illness Chief Complaint: Chest Pain Informant: Patient Narrative: Mr. Ozuna is a very pleasant 74-year-old male presenting via EMS with a chief complaint of epigastric chest pain and shortness of breath. He is found to be hypoxic by EMS. He states that his says that his face appears puffy. He thought he had a fever at home but did not have 1 for EMS. Patient was admitted last week with Kimberly hancock with RVR and underwent a MYRTLE. There was questionable fibrous strands on the end of one of his ICD wires. Echocardiogram showed ejection fraction of 20% with severe left ventricular diastolic dysfunction. Pulmonary hypertension with pressures at 50. He is on Coumadin and portably has been therapeutic. He tells me he had COVID-19 6 weeks ago but is unsure if he was swabbed for definitive diagnosis. He does note a slight cough. He denies any leg swelling. 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 He states that his shortness of breath really became significant during the night. 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 (5) S/P AVR (aortic valve replacement) Status: Chronic (6) S/P MVR (mitral valve replacement) Status: Chronic Past Medical History - Allergies and Home Meds Allergies/Adverse Reactions: Allergies No Known Allergies Allergy (Verified 01/12/20 10:41) Primary Care Physician: Lawrence Cross MD [Primary Care Provider] - Prior records reviewed: Yes Surgical History: - - Aortic and mitral valve replacements, pacemaker insertion Lives: Spouse/ Significant Other Smoking Status: Former smoker Alcohol: None Drugs: None - Family History Maternal Family History: Reports: No pertinent history Paternal Family History: Reports: No pertinent history Sibling Family History: Reports: Heart Disease Review of Systems General: Denies: Chills, Fever, Sweats Eyes: Denies: Visual changes - bilaterally, Diplopia ENT: Denies: Rhinorrhea, Sore throat Cardiovascular: Reports: Chest pain. Denies: Palpitations Respiratory: Reports: Dyspnea, Cough, Dyspnea on exertion. Denies: Orthopnea Gastrointestinal: Denies: Abdominal pain, Nausea, Vomiting, Diarrhea, Melena, Hematochezia Genitourinary: Denies: Dysuria, Hematuria, Frequency Musculoskeletal: Denies: Back pain, Extremity Pain Skin: Denies: Rash, Wounds Neurological: Denies: Headache, Weakness, Numbness Physical Exam Vital Signs/Narrative: Vital Signs Temp Pulse Resp BP Pulse Ox 01/18/20 08:19 95 01/18/20 08:16 97.6 F L 71 29 H 146/93 H 94 01/18/20 08:10 97.6 F L 72 22 H 141/93 H 85 Inital Vital Signs reviewed: Yes General: Well nourished, Well developed, No Acute Distress, - - Patient appears ill/fatigued Head: Normocephalic, Atraumatic Eyes: Perrl, EOMI ENT: Moist mucous membranes, No rhinorrhea Neck: Supple, Nontender Cardiovascular: Regular rate, Regular rhythm, No murmurs Respiratory: No distress, CTA bilaterally, Chest nontender Abdomen: Soft, Nontender, Nondistended, Normal bowel sounds Back: Nontender, Normal Inspection Extremities: Nontender, No edema Skin: Normal color, No rash Neurological: Alert, Oriented x3, Cranial nerves II-XII grossly intact, Normal Strength, Normal Sensation Psychological: Normal affect, Normal Mood Diagnostic/Tx/Re-eval Clinical Impression(s) from Imaging Studies Chest X-Ray 01/18/20 08:20 IMPRESSION: Bilateral pneumonic infiltrates are identified which have increased. Electronically Signed: Lencho Keller at 9:08 EST Tel , Service support , Chest CTA 01/18/20 09:20 IMPRESSION: 1. Normal CT pulmonary angiogram with no evidence of pulmonary embolism. 2. Congestive heart failure with large right lung base pleural effusion and a smaller left lung base pleural effusion. Electronically Signed: Lencho Keller at 10:26 EST Tel , Service support , Laboratory Last Values WBC 10.1 K/mm3 (4.4-11.0) 01/18/20 08:20 RBC 4.03 M/mm3 (4.6-6.2) L 01/18/20 08:20 Hgb 12.2 g/dL (13.0-16.5) L 01/18/20 08:20 Hct 37.5 % (40-54) L 01/18/20 08:20 MCV 93.1 fL (80-94) 01/18/20 08:20 MCH 30.3 pg (27.0-32.0) 01/18/20 08:20 MCHC 32.5 g/dL (32-36) 01/18/20 08:20 RDW Std Deviation 48.2 fl (35.1-43.9) H 01/18/20 08:20 RDW Coeff of Patricia 14.2 % (11.6-14.6) 01/18/20 08:20 Plt Count 342 K/mm3 (150-450) 01/18/20 08:20 MPV 10.3 fl (6.2-12.0) 01/18/20 08:20 Immature Gran % (Auto) 0.500 % (0.0-0.9) 01/18/20 08:20 Neut % (Auto) 81.8 % (47-70) H 01/18/20 08:20 Lymph % (Auto) 6.1 % (19-41) L 01/18/20 08:20 George % (Auto) 10.2 % (0-10) H 01/18/20 08:20 Eos % (Auto) 1.0 % (0-5) 01/18/20 08:20 Baso % (Auto) 0.4 % (0-1) 01/18/20 08:20 Absolute Neuts (auto) 8.3 X10^3/uL (2.0-7.7) H 01/18/20 08:20 Absolute Lymphs (auto) 0.62 X10^3/uL (0.83-4.51) L 01/18/20 08:20 Nucleated RBC % 0 % (0-5) 01/18/20 08:20 PT 28.9 SECONDS (11.7-14.9) H 01/18/20 08:20 INR 2.8 01/18/20 08:20 APTT 39.7 Seconds (24.1-36.2) H 01/18/20 08:20 Sodium 138 mmol/L (136-145) 01/18/20 08:20 Potassium 4.4 mmol/L (3.5-5.1) 01/18/20 08:20 Chloride 103 mmol/L (98-107) 01/18/20 08:20 Carbon Dioxide 30.0 mmol/L (21.0-32.0) 01/18/20 08:20 Anion Gap 5 (5-15) 01/18/20 08:20 BUN 29 mg/dL (7-18) H 01/18/20 08:20 Creatinine 1.28 mg/dL (0.70-1.30) 01/18/20 08:20 Estim Creat Clear Calc 39.10 ml/min 01/18/20 08:20 Est GFR (MDRD) Af Amer 71 mL/min (>60) 01/18/20 08:20 Est GFR (MDRD) Non-Af 58 mL/min (>60) L 01/18/20 08:20 BUN/Creatinine Ratio 22.7 RATIO (10-20) H 01/18/20 08:20 Glucose 117 mg/dL (74-106) H 01/18/20 08:20 Lactic Acid 1.7 mmol/L (0.4-1.9) 01/18/20 08:20 Calcium 8.9 mg/dL (8.5-10.1) 01/18/20 08:20 Total Bilirubin 2.30 mg/dL (0.20-1.00) H 01/18/20 08:20 AST 9 U/L (15-37) L 01/18/20 08:20 ALT 20 U/L (16-61) 01/18/20 08:20 Alkaline Phosphatase 119 U/L (45-117) H 01/18/20 08:20 Troponin I 0.199 ng/mL (<0.045) H 01/18/20 08:20 B-Natriuretic Peptide 1466.7 pg/mL (0-100) H 01/18/20 08:20 Total Protein 6.9 g/dL (6.4-8.2) 01/18/20 08:20 Albumin 3.8 g/dL (3.2-5.0) 01/18/20 08:20 Globulin 3.1 g/dL (2.2-4.2) 01/18/20 08:20 Albumin/Globulin Ratio 1.2 RATIO (0.9-2.4) 01/18/20 08:20 - EKG Initial EKG Interpretation: Sinus Rhythm, LBBB - EKG demonstrates a normal sinus rhythm with a left bundle branch block at a rate of 72. - Medical Decision Making Chest x-ray on my interpretation shows congestive heart failure with increased right pleural effusion. EKG is in sinus rhythm with a left bundle. His beta natruretic peptide is almost 1500. Patient received IV Lasix. CTA shows congestive heart failure changes and a large pleural effusion particularly on the right. The patient is requiring supplemental oxygen. The plan is admission into the hospital. ED Disposition - Plan for ED Patient: Disposition: Acute Care Hospital [facility] Diagnosis: Acute congestive heart failure with left ventricular diastolic dysfunction, Hypoxemia, Pleural effusion, right Referrals: Lawrence Cross MD [Primary Care Provider] -
[2020-01-18 08:39] LABS: Absolute Lymphocyte Count 0.62 X10^3/uL (0.83-4.51); Absolute Neutrophil Count 8.3 X10^3/uL (2.0-7.7); Basophil# 0.04 X10^3/uL; Basophil% 0.4 % (0-1); Hematocrit 37.5 % (40-54); Hemoglobin 12.2 g/dL (13.0-16.5); Lymphocyte # 0.62 X10^3/ul (4.0); Lymphocyte % 6.1 % (19-41); Mean Corp Hgb Conc 32.5 g/dL (32-36); Mean Corpuscular Hgb 30.3 pg (27.0-32.0); Mean Corpuscular Volume 93.1 fL (80-94); Mean Platelet Vol. 10.3 fl (6.2-12.0); Monocyte# 1.03 X10^3/uL; Monocyte% 10.2 % (0-10); NRBC Flagged by Analyzer 0 % (0-5); Neutrophil # 8.28 X10^3/uL (2.7-7.7); Neutrophil % 81.8 % (47-70); Platelet Count 342 K/mm3 (150-450); RBC Distribution Width CV 14.2 % (11.6-14.6); RBC Distribution Width SD 48.2 fl (35.1-43.9); Red Blood Count 4.03 M/mm3 (4.6-6.2); White Blood Count 10.1 K/mm3 (4.4-11.0)
[2020-01-18 08:50] LABS: International Normalized Ratio 2.8; Prothrombin Time (Protime)PT. 28.9 SECONDS (11.7-14.9)
[2020-01-18 08:51] LABS: Partial Thromboplast Time 39.7 Seconds (24.1-36.2)
[2020-01-18 08:53] LABS: ALB/GLOB Ratio 1.2 RATIO (0.9-2.4); AST(SGOT) 9 U/L (15-37); Alanine Aminotransfer ALT/SGPT 20 U/L (16-61); Albumin, Serum 3.8 g/dL (3.2-5.0); Alkaline Phosphatase 119 U/L (45-117); Anion Gap 5 (5-15); BUN 29 mg/dL (7-18); BUN/Creat Ratio 22.7 RATIO (10-20); Calcium,Total 8.9 mg/dL (8.5-10.1); Chloride 103 mmol/L (98-107); Creatinine, Serum 1.28 mg/dL (0.70-1.30); EST Glomerular Filtration Rate 58 mL/min (>60); Est Glom Filt Rate - Afr Amer 71 mL/min (>60); Globulin 3.1 g/dL (2.2-4.2); Glucose 117 mg/dL (74-106); Potassium 4.4 mmol/L (3.5-5.1); Protein, Total 6.9 g/dL (6.4-8.2); Sodium Level 138 mmol/L (136-145)
[2020-01-18 09:12] LABS: BNP,B-Type NATRIURETIC PEPTIDE 1466.7 pg/mL (0-100)
[2020-01-18 09:14] LABS: Lactic Acid 1.7 mmol/L (0.4-1.9)
--- NOTE | 2020-01-18 09:20 | CT_ITS ---
STUDY: CTA CHEST REASON FOR EXAM: Male, 74 years old. HYPOXIA,CHEST PAIN,SHORT OF BREATH -- COVID X6 WKS AGO RADIATION DOSAGE (If Supplied By Facility): CTDIvol = ( 8.50 ) mGy, DLP = ( 199.17 ) mGycm TECHNIQUE: The examination was performed with the intravenous administration of IV 100mL Isovue-370. Post-processing of the angiographic images was performed, with multiplanar reformation and 3D reconstruction. Individualized dose optimization techniques were used for this CT. COMPARISON: Previous portable chest obtained on 01/18/2020 FINDINGS: CT chest with contrast. Indication: HYPOXIA,CHEST PAIN,SHORT OF BREATH -- COVID X6 WKS AGO. Technique: Multidetector CT images of the chest were obtained intravenous administration of 100 cc Omnipaque 350 without complication. Comparison: Previous portable chest obtained on the 2019. Findings: Sternotomy sutures are noted in place. Left cardiac pacemaker and a heart valve prosthesis are also seen. The rest of the thorax is intact. The heart is enlarged. Aortic valve prosthesis is noted in place. No evidence of pulmonary embolism is identified as the pulmonary arteries are well opacified and appear to be normal. Subsegmental atelectasis is seen in the right midlung with a moderate to large right lung base pleural effusion. A smaller left lung base pleural effusion is seen. CT/CTA Chest W/WO Contrast IMPRESSION: 1. Normal CT pulmonary angiogram with no evidence of pulmonary embolism. 2. Congestive heart failure with large right lung base pleural effusion and a smaller left lung base pleural effusion. Electronically Signed: Lencho Keller, at 10:26 EST Tel , Service support ,
[2020-01-18 09:57] LABS: Magnesium 2.2 mg/dL (1.6-2.6)
[2020-01-18] MEDS: Furosemide 100 MG/10 ML Vial 80 MG IV (10:12)
--- NOTE | 2020-01-18 12:09 | EKG12_ITS ---
Test Reason : Blood Pressure : / mmHG Vent. Rate : 074 BPM Atrial Rate : 074 BPM P-R Int : 192 ms QRS Dur : 168 ms QT Int : 460 ms P-R-T Axes : 048 -39 169 degrees QTc Int : 510 ms Sinus rhythm with occasional Premature ventricular complexes Left axis deviation Left bundle branch block Abnormal ECG When compared with ECG of 18-JAN-2020 08:10, MANUAL COMPARISON REQUIRED, DATA IS UNCONFIRMED Confirmed by SVETLANA IRIZARRY, KENNETH ([id number]), supervising editor trailer DELONTE LEON ([id number]) on 01/20/2020 10:56:12 AM Referred By: VIVIAN Confirmed By:KENNETH MTOA MD
--- NOTE | 2020-01-18 12:09 | HP.PCM_ITS ---
History of Present Illness Date of Admission: 01/18/20 Chief Complaint: Shortness of breath on and off for 2 to 3 weeks got worse yesterday The patient is a 74 year old M with history of chronic systolic and diastolic heart failure, EF 20% with severe left ventricular diastolic dysfunction valvular heart disease status post aortic and mitral valve replacement, last week admission for ASusan hancock with RVR underwent MYRTLE but not cardioverted on amiodarone came to ED with shortness of breath that got worse yesterday. Patient also felt short of breath in the [employer] while singing. Patient has on and off shortness of breath for 2 to 3 weeks. He also had midsternal chest pain, localized 5-6/10 intensity, pressure-like lasted for few hours. Patient is on Coumadin and INR is therapeutic. In ED, EKG shows sinus rhythm with left bundle branch block, LAD. Chest x-ray shows bilateral pleural effusion, right more than left. BNP 1500. Patient blood pressure 141/93, respiratory rate 22?29 /min, pulse ox 95% on room air. CT chest was done which showed large right lung base pleural effusion and small left pleural effusion. Patient was given 80 mg IV Lasix and admitted [] Past Medical History Past Medical History (Chronic Problems): Chronic Problems Atrial fibrillation with RVR (Chronic) S/P MVR (mitral valve replacement) (Chronic) S/P AVR (aortic valve replacement) (Chronic) Cardiomyopathy (Chronic) ICD (implantable cardioverter-defibrillator) in place (Chronic) Renal insufficiency (Chronic) Allergies No Known Allergies Allergy (Verified 01/12/20 10:41) Home Medications: Ambulatory Orders Medication Instructions Recorded Aspirin [Aspirin, Baby] 81 mg PO DAILY@0800 01/12/20 Pravastatin [Pravachol] 40 mg PO DAILY 01/12/20 Amiodarone HCl [Cordarone] 200 mg PO TID #120 tab 01/14/20 Carvedilol [Coreg (Beta Baylee)] 12.5 mg PO BIDCM #120 tab 01/14/20 Warfarin [Coumadin] 2 mg PO DAILY #0 01/14/20 Surgical History: - - Aortic and mitral valve replacements, pacemaker insertion Psychiatric History: No pertinent psych hx Lives: Spouse/ Significant Other Smoking Status: Former smoker Alcohol: None Drugs: None - *Family History Maternal History Items: No pertinent history Paternal History Items: No pertinent history Sibling History Items: Heart Disease Review of Systems Constitutional: Denies: Chills, Fever, Weight Change HEENT: Denies: Head Aches, Sinus Congestion, Sinus Drainage Cardiovascular: Reports: Chest Pain, Chest Pressure. Denies: Palpitations Respiratory: Reports: Shortness of breath at rest, Shortness of breath upon exertion. Denies: Cough, Sputum production, Wheezing Gastrointestinal: Denies: Abdominal Pain, Nausea, Vomiting Genitourinary: Denies: Dysuria, Frequency Musculoskeletal: Denies: Joint Pain, Joint Tenderness Skin: Denies: Rash, Wounds Neurological: Denies: Numbness, Tingling, Focal weakness Psychiatric: Denies: Anxiety, Depression, Homicidal Ideations, Suicidal Ideations Hematologic/ Lymphatic: Denies: Easy Bruising, Easy Bleeding VTE Information - Inpt Only VTE Present on Admission: No VTE Mechan Device Prophylaxis: None VTE Pharm Prophylaxis ordered?: No Reason prophylaxis not ordered:: Procedure Not Indicated - Already on Coumadin Patient Problems: Active and Suspected Problems Anticoagulated on Coumadin (Acute) Acute congestive heart failure with left ventricular diastolic dysfunction (Acute) Hypoxemia (Acute) Pleural effusion, right (Acute) - Physical Exam Vitals/I&O's: Vital Signs Temp Pulse Resp BP Pulse Ox 97.6 F L 74 18 135/70 H 97 01/18/20 11:05 01/18/20 11:05 01/18/20 11:05 01/18/20 11:05 01/18/20 11:05 Oxygen Flow Rate (L/min) 2 Oxygen Delivery Method Nasal Cannula Weight: 121 lb 7.595 oz Body Mass Index (BMI) 22.2 Intake and Output for Last 24 Hours 01/16/20 01/17/20 01/18/20 23:59 23:59 23:59 Output Total 480 / 480 Balance -480 / -480 General: Alert, Oriented x3, Cooperative HEENT: Atraumatic, PERRLA, EOMI, Normocephalic Neck: Supple, No JVD, Negative Carotid Bruits Lungs: Diminished - Air entry diminished in right lung base, Short of Breath, Tachypneic, - - Stony dullness on right lung base. Right more than left pleural effusion Cardiovascular: Regular rate, Regular Rhythm, Normal S1, Normal S2, Murmur - Mitral and aortic valve click with murmur present, holosystolic with radiation to axilla Abdomen: Bowel Sounds Present, Soft, Non Tender Extremities: No edema, Capillary Refill Less than 3 Seconds Skin: No rashes, No breakdown Musculoskeletal: No Tenderness to Palpation of Joints or Extremities Neurological: Cranial nerves II-XII grossly intact Psych/Mental Status: Normal Affect, Appropriate Laboratory Results 01/18/20 08:20: WBC 10.1, RBC 4.03 L, Hgb 12.2 L, Hct 37.5 L, MCV 93.1, MCH 30.3, MCHC 32.5, RDW Std Deviation 48.2 H, RDW Coeff of Patricia 14.2, Plt Count 342, MPV 10.3, Immature Gran % (Auto) 0.500, Neut % (Auto) 81.8 H, Lymph % (Auto) 6.1 L, Carver % (Auto) 10.2 H, Eos % (Auto) 1.0, Baso % (Auto) 0.4, Absolute Neuts (auto) 8.3 H, Absolute Lymphs (auto) 0.62 L, Nucleated RBC % 0 01/18/20 08:20: PT 28.9 H, INR 2.8, APTT 39.7 H 01/18/20 08:20: Sodium 138, Potassium 4.4, Chloride 103, Carbon Dioxide 30.0, Anion Gap 5, BUN 29 H, Creatinine 1.28, Estim Creat Clear Calc 39.10, Est GFR (MDRD) Af Amer 71, Est GFR (MDRD) Non-Af 58 L, BUN/Creatinine Ratio 22.7 H, Glucose 117 H, Calcium 8.9, Total Bilirubin 2.30 H, AST 9 L, ALT 20, Alkaline Phosphatase 119 H, Troponin I 0.199 H, Total Protein 6.9, Albumin 3.8, Globulin 3.1, Albumin/Globulin Ratio 1.2 01/18/20 08:20: Lactic Acid 1.7 01/18/20 08:20: B-Natriuretic Peptide 1466.7 H 01/18/20 08:20: Magnesium 2.2 Current Medications Acetaminophen (Acetaminophen 325 Mg Tablet) 650 mg PO Q6H PRN PRN PRN Reason: Pain Score 1-10/Temp > 100.7 F Furosemide (Furosemide 40 Mg/4 Ml Vial) 40 mg IV BID@1000,1800 FRITZ Lisinopril (Lisinopril 2.5 Mg Tablet) 2.5 mg PO DAILY [facility] Morphine Sulfate (Morphine 2 Mg/Ml Syringe) 2 mg IV Q3H PRN PRN PRN Reason: Pain Score 6-10 Nitroglycerin (Nitroglycerin (Inpatient Use) 0.4 Mg Tab.Subl) 0.4 mg SUBLINGUAL Q5M PRN PRN Reason: CARDIAC/CHEST PAIN Oxycodone HCl (Oxycodone 5 Mg Tablet) 5 mg PO Q4H PRN PRN PRN Reason: Pain Score 4-5 Senna/Docusate Sodium (Senna/Docusate Sodium 1 Tablet) 2 tablet PO BID PRN PRN PRN Reason: Constipation Assessment/Plan All Active Problems Anticoagulated on Coumadin (Acute) Abnormal cardiac enzyme level (Acute) Acute congestive heart failure with left ventricular diastolic dysfunction (Acute) Hypoxemia (Acute) Pleural effusion, right (Acute) The patient is a 74 year old M with history of chronic systolic and diastolic heart failure, EF 20% with severe left ventricular diastolic dysfunction valvular heart disease status post aortic and mitral valve replacement, last week admission for A. fib with RVR underwent MYRTLE but not cardioverted on amiodarone came to ED with shortness of breath that got worse for 1 day. 1. Acute on chronic combined heart failure status post AICD: Patient recently had echo on 01/12/2020 which showed EF 20%, LA moderately enlarged, stable Epting mechanical mitral valve and aortic valve apparatus. Moderate 2+ TR, RVSP 50 mmHg consistent with moderate pulmonary hypertension. Heart failure core measures including daily weight monitoring, strict intake and output, low-salt diet. Started on Lasix 40 mg IV twice daily. Patient already on carvedilol. Low-dose lisinopril 2.5 mg daily. Continue statin. Patient has bilateral pleural effusion, right more than left. Previous chest x-ray on 01/11 right lung base atelectasis with elevation of right hemidiaphragm and increased markings of right lung base and right upper lobe 2. Atypical chest pain, concern of unstable angina: First troponin elevated 0.199. During recent admission on 01/11 patient also had elevated troponin 0 0.35, 0.229, 0.322 therefore troponin has improved. Medical management for now. 3. Valvular heart disease status post mitral valve replacement and aortic valve replacement with paroxysmal A. fib status post MYRTLE: MYRTLE was done on 01/13 reported no thrombus in left atrial appendage LA moderately enlarged, RA mildly enlarged. At that time patient was not cardioverted but started on amiodarone. Patient is spontaneously converted on amiodarone. ED EKG EKG shows sinus rhythm with left bundle branch block, LAD. Continue Coumadin. INR 2.8. Therapeutic 4. Chronic kidney disease stage III: BUN/creatinine is stable at 29/1.28. 5. Dyslipidemia: On statin 6. Recent COVID-19 infection about 6 weeks ago. Currently no cough. Recovered. Bilateral pleural effusion may be reactive to recent COVID-19 infection DT prophylaxis: Already on Coumadin INR is therapeutic. CODE STATUS full as per last H&P. Inpatient E&M: 67184 Init Hosp L3
[2020-01-18] MEDS: Amiodarone 200 MG Tablet PO ×2 (15:03→21:48)
[2020-01-18] MEDS: 0.9% Saline Lock 10 ML Syringe IV (17:08)
[2020-01-18] MEDS: Carvedilol 12.5 MG Tablet PO (17:08)
[2020-01-18] MEDS: Jantoven 2 MG Tablet PO (17:08)
[2020-01-18] MEDS: Furosemide 40 MG/4 ML Vial IV (17:08)
[2020-01-18] MEDS: Pravastatin 40 MG Tablet PO (21:48)
[2020-01-19] VITALS (11 sets, daily range): BP systolic 86–111; BP diastolic 51–62; PULSE 57–66; RESP 16–18; TEMP 36.6–36.9; O2SAT 94–97
[2020-01-19] MEDS: Amiodarone 200 MG Tablet PO ×2 (05:26→20:37)
[2020-01-19 08:02] LABS: Absolute Lymphocyte Count 0.58 X10^3/uL (0.83-4.51); Absolute Neutrophil Count 5.6 X10^3/uL (2.0-7.7); Basophil# 0.04 X10^3/uL; Basophil% 0.6 % (0-1); Eosinophil# 0.19 X10^3/uL; Eosinophils% 2.6 % (0-5); Hematocrit 38.4 % (40-54); Hemoglobin 12.3 g/dL (13.0-16.5); Lymphocyte # 0.58 X10^3/ul (4.0); Mean Corpuscular Hgb 29.6 pg (27.0-32.0); Mean Corpuscular Volume 92.5 fL (80-94); Mean Platelet Vol. 10.4 fl (6.2-12.0); Monocyte# 0.84 X10^3/uL; Monocyte% 11.6 % (0-10); NRBC Flagged by Analyzer 0 % (0-5); Neutrophil # 5.57 X10^3/uL (2.7-7.7); Neutrophil % 76.8 % (47-70); POSITIVE DIFFERENTIAL YES; Platelet Count 306 K/mm3 (150-450); RBC Distribution Width CV 14.2 % (11.6-14.6); RBC Distribution Width SD 47.8 fl (35.1-43.9); Red Blood Count 4.15 M/mm3 (4.6-6.2); White Blood Count 7.3 K/mm3 (4.4-11.0)
[2020-01-19 08:08] LABS: Differential Indicated SCAN CRITERIA MET
[2020-01-19] MEDS: 0.9% Saline Lock 10 ML Syringe IV (08:23)
[2020-01-19] MEDS: Lisinopril 2.5 MG Tablet PO (08:23)
[2020-01-19] MEDS: Furosemide 40 MG/4 ML Vial IV (08:23)
[2020-01-19] MEDS: Aspirin 81 MG TAB.CHEW PO (08:23)
[2020-01-19] MEDS: Carvedilol 12.5 MG Tablet PO (08:23)
[2020-01-19 08:24] LABS: Anion Gap 5 (5-15); BUN 28 mg/dL (7-18); BUN/Creat Ratio 20.7 RATIO (10-20); Chloride 98 mmol/L (98-107); Creatinine, Serum 1.35 mg/dL (0.70-1.30); EST Glomerular Filtration Rate 55 mL/min (>60); Est Glom Filt Rate - Afr Amer 66 mL/min (>60); Estimated Creatinine Clearance 35.51 ml/min; Glucose 86 mg/dL (74-106); Magnesium 2.2 mg/dL (1.6-2.6); Potassium 3.8 mmol/L (3.5-5.1); Sodium Level 137 mmol/L (136-145)
[2020-01-19 08:35] LABS: Differential Comment SCANNED
[2020-01-19 08:40] LABS: BNP,B-Type NATRIURETIC PEPTIDE 930.3 pg/mL (0-100)
[2020-01-19 08:56] LABS: International Normalized Ratio 3.2; Prothrombin Time (Protime)PT. 32.3 SECONDS (11.7-14.9)
--- NOTE | 2020-01-19 11:48 | CASEMGMT ---
Readmission chart review: Pt initially admitted 01/11-01/14/2020 for Afib w/ RVR. During this visit, pt with EF of 20% on ECHO and had a MYRTLE but was not cardioverted at that time. Pt was placed on amiodarone po and has since converted to SR. Pt readmitted 01/18/2020 for Acute CHF, hypoxia. Pt c/o SOB which has persisted for the last several weeks. Pt with bilat pleural effusions with right greater than left and started on lasix 40mg twice daily. Pt with elevated troponin during 1st visit and has since improved to 0.193. Pt's current BNPT is 930.3. Pt is currently on room air. CM to follow for home oxygen and any further discharge planning/needs. John SOOD CM
--- NOTE | 2020-01-19 12:07 | RAD_ITS ---
EXAM DESCRIPTION: PORTABLE AP CHEST CLINICAL HISTORY: 74 years Male, BILATERAL PLEURAL EFFUSION BILATERAL PLEURAL EFFUSION COMPARISON: Previous portable chest obtained on 01/18/2020 FINDINGS: A left cardiac pacemaker is noted in place. Sternotomy sutures and heart valve prosthesis are also seen. The rest of the thorax is intact. The heart and mediastinum appear to be within normal limits. The lungs show mild alveolar infiltrates of lungs bilaterally which have considerably improved when compared with the previous chest x-ray. Now noted is a moderate sized right lung base pleural effusion. This pleural effusion layers along the right lateral chest wall in the right lateral decubitus position. The patient is in the left lateral decubitus position no layering of pleural effusion is seen along the left lateral chest wall. RAD/Chest Min 4 Views IMPRESSION: 1. Mild bilateral alveolar infiltrates are identified which have significantly improved when compared with previous chest. 2. A moderate sized free right lung base pleural effusion is identified. Electronically Signed: Lencho Keller, at 7:56 EST Tel , Service support ,
--- NOTE | 2020-01-19 16:40 | PCM.PN.HOSP ---
Patient Problems: Active and Suspected Problems Anticoagulated on Coumadin (Acute) Acute congestive heart failure with left ventricular diastolic dysfunction (Acute) Hypoxemia (Acute) Pleural effusion, right (Acute) Reason for Visit: seen and examined in the morning. Patient said he is 80% better in breathing with shortness of breath much improved. No wheezing. Patient blood pressure dropped to 86/41 after Lasix 40 mg IV in the morning but as per the nursing staff his blood pressure normally stays in the 90s as he was admitted last week for A. fib with RVR. Patient chest x-ray shows decrease in alveolar opacity and pleural effusion discussed with the radiologist. Physical exam General: Alert, Oriented x3, Cooperative HEENT: Atraumatic, PERRLA, EOMI, Normocephalic Oral: No Gingival or Mucosal Lesions/ Ulcerations Neck: Supple, No JVD, Negative Carotid Bruits Lungs: Air entry diminished in bilateral lung bases. No crepitation/rhonchi. Story dullness at right eighth ICS and at left lung base suggestive of bilateral pleural effusion. Cardiovascular: Regular rate, Regular Rhythm, Normal S1, Normal S2, Mitral and aortic valve click with murmur present, holosystolic with radiation to axilla Abdomen: Bowel Sounds Present, Soft, Non Tender, Non-Distended : No renal angle tenderness. No suprapubic tenderness. Extremities: Mild subtle bilateral ankle edema, Capillary Refill Less than 3 Seconds Skin: No rashes, No breakdown Musculoskeletal: No Tenderness to Palpation of Joints or Extremities Neurological: Cranial nerves II-XII grossly intact, Deep Tendon Reflexes 2+/4 and Symmetrical, Neuro grossly intact Psych/Mental Status: Normal Affect, Appropriate. Vitals/I&O's: Vital Signs Temp Pulse Resp BP Pulse Ox 97.8 F 63 18 98/54 L 94 01/19/20 13:56 01/19/20 14:55 01/19/20 13:56 01/19/20 13:56 01/19/20 13:56 Oxygen Flow Rate (L/min) 2 Oxygen Delivery Method Room Air Weight: 115 lb 4.828 oz Body Mass Index (BMI) 21.7 Intake and Output for Last 24 Hours 01/17/20 01/18/20 01/19/20 23:59 23:59 23:59 Intake Total 720 / 940 700 / 700 Output Total 1930 / 3330 1700 / 1700 Balance -1210 / -2390 -1000 / -1000 Laboratory Results 01/18/20 16:04: Troponin I 0.193 H 01/18/20 19:14: Troponin I 0.193 H 01/19/20 06:35: WBC 7.3, RBC 4.15 L, Hgb 12.3 L, Hct 38.4 L, MCV 92.5, MCH 29.6, MCHC 32.0, RDW Std Deviation 47.8 H, RDW Coeff of Patricia 14.2, Plt Count 306, MPV 10.4, Immature Gran % (Auto) 0.400, Neut % (Auto) 76.8 H, Lymph % (Auto) 8.0 L, Doddridge % (Auto) 11.6 H, Eos % (Auto) 2.6, Baso % (Auto) 0.6, Absolute Neuts (auto) 5.6, Absolute Lymphs (auto) 0.58 L, Nucleated RBC % 0, Differential Comment SCANNED 01/19/20 06:35: Sodium 137, Potassium 3.8, Chloride 98, Carbon Dioxide 34.0 H, Anion Gap 5, BUN 28 H, Creatinine 1.35 H, Estim Creat Clear Calc 35.51, Est GFR (MDRD) Af Amer 66, Est GFR (MDRD) Non-Af 55 L, BUN/Creatinine Ratio 20.7 H, Glucose 86, Calcium 9.0, Magnesium 2.2 01/19/20 06:35: B-Natriuretic Peptide 930.3 H 01/19/20 06:35: PT 32.3 H, INR 3.2 Current Medications Acetaminophen (Acetaminophen 325 Mg Tablet) 650 mg PO Q6H PRN PRN PRN Reason: Pain Score 1-10/Temp > 100.7 F Amiodarone HCl (Amiodarone 200 Mg Tablet) 200 mg PO TID [facility] Stop: 01/21/20 22:01 Last Admin: 01/19/20 13:57 Dose: Not Given Documented by: Amiodarone HCl (Amiodarone 200 Mg Tablet) 200 mg PO BID [facility] Stop: 02/04/20 22:01 Amiodarone HCl (Amiodarone 200 Mg Tablet) 200 mg PO DAILY [facility] Aspirin (Aspirin 81 Mg Tab.Chew) 81 mg PO DAILY@0800 [facility] Last Admin: 01/19/20 08:23 Dose: 81 mg Documented by: Carvedilol (Carvedilol 6.25 Mg Tablet) 6.25 mg PO BIDCM [facility] Furosemide (Furosemide 40 Mg Tablet) 40 mg PO DAILY [facility] Sodium Chloride () 250 mls @ 15 mls/hr IV .[id number] PRN PRN Reason: Saline Flush Sodium Chloride () 250 mls @ 15 mls/hr IV .[id number] PRN PRN Reason: Additional IVPB Infusion Lisinopril (Lisinopril 2.5 Mg Tablet) 2.5 mg PO DAILY [facility] Morphine Sulfate (Morphine 2 Mg/Ml Syringe) 2 mg IV Q3H PRN PRN PRN Reason: Pain Score 6-10 Nitroglycerin (Nitroglycerin (Inpatient Use) 0.4 Mg Tab.Subl) 0.4 mg SUBLINGUAL Q5M PRN PRN Reason: CARDIAC/CHEST PAIN Oxycodone HCl (Oxycodone 5 Mg Tablet) 5 mg PO Q4H PRN PRN PRN Reason: Pain Score 4-5 Pravastatin Sodium (Pravastatin 40 Mg Tablet) 40 mg PO QHS [facility] Last Admin: 01/18/20 21:48 Dose: 40 mg Documented by: Senna/Docusate Sodium (Senna/Docusate Sodium 1 Tablet) 2 tablet PO BID PRN PRN PRN Reason: Constipation Sodium Chloride (0.9% Saline Lock 10 Ml Syringe) 10 - 40 ml IV UD PRN PRN Reason: SALINE FLUSH Last Admin: 01/19/20 08:23 Dose: 10 ml Documented by: Warfarin Sodium (Jantoven 2 Mg Tablet) 2 mg PO DAILY@1700 [facility] Last Admin: 01/18/20 17:08 Dose: 2 mg Documented by: STROKE Vital Signs/Narrative: Vital Signs Temp Pulse Resp BP Pulse Ox 01/19/20 14:55 63 01/19/20 13:56 97.8 F 66 18 98/54 L 94 Medical Necessity - Tobacco Use Smoking Status: Never smoker Assessment/Plan All Active Problems Anticoagulated on Coumadin (Acute) Abnormal cardiac enzyme level (Acute) Acute congestive heart failure with left ventricular diastolic dysfunction (Acute) Hypoxemia (Acute) Pleural effusion, right (Acute) The patient is a 74 year old M with history of chronic systolic and diastolic heart failure, EF 20% with severe left ventricular diastolic dysfunction valvular heart disease status post aortic and mitral valve replacement, last week admission for A. fib with RVR underwent MYRTLE but not cardioverted on amiodarone came to ED with shortness of breath that got worse for 1 day. 1. Acute on chronic combined heart failure status post AICD: Patient recently had echo on 01/12/2020 which showed EF 20%, LA moderately enlarged, stable Epting mechanical mitral valve and aortic valve apparatus. Moderate 2+ TR, RVSP 50 mmHg consistent with moderate pulmonary hypertension. Heart failure core measures including daily weight monitoring, strict intake and output, low-salt diet. Started on Lasix 40 mg IV twice daily. Patient already on carvedilol. Low-dose lisinopril 2.5 mg daily. Continue statin. Patient has bilateral pleural effusion, right more than left. Previous chest x-ray on 01/11 right lung base atelectasis with elevation of right hemidiaphragm and increased markings of right lung base and right upper lobe 01/18: Chest x-ray PA, lateral and decubitus view was individually reviewed. Shows decrease in the alveolar opacity and right lung effusion. Discussed with the radiologist and he agrees diuresis is working. Subjectively, patient feels improvement in shortness of breath about 80%. Electrolytes shows bicarb 34, BUN/creatinine 28/1.35 suggestive of good diuresis and achievement of dry weight. Patient also drop blood pressure in the 80s after Lasix 40 mg IV therefore Lasix changed to 40 mg daily oral. 2. Atypical chest pain, concern of unstable angina: First troponin elevated 0.199. During recent admission on 01/11 patient also had elevated troponin 0 0.35, 0.229, 0.322 therefore troponin has improved. Medical management for now. 01/18: Discussed with Dr. Hough. Overall serial troponins are flat next night and better than previous admission. Patient already had complete evaluation as TTE and MYRTLE during previous admission. 3. Valvular heart disease status post mitral valve replacement and aortic valve replacement with paroxysmal A. fib status post MYRTLE: MYRTLE was done on 01/13 reported no thrombus in left atrial appendage LA moderately enlarged, RA mildly enlarged. At that time patient was not cardioverted but started on amiodarone. Patient is spontaneously converted on amiodarone. ED EKG EKG shows sinus rhythm with left bundle branch block, LAD. Continue Coumadin. INR 2.8. Therapeutic 01/18: INR 3.2. Hold Coumadin today. 4. Chronic kidney disease stage III: BUN/creatinine is stable at 29/1.28. 5. Dyslipidemia: On statin 6. Recent COVID-19 infection about 6 weeks ago. Currently no cough. Recovered. Bilateral pleural effusion may be reactive to recent COVID-19 infection DvT prophylaxis: Already on Coumadin INR is therapeutic. CODE STATUS full as per last H&P. Laboratory Results 01/18/20 16:04: Troponin I 0.193 H 01/18/20 19:14: Troponin I 0.193 H 01/19/20 06:35: WBC 7.3, RBC 4.15 L, Hgb 12.3 L, Hct 38.4 L, MCV 92.5, MCH 29.6, MCHC 32.0, RDW Std Deviation 47.8 H, RDW Coeff of Patricia 14.2, Plt Count 306, MPV 10.4, Immature Gran % (Auto) 0.400, Neut % (Auto) 76.8 H, Lymph % (Auto) 8.0 L, Doddridge % (Auto) 11.6 H, Eos % (Auto) 2.6, Baso % (Auto) 0.6, Absolute Neuts (auto) 5.6, Absolute Lymphs (auto) 0.58 L, Nucleated RBC % 0, Differential Comment SCANNED 01/19/20 06:35: Sodium 137, Potassium 3.8, Chloride 98, Carbon Dioxide 34.0 H, Anion Gap 5, BUN 28 H, Creatinine 1.35 H, Estim Creat Clear Calc 35.51, Est GFR (MDRD) Af Amer 66, Est GFR (MDRD) Non-Af 55 L, BUN/Creatinine Ratio 20.7 H, Glucose 86, Calcium 9.0, Magnesium 2.2 01/19/20 06:35: B-Natriuretic Peptide 930.3 H 01/19/20 06:35: PT 32.3 H, INR 3.2 Clinical Impression(s) from Imaging Studies Chest X-Ray 01/18/20 08:20 IMPRESSION: Bilateral pneumonic infiltrates are identified which have increased. Chest CTA 01/18/20 09:20 IMPRESSION: 1. Normal CT pulmonary angiogram with no evidence of pulmonary embolism. 2. Congestive heart failure with large right lung base pleural effusion and a smaller left lung base pleural effusion. Chest X-Ray 01/19/20 12:07 IMPRESSION: 1. Mild bilateral alveolar infiltrates are identified which have significantly improved when compared with previous chest. 2. A moderate sized free right lung base pleural effusion is identified. Inpatient E&M: 96090 Subs Hosp L2
[2020-01-19] MEDS: Senna/Docusate Sodium 1 Tablet 2 TABLET PO (18:47)
[2020-01-19] MEDS: Pravastatin 40 MG Tablet PO (20:37)
[2020-01-19] MEDS: MELATONIN 3 MG TABLET PO (20:37)
--- NOTE | 2020-01-19 20:47 | NURSING ---
Pt requesting night meds now to try to sleep.
[2020-01-20 03:01] VITALS: PULSE 63
[2020-01-20 03:10] VITALS: BP 121/67; PULSE 60; RESP 16; TEMP 36.5; O2SAT 96
[2020-01-20 05:46] LABS: International Normalized Ratio 3.2; Prothrombin Time (Protime)PT. 32.1 SECONDS (11.7-14.9)
[2020-01-20] MEDS: Amiodarone 200 MG Tablet PO (05:47)
[2020-01-20 05:53] LABS: Anion Gap 4 (5-15); BUN 28 mg/dL (7-18); BUN/Creat Ratio 24.3 RATIO (10-20); Calcium,Total 8.5 mg/dL (8.5-10.1); Chloride 100 mmol/L (98-107); Creatinine, Serum 1.15 mg/dL (0.70-1.30); EST Glomerular Filtration Rate 66 mL/min (>60); Est Glom Filt Rate - Afr Amer 80 mL/min (>60); Estimated Creatinine Clearance 41.85 ml/min; Glucose 96 mg/dL (74-106); Magnesium 2.1 mg/dL (1.6-2.6); Phosphorus 3.1 mg/dL (2.5-4.9); Potassium 3.7 mmol/L (3.5-5.1); Sodium Level 139 mmol/L (136-145)
--- NOTE | 2020-01-20 05:55 | RAD_ITS ---
EXAM DESCRIPTION: PA and lateral chest CLINICAL HISTORY: 74 years Male, BILAT PLEURAL EFFUSIONS BILAT PLEURAL EFFUSIONS COMPARISON: Previous portable chest obtained on 01/19/2020 FINDINGS: A left cardiac pacemaker is noted in place. Sternotomy sutures are also seen. The rest of the thorax is intact. The heart contains a heart valve prosthesis and mediastinum appears to be within normal limits. The lungs show subsegmental atelectasis in the right midlung with a small right lung base pleural effusion which has decreased. RAD/Chest PA and Lateral IMPRESSION: Minimal subsegmental atelectasis in the right midlung with a small right lung base pleural effusion which is decreased. Electronically Signed: Lencho Keller, at 9:05 EST Tel , Service support ,
[2020-01-20 07:00] VITALS: PULSE 62
[2020-01-20 07:58] VITALS: BP 123/60; PULSE 65; RESP 18; TEMP 36.7; O2SAT 98
[2020-01-20] MEDS: Carvedilol 6.25 MG Tablet PO (08:04)
[2020-01-20] MEDS: Furosemide 40 MG Tablet PO (08:04)
[2020-01-20] MEDS: Aspirin 81 MG TAB.CHEW PO (08:04)
--- NOTE | 2020-01-20 09:00 | DCINST_ITS ---
- Discharge Diagnoses Current Active Problems: Current Active and Chronic Problems Atrial fibrillation with RVR (Chronic) Anticoagulated on Coumadin (Acute) S/P MVR (mitral valve replacement) (Chronic) S/P AVR (aortic valve replacement) (Chronic) Cardiomyopathy (Chronic) ICD (implantable cardioverter-defibrillator) in place (Chronic) Acute congestive heart failure with left ventricular diastolic dysfunction (Acute) Hypoxemia (Acute) Pleural effusion, right (Acute) You will use the following diet at home:: Cardiac Your food should be the consistency of: Regular Your liquids should be the consistency of: Regular/Thin Discharge Activity: May Not Drive - For 1 to 2 week until see his PCP Weight Bearing Status: Weight bearing as tolerated Call your doctor if you observe: Fever of 101 or Higher, Coldness, Increased Pain, Numbness or Tingling, Change in Color, Inability to urinate, Inability to have a bowel movement, Shortness of breath, Dizziness, Fainting spells, Swelling in the ankles, Chest pain, Prolonged hiccoughing, Increased palpitations (irregular heartbeat), Calf discomfort, Uncontrolled pain Allergies/Adverse Reactions: Allergies No Known Allergies Allergy (Verified 01/12/20 10:41) Medications to take at Discharge Aspirin [Aspirin, Baby] 81 mg PO DAILY@0800 01/12/20 Pravastatin [Pravachol] 40 mg PO DAILY 01/12/20 Warfarin [Coumadin] 2 mg PO DAILY #0 01/14/20 Amiodarone HCl [Cordarone] 200 mg PO TID #120 tab 01/20/20 Carvedilol [Coreg (Beta Baylee)] 12.5 mg PO BIDCM #120 tab 01/20/20 Furosemide [Lasix] 40 mg PO DAILY #30 tab 01/20/20 Lisinopril [Zestril] 2.5 mg PO DAILY #30 tab 01/20/20 Potassium Chloride [K-Dur] 20 meq PO DAILY #30 tab 01/20/20 busPIRone [Buspar] 5 mg PO BID #20 tab 01/20/20 The following prescriptions were given: busPIRone [Buspar] 5 mg PO BID #20 tab [facility]: [id number] Potassium Chloride [K-Dur] 20 meq PO DAILY #30 tab [facility]: [id number] Furosemide [Lasix] 40 mg PO DAILY #30 tab Transmission Status: Pending to [facility] Lisinopril [Zestril] 2.5 mg PO DAILY #30 tab [facility]: [facility] Primary Care Physician: Lawrence Cross MD [Primary Care Provider] - Please follow up with your Primary Care Physician in: Follow-up BMP in 1 week Test Results: Test results from this visit will be discussed in further detail at your follow- up appointment, if applicable. Please Follow Up With: Adelfo Catherine MD When: In 1 week
--- NOTE | 2020-01-20 09:23 | PCM.DC.SUM ---
Discharge Date and Diagnosis - Problem List Patient Problems: Active and Suspected Problems Anticoagulated on Coumadin (Acute) Acute congestive heart failure with left ventricular diastolic dysfunction (Acute) Hypoxemia (Acute) Pleural effusion, right (Acute) Date of Admission: 01/18/20 Date of Discharge: 01/20/20 - Primary Discharge Diagnosis Acute Problems: Active Problems Anticoagulated on Coumadin (Acute) Acute congestive heart failure with left ventricular diastolic dysfunction (Acute) Hypoxemia (Acute) Pleural effusion, right (Acute) - Secondary Discharge Diagnosis Chronic Problems: Chronic Problems Atrial fibrillation with RVR (Chronic) S/P MVR (mitral valve replacement) (Chronic) S/P AVR (aortic valve replacement) (Chronic) Cardiomyopathy (Chronic) ICD (implantable cardioverter-defibrillator) in place (Chronic) Renal insufficiency (Chronic) Hospital Course and Treatment Imaging Results: 01/20/20 05:55 Chest PA and Lateral [RAD] AM (NON MEDS) Operations: None Summary of Care Provided: The patient is a 74 year old M with history of chronic systolic and diastolic heart failure, EF 20% with severe left ventricular diastolic dysfunction valvular heart disease status post aortic and mitral valve replacement, last week admission for A. fib with RVR underwent MYRTLE but not cardioverted on amiodarone came to ED with shortness of breath that got worse for 1 day. 1. Acute on chronic combined heart failure status post AICD: Patient recently had echo on 01/12/2020 which showed EF 20%, LA moderately enlarged, stable mechanical mitral valve and aortic valve apparatus. Moderate 2+ TR, RVSP 50 mmHg consistent with moderate pulmonary hypertension. Patient was treated on heart failure core measures with Lasix 40 mg IV twice daily. Patient already on Coreg, statin, low-dose lisinopril 2.5 mg daily added. Initial chest x-ray shows bilateral pleural effusion, right more than left with slight elevation of right hemidiaphragm as compared to previous x-ray. Subsequent chest x-ray shows improvement in the right pleural effusion and was discussed with the radiologist. Patient could not tolerate Lasix 40 twice daily as he dropped blood patient was feeling dizzy therefore changed to 40 mg daily. BMP shows adequate achievement of dry weight, bicarb 35, BUN 28 and creatinine 1.15. Discharge medication discussed with the patient in direction to hold Coreg 12.5 mg if heart rate less than 60 or feeling dizzy. Follow-up with PCP in 1 week with repeat BMP. Prescription for lisinopril, furosemide and potassium supplement and BuSpar for anxiety given. 2. Atypical chest pain, concern of unstable angina: First troponin elevated 0.199. During recent admission on 01/11 patient also had elevated troponin 0 0.35, 0.229, 0.322 therefore troponin has improved. Overall serial troponins are flat and indeterminate and better than previous admission. Patient already had complete evaluation as TTE and MYRTLE during previous admission. 3. Valvular heart disease status post mitral valve replacement and aortic valve replacement with paroxysmal A. fib status post MYRTLE: MYRTLE was done on 01/13 reported no thrombus in left atrial appendage LA moderately enlarged, RA mildly enlarged. At that time patient was not cardioverted but started on amiodarone. Patient is spontaneously converted on amiodarone. ED EKG EKG shows sinus rhythm with left bundle branch block, LAD. INR 3.2 and Coumadin held. Patient was instructed to hold today. Patient tests his INR at home and follow with PCP to resume once INR is 3.0. 4. Chronic kidney disease stage III: BUN/creatinine is stable at 29/1.28. BUN/creatinine improved, 28/1.15. 5. Dyslipidemia: On statin 6. Recent COVID-19 infection about 6 weeks ago. Currently no cough. Recovered. Bilateral pleural effusion may be reactive to recent COVID-19 infection DvT prophylaxis: As mentioned above. Discharge medication reconciliation done. Discharge follow-up instructions completed. Discharge process discussed with the patient and all questions were answered to patient's satisfaction. Patient can be discharged home after adjustment of AICD. Patient does not have subjective feeling of palpitation or missed heartbeat. analytics intern reviewed and shows sinus rhythm. Total time spent, exact 35 minutes on discharge meds reconciliation, examination, coordination of care with nurses and ancillary staff, review of imaging and blood test and discussion with the patient on follow-up instructions [] Clinical Impression(s) from Imaging Studies Chest X-Ray 01/18/20 08:20 IMPRESSION: Bilateral pneumonic infiltrates are identified which have increased. Electronically Signed: Lencho Keller, at 9:08 EST Tel , Service support , Chest CTA 01/18/20 09:20 IMPRESSION: 1. Normal CT pulmonary angiogram with no evidence of pulmonary embolism. 2. Congestive heart failure with large right lung base pleural effusion and a smaller left lung base pleural effusion. Chest X-Ray 01/19/20 12:07 IMPRESSION: 1. Mild bilateral alveolar infiltrates are identified which have significantly improved when compared with previous chest. 2. A moderate sized free right lung base pleural effusion is identified. Chest X-Ray 01/20/20 05:55 IMPRESSION: Minimal subsegmental atelectasis in the right midlung with a small right lung base pleural effusion which is decreased. Patient Problems: Active and Suspected Problems Anticoagulated on Coumadin (Acute) Acute congestive heart failure with left ventricular diastolic dysfunction (Acute) Hypoxemia (Acute) Pleural effusion, right (Acute) Objective: Seen and examined. analytics intern shows sinus rhythm with PVCs and multiform PVCs. Patient was called by his [employer] defibrillator company that machine is about to shock therefore wait to adjust the setting. This was conveyed to me by charge nurse. Physical exam General: Alert, Oriented x3, Cooperative HEENT: Atraumatic, PERRLA, EOMI, Normocephalic Oral: No Gingival or Mucosal Lesions/ Ulcerations Neck: Supple, No JVD, Negative Carotid Bruits Lungs: No crepitation/rhonchi. Air entry much better and improved on bilateral lung bases. Mild diminished on the right lung base. Cardiovascular: Regular rate, Regular Rhythm, Normal S1, Normal S2, Mitral and aortic valve click with murmur present, holosystolic with radiation to axilla Abdomen: Bowel Sounds Present, Soft, Non Tender, Non-Distended : No renal angle tenderness. No suprapubic tenderness. Extremities: No ankle edema. Capillary Refill Less than 3 Seconds Skin: No rashes, No breakdown Musculoskeletal: No Tenderness to Palpation of Joints or Extremities Neurological: Cranial nerves II-XII grossly intact, Deep Tendon Reflexes 2+/4 and Symmetrical, Neuro grossly intact Psych/Mental Status: Normal Affect, Appropriate. - Physical Exam Vitals/I&O's: Vital Signs Temp Pulse Resp BP Pulse Ox 97.7 F L 60 16 121/67 H 96 01/20/20 03:10 01/20/20 03:10 01/20/20 03:10 01/20/20 03:10 01/20/20 03:10 Oxygen Flow Rate (L/min) 2 Oxygen Delivery Method Room Air Weight: 115 lb 11.883 oz Body Mass Index (BMI) 21.7 Intake and Output for Last 24 Hours 01/18/20 01/19/20 01/20/20 23:59 23:59 23:59 Intake Total 720 / 940 1180 / 1180 120 / 120 Output Total 1930 / 3330 1700 / 1700 Balance -1210 / -2390 -520 / -520 120 / 120 Laboratory Results 01/19/20 06:35: WBC 7.3, RBC 4.15 L, Hgb 12.3 L, Hct 38.4 L, MCV 92.5, MCH 29.6, MCHC 32.0, RDW Std Deviation 47.8 H, RDW Coeff of Patricia 14.2, Plt Count 306, MPV 10.4, Immature Gran % (Auto) 0.400, Neut % (Auto) 76.8 H, Lymph % (Auto) 8.0 L, [place] % (Auto) 11.6 H, Eos % (Auto) 2.6, Baso % (Auto) 0.6, Absolute Neuts (auto) 5.6, Absolute Lymphs (auto) 0.58 L, Nucleated RBC % 0, Differential Comment SCANNED 01/19/20 06:35: Sodium 137, Potassium 3.8, Chloride 98, Carbon Dioxide 34.0 H, Anion Gap 5, BUN 28 H, Creatinine 1.35 H, Estim Creat Clear Calc 35.51, Est GFR (MDRD) Af Amer 66, Est GFR (MDRD) Non-Af 55 L, BUN/Creatinine Ratio 20.7 H, Glucose 86, Calcium 9.0, Magnesium 2.2 01/19/20 06:35: B-Natriuretic Peptide 930.3 H 01/19/20 06:35: PT 32.3 H, INR 3.2 01/20/20 05:28: PT 32.1 H, INR 3.2 01/20/20 05:28: Sodium 139, Potassium 3.7, Chloride 100, Carbon Dioxide 35.0 H, Anion Gap 4 L, BUN 28 H, Creatinine 1.15, Estim Creat Clear Calc 41.85, Est GFR (MDRD) Af Amer 80, Est GFR (MDRD) Non-Af 66, BUN/Creatinine Ratio 24.3 H, Glucose 96, Calcium 8.5, Phosphorus 3.1, Magnesium 2.1 Current Medications Acetaminophen (Acetaminophen 325 Mg Tablet) 650 mg PO Q6H PRN PRN PRN Reason: Pain Score 1-10/Temp > 100.7 F Amiodarone HCl (Amiodarone 200 Mg Tablet) 200 mg PO TID [facility] Stop: 01/21/20 22:01 Last Admin: 01/20/20 05:47 Dose: 200 mg Documented by: Amiodarone HCl (Amiodarone 200 Mg Tablet) 200 mg PO BID [facility] Stop: 02/04/20 22:01 Amiodarone HCl (Amiodarone 200 Mg Tablet) 200 mg PO DAILY [facility] Aspirin (Aspirin 81 Mg Tab.Chew) 81 mg PO DAILY@0800 [facility] Last Admin: 01/19/20 08:23 Dose: 81 mg Documented by: Carvedilol (Carvedilol 6.25 Mg Tablet) 6.25 mg PO BIDCM [facility] Last Admin: 01/19/20 16:55 Dose: Not Given Documented by: Furosemide (Furosemide 40 Mg Tablet) 40 mg PO DAILY [facility] Sodium Chloride () 250 mls @ 15 mls/hr IV .[id number] PRN PRN Reason: Saline Flush Sodium Chloride () 250 mls @ 15 mls/hr IV .[id number] PRN PRN Reason: Additional IVPB Infusion Lisinopril (Lisinopril 2.5 Mg Tablet) 2.5 mg PO DAILY [facility] Melatonin (Melatonin 3 Mg Tablet) 3 mg PO QHS [facility] Last Admin: 01/19/20 20:37 Dose: 3 mg Documented by: Morphine Sulfate (Morphine 2 Mg/Ml Syringe) 2 mg IV Q3H PRN PRN PRN Reason: Pain Score 6-10 Nitroglycerin (Nitroglycerin (Inpatient Use) 0.4 Mg Tab.Subl) 0.4 mg SUBLINGUAL Q5M PRN PRN Reason: CARDIAC/CHEST PAIN Oxycodone HCl (Oxycodone 5 Mg Tablet) 5 mg PO Q4H PRN PRN PRN Reason: Pain Score 4-5 Pravastatin Sodium (Pravastatin 40 Mg Tablet) 40 mg PO QHS [facility] Last Admin: 01/19/20 20:37 Dose: 40 mg Documented by: Senna/Docusate Sodium (Senna/Docusate Sodium 1 Tablet) 2 tablet PO BID PRN PRN PRN Reason: Constipation Last Admin: 01/19/20 18:47 Dose: 2 tablet Documented by: Sodium Chloride (0.9% Saline Lock 10 Ml Syringe) 10 - 40 ml IV UD PRN PRN Reason: SALINE FLUSH Last Admin: 01/19/20 08:23 Dose: 10 ml Documented by: Warfarin Sodium (Jantoven 2 Mg Tablet) 2 mg PO DAILY@1700 [facility] Last Admin: 01/18/20 17:08 Dose: 2 mg Documented by: Discharge Activity: May Not Drive - For 1 to 2 week until see his PCP Weight Bearing Status: Weight bearing as tolerated Call your doctor if you observe: Fever of 101 or Higher, Coldness, Increased Pain, Numbness or Tingling, Change in Color, Inability to urinate, Inability to have a bowel movement, Shortness of breath, Dizziness, Fainting spells, Swelling in the ankles, Chest pain, Prolonged hiccoughing, Increased palpitations (irregular heartbeat), Calf discomfort, Uncontrolled pain Home Medications: Medications to take at Discharge Aspirin [Aspirin, Baby] 81 mg PO DAILY@0800 01/12/20 Pravastatin [Pravachol] 40 mg PO DAILY 01/12/20 Warfarin [Coumadin] 2 mg PO DAILY #0 01/14/20 Amiodarone HCl [Cordarone] 200 mg PO TID #120 tab 01/20/20 Carvedilol [Coreg (Beta Baylee)] 12.5 mg PO BIDCM #120 tab 01/20/20 Furosemide [Lasix] 40 mg PO DAILY #30 tab 01/20/20 Lisinopril [Zestril] 2.5 mg PO DAILY #30 tab 01/20/20 Potassium Chloride [K-Dur] 20 meq PO DAILY #30 tab 01/20/20 busPIRone [Buspar] 5 mg PO BID #20 tab 01/20/20 Following Prescriptions Were Given to Patient: busPIRone [Buspar] 5 mg PO BID #20 tab Transmission Status: Received by [id number] Potassium Chloride [K-Dur] 20 meq PO DAILY #30 tab Transmission Status: Received by [id number] Furosemide [Lasix] 40 mg PO DAILY #30 tab Transmission Status: Received by [id number] Lisinopril [Zestril] 2.5 mg PO DAILY #30 tab Transmission Status: Received by [id number] Primary Care Physician: Lawrence Cross MD [Primary Care Provider] - Please follow up with your Primary Care Physician in: Follow-up BMP in 1 week Please Follow Up With: Adelfo Catherine MD When: In 1 week Medical Necessity - Tobacco Use Smoking Status: Never smoker Meaningful Use Info Meaningful Use Diagnoses (Choose all that apply): CHF - CHF LEEANN/ARB ordered at discharge?: Yes Documented LVEF (%): 20 Inpatient E&M: 63055 Disch Hosp
--- NOTE | 2020-01-20 09:51 | CASEMGMT ---
BARRIE SERRANO NOTE: Discharge order is in. BARRIE CM to room to discuss any discharge planning needs/concerns. Pt states he does not have any needs/concerns. PT/OT notes have been reviewed and no additional therapy recommended. Pt denies any need for HHC or OP therapy. Pt states he checks his INR @ home and that Dr Cross was following him for this, but he states Dr Catherine is now going to be managing this. Scripts have been e-scribed to [facility]. Pt states his will be picking him up this morning to take him home and she will be picking up his prescriptions @ [facility]. Dwayne LOVE RN CM
--- NOTE | 2020-01-20 10:47 | PHA.DC.MC ---
Pharmacy Service has performed discharge medication reconciliation and counseling for this patient. 1. LISINOPRIL 2.5MG PO DAILY 2. FUROSEMIDE 40MG PO DAILY 3. POTASSIUM CHLORIDE 20MEQ PO DAILY 4. BUSPIRONE 5MG PO BID Patient's INR is 3.[address] Hernandez if warfarin should be held. Patient is supposed to hold tonight's dose and check with Dr. Catherine's office on when the next INR should be checked. Last dose of Amiodarone TID is tomorrow, then start BID on Saturday. The patient's discharge medication list was reviewed for discrepancies and discrepancies were resolved. Home Medications Aspirin [Aspirin, Baby] 81 mg PO DAILY@0800 01/12/20 Pravastatin [Pravachol] 40 mg PO DAILY 01/12/20 Warfarin [Coumadin] 2 mg PO DAILY #0 01/14/20 Amiodarone HCl [Cordarone] 200 mg PO TID #120 tab 01/20/20 Carvedilol [Coreg (Beta Baylee)] 12.5 mg PO BIDCM #120 tab 01/20/20 Furosemide [Lasix] 40 mg PO DAILY #30 tab 01/20/20 Lisinopril [Zestril] 2.5 mg PO DAILY #30 tab 01/20/20 Potassium Chloride [K-Dur] 20 meq PO DAILY #30 tab 01/20/20 busPIRone [Buspar] 5 mg PO BID #20 tab 01/20/20 The patient was counseled on the following discharge medications and changes in medications for homegoing were reviewed. The Reason for Use, instructions for use, and potential side effects were reviewed for all new medications. The patient's questions regarding all of their medications were answered. The patient was able to verbally demonstrate an understanding of their discharge medications.
[2020-01-20] MEDS: Lisinopril 2.5 MG Tablet PO (12:43)
--- NOTE | 2020-01-22 16:33 | CASEMGMT ---
BARRIE SERRANO Discharge Follow-Up Phone Call. Lace: 11 Strata: 3 Discharge Date: 01/20/20 Adm Dx: Acute CHF, hypoxia. Attempted discharge follow-up phone call. No answer. VM left for pt to return call if he has any questions/concerns/needs. Phone number provided. Dwayne LOVE RN CM
== END 2020-01-20 12:58 | disposition home or self-care (01) | DRG 291 ==
LOC: ED 09:36 → PCU 14:21
PROVIDERS: Admitting Provider Internal Medicine; Emergency Provider Emergency Medicine; PCP Family Medicine; Visit Provider Internal Medicine
DX: I13.0 Hypertensive heart and chronic kidney disease with heart failure and stage 1 through stage 4 chronic kidney disease, or unspecified chronic kidney disease (principal); I50.43 Acute on chronic combined systolic (congestive) and diastolic (congestive) heart failure; N18.30 Chronic kidney disease, stage 3 unspecified; I20.0 Unstable angina; I42.9 Cardiomyopathy, unspecified; R09.02 Hypoxemia; I48.0 Paroxysmal atrial fibrillation; I27.20 Pulmonary hypertension, unspecified; E78.5 Hyperlipidemia, unspecified; Z79.01 Long term (current) use of anticoagulants; Z79.82 Long term (current) use of aspirin; Z79.899 Other long term (current) drug therapy; Z86.19 Personal history of other infectious and parasitic diseases; Z87.891 Personal history of nicotine dependence; Z95.810 Presence of automatic (implantable) cardiac defibrillator; Z95.2 Presence of prosthetic heart valve
CPT/HCPCS: 36415; 71045; 71046; 71048; 71275; 80048; 80053; 83605; 83735; 83880; 84100; 84484; 85025; 85610; 85730; 93005; 99251; 99285; Q9967; A4216; G0463; J1940

== ENCOUNTER 2020-01-27 12:58 | Emergency (ER) | payer BC, MEDICARE, SELFPAY ==
[2020-01-18 12:21] VITALS: BMI 21.7
[2020-01-27 12:59] VITALS: BP 130/81; PULSE 64; RESP 17; TEMP 35.9; O2SAT 99; BMI 20.8
--- NOTE | 2020-01-27 13:08 | EKG12_ITS ---
Test Reason : PALPITATIONS Blood Pressure : / mmHG Vent. Rate : 063 BPM Atrial Rate : 063 BPM P-R Int : 210 ms QRS Dur : 178 ms QT Int : 500 ms P-R-T Axes : 083 -56 124 degrees QTc Int : 511 ms Sinus rhythm with 1st degree A-V block with occasional Premature ventricular complexes Left axis deviation Non-specific intra-ventricular conduction block Cannot rule out Anterior infarct , age undetermined Abnormal ECG Confirmed by VALERIA IRIZARRY, TAMI ([id number]), assignment desk editor DELONTE LEON ([id number]) on 01/29/2020 2:01:13 PM Referred By: YOLANDE/NIKUNJ Confirmed By:ANUP SHAW MD
--- NOTE | 2020-01-27 13:13 | ED.VIS.GEN ---
History of Present Illness Chief Complaint: Palpitations Informant: Patient Onset: Hours Context: Sudden Onset Timing: Intermittent Quality: Heart racing Location: Chest Current Severity: Moderate Maximum Severity: Moderate Worsened by: Nothing Relieved by: Nothing Associated Symptoms: No associated symptoms Narrative: Patient is an elderly male with recent admission for acute congestive heart failure with left ventricular diastolic dysfunction, hypoxia, acute right pleural effusion who was started on Coumadin. Patient does have history of atrial fibrillation with RVR. He presently is complaining of his heart racing. He denies chest pain. Denies dyspnea or dyspnea exertion. Denies orthopnea PND. Denies leg pain, swelling discoloration. He denies nausea, vomiting or black or maroon-colored stool. He denies paresthesia, anesthesia or motor weakness. He denies orthostatic symptoms. He denies ocular, visual auditory symptoms. He denies headache. His only complaint is heart racing . Prior similar symptoms: Yes Recent Illness/Hospitalization: Yes - Past Medical History (1) Acute congestive heart failure with left ventricular diastolic dysfunction Status: Acute (2) Anticoagulated on Coumadin Status: Acute (3) Atrial fibrillation with RVR Status: Chronic (4) Cardiomyopathy Status: Chronic (5) ICD (implantable cardioverter-defibrillator) in place Status: Chronic (6) Renal insufficiency Status: Chronic (7) S/P AVR (aortic valve replacement) Status: Chronic (8) S/P MVR (mitral valve replacement) Status: Chronic Past Medical History - Allergies and Home Meds Allergies/Adverse Reactions: Allergies No Known Allergies Allergy (Verified 01/27/20 12:59) Primary Care Physician: Lawrence Cross MD [Primary Care Provider] - Prior records reviewed: Yes Surgical History: - - Aortic and mitral valve replacements, pacemaker insertion Lives: Spouse/ Significant Other Smoking Status: Never smoker Alcohol: None Drugs: None - Family History Maternal Family History: Reports: No pertinent history Paternal Family History: Reports: No pertinent history Sibling Family History: Reports: Heart Disease Review of Systems General: Denies: Chills, Fever, Malaise, Sweats Eyes: Denies: Visual changes - bilaterally, Blurred Vision - bilaterally, Diplopia ENT: Denies: Bilateral ear pain, Rhinorrhea, Sore throat Cardiovascular: Reports: Palpitations, Heart racing. Denies: Chest pain Respiratory: Denies: Dyspnea, Cough, Dyspnea on exertion Gastrointestinal: Denies: Abdominal pain, Nausea, Vomiting, Diarrhea, Melena, Hematochezia Genitourinary: Denies: Dysuria, Hematuria, Frequency Musculoskeletal: Denies: Myalgias, Arthralgias, Neck pain, Back pain, Swelling, Extremity Pain Skin: Denies: Rash, Wounds Neurological: Denies: Headache, Weakness, Parasthesia, Numbness Hematologic: Reports: Easy bruising Allergy: Denies: Uticaria, Swelling of the mouth, Swelling of the tongue Physical Exam Vital Signs/Narrative: Vital Signs Temp Pulse Resp BP Pulse Ox 01/27/20 12:59 96.7 F L 64 17 130/81 H 99 Inital Vital Signs reviewed: Yes General: Well nourished, Well developed, No Acute Distress Head: Normocephalic, Atraumatic Eyes: Perrl, EOMI ENT: Moist mucous membranes, No rhinorrhea Neck: Supple, Nontender Cardiovascular: Regular rate, Regular rhythm, No murmurs, - - Click of S1 and S2 noted consistent with prosthetic valve Respiratory: No distress, CTA bilaterally, Chest nontender Abdomen: Soft, Nontender, Nondistended, Normal bowel sounds, No masses Back: Nontender, Normal Inspection. Negative for: CVA tenderness Extremities: Nontender, No edema Skin: Normal color, No rash, No Trauma. Negative for: Cyanosis, Diaphoresis, Jaundice Neurological: Alert, Oriented x3, Cranial nerves II-XII grossly intact, Normal Strength, Normal Sensation Psychological: Normal affect, Normal Mood Diagnostic/Tx/Re-eval - EKG Initial EKG Interpretation: Sinus Rhythm - Sinus rhythm with a first-degree AV block and premature ventricular beats noted. Ventricular rate 63. CT interval 210 ms. QRS duration 178 ms. Patient has a nonspecific intraventricular conduction delay. QT interval is 500 ms. The axis is to the left. - Medical Decision Making Since patient's only complaint is racing heart rate and his EKG does not reveal racing heart rate will place on a monitor to determine if he is intermittently having symptoms. Since he was discharged less than a week ago and had extensive work-up blood work was not repeated. Patient has been observed for over 1 hour. He had no dysrhythmia. There is been an occasional ectopic beat. Since he has no tachycardia or dysrhythmia in spite of persistent symptoms will discharge to home. ED Disposition - Plan for ED Patient: Disposition: Home or Assisted Living Diagnosis: Palpitations with regular cardiac rhythm Instructions: ED Palpitations Referrals: Lawrence Cross MD [Primary Care Provider] - Adelfo Catherine MD [STAFF PHYSICIAN] - As Needed
[2020-01-27 13:15] VITALS: PULSE 63
== END 2020-01-27 14:20 | disposition home or self-care (01) ==
PROVIDERS: Emergency Provider Emergency Medicine; PCP Family Medicine
DX: I49.3 Ventricular premature depolarization (principal); I50.32 Chronic diastolic (congestive) heart failure; I48.91 Unspecified atrial fibrillation; N18.9 Chronic kidney disease, unspecified; I42.9 Cardiomyopathy, unspecified; Z79.01 Long term (current) use of anticoagulants; Z79.82 Long term (current) use of aspirin; Z79.899 Other long term (current) drug therapy; Z95.2 Presence of prosthetic heart valve; Z95.810 Presence of automatic (implantable) cardiac defibrillator
CPT/HCPCS: 93005; 99283

== ENCOUNTER → 2020-01-28 15:17 | Outpatient (CLI) | payer BC, MEDICARE, SELFPAY ==
[2020-01-28 14:27] VITALS: BMI 21.2
[2020-01-28 15:44] LABS: Absolute Neutrophil Count 5.5 X10^3/uL (2.0-7.7); Basophil# 0.07 X10^3/uL; Eosinophil# 0.14 X10^3/uL; Eosinophils% 1.9 % (0-5); Hematocrit 39.9 % (40-54); Lymphocyte % 10.9 % (19-41); Mean Corp Hgb Conc 32.6 g/dL (32-36); Mean Corpuscular Hgb 29.5 pg (27.0-32.0); Mean Corpuscular Volume 90.7 fL (80-94); Monocyte# 0.85 X10^3/uL; Monocyte% 11.5 % (0-10); NRBC Flagged by Analyzer 0 % (0-5); Neutrophil # 5.48 X10^3/uL (2.7-7.7); Neutrophil % 74.4 % (47-70); Platelet Count 335 K/mm3 (150-450); RBC Distribution Width CV 13.6 % (11.6-14.6); RBC Distribution Width SD 45.2 fl (35.1-43.9); White Blood Count 7.4 K/mm3 (4.4-11.0)
[2020-01-28 15:49] LABS: International Normalized Ratio 3.4; Prothrombin Time (Protime)PT. 33.8 SECONDS (11.7-14.9)
[2020-01-28 16:20] LABS: Anion Gap 3 (5-15); BUN 46 mg/dL (7-18); BUN/Creat Ratio 31.5 RATIO (10-20); Calcium,Total 8.6 mg/dL (8.5-10.1); Chloride 99 mmol/L (98-107); Creatinine, Serum 1.46 mg/dL (0.70-1.30); EST Glomerular Filtration Rate 50 mL/min (>60); Est Glom Filt Rate - Afr Amer 61 mL/min (>60); Glucose 104 mg/dL (74-106); Magnesium 2.4 mg/dL (1.6-2.6); Potassium 4.8 mmol/L (3.5-5.1); Sodium Level 135 mmol/L (136-145); Thyroid Stim Hormone (TSH) 0.72 uIU/mL (0.358-3.74)
== END ==
PROVIDERS: Internal Medicine Cardiovascular Disease; PCP Family Medicine; Referring Provider Physician Assistant Medical; Visit Provider Physician Assistant Medical
DX: I48.91 Unspecified atrial fibrillation (principal); I50.31 Acute diastolic (congestive) heart failure; I42.9 Cardiomyopathy, unspecified; Z95.810 Presence of automatic (implantable) cardiac defibrillator; Z95.2 Presence of prosthetic heart valve
CPT/HCPCS: 36415; 80048; 83735; 84443; 85025; 85610

== ENCOUNTER → 2020-06-09 13:40 | Outpatient (CLI) | payer MEDICARE, SELFPAY ==
[2020-06-09 13:04] VITALS: BMI 21.4
[2020-06-09 16:03] LABS: Anion Gap 3 (5-15); BUN 38 mg/dL (7-18); BUN/Creat Ratio 26.4 RATIO (10-20); Calcium,Total 8.8 mg/dL (8.5-10.1); Chloride 103 mmol/L (98-107); Creatinine, Serum 1.44 mg/dL (0.70-1.30); EST Glomerular Filtration Rate 51 mL/min (>60); Est Glom Filt Rate - Afr Amer 62 mL/min (>60); Glucose 102 mg/dL (74-106); Potassium 4.2 mmol/L (3.5-5.1); Sodium Level 140 mmol/L (136-145)
== END ==
PROVIDERS: PCP Family Medicine; Referring Provider Physician Assistant Medical; Visit Provider Physician Assistant Medical
DX: I42.9 Cardiomyopathy, unspecified (principal); I48.91 Unspecified atrial fibrillation; Z95.2 Presence of prosthetic heart valve
CPT/HCPCS: 36415; 80048

== ENCOUNTER 2020-07-25 09:47 | Inpatient (IN) | payer MEDICARE, SELFPAY ==
[2020-06-09 13:04] VITALS: BMI 21.4
[2020-07-25] VITALS (27 sets, daily range): BP systolic 97–153; BP diastolic 62–98; PULSE 82–150; RESP 14–26; TEMP 36.2–37.1; O2SAT 91–100; BMI 21.9
--- NOTE | 2020-07-25 09:53 | ED.RN ---
PT HEART RATE SPIKES IN TRIAGE TO 160. PT TO ROOM 1
--- NOTE | 2020-07-25 10:00 | EKG12_ITS ---
Test Reason : REPEAT Blood Pressure : / mmHG Vent. Rate : 099 BPM Atrial Rate : 100 BPM P-R Int : 064 ms QRS Dur : 190 ms QT Int : 464 ms P-R-T Axes : 000 -51 137 degrees QTc Int : 595 ms Sinus rhythm with short ND Left axis deviation Left bundle branch block Abnormal ECG Confirmed by ZULY IRIZARRY, SAKINA ([id number]), commercial production editor ARY COLE ([id number]) on 07/27/2020 12:52:26 PM Referred By: CL Confirmed By:SAKINA CARUSO MD
--- NOTE | 2020-07-25 10:00 | RAD_ITS ---
STUDY: X-RAY CHEST REASON FOR EXAM: Male, 74 years old. Chest pain TECHNIQUE: Single AP portable view of the chest. COMPARISON: 01/20/2020 FINDINGS: EKG leads overlie the chest. Stable appearance of a left subclavian pacemaker There are interstitial changes of the lungs. There is no demonstrated pleural abnormality. Sternal cerclage wires are present from a prior sternotomy and valve replacement. Normal mediastinum and aprth. Normal visualized pulmonary arteries. Normal visualized aortic arch and descending thoracic aorta. There are diffuse degenerative changes of the visualized thoracic spine. Normal visualized ribs, clavicles, and shoulders. There is no demonstrated abnormality of the visualized soft tissue structures of the upper abdomen. RAD/Chest 1 View (Portable) IMPRESSION: No acute pulmonary process Electronically Signed: Gabriel Sousa MD at 10:49 EDT , Service support ,
--- NOTE | 2020-07-25 10:05 | ED.RN ---
pt coughed and converTed to ST with heart rate of 102.
--- NOTE | 2020-07-25 10:05 | EDS_ITS ---
HPI History of Present Illness Chief Complaint: Shortness of Breath Informant: patient Narrative Narrative: Patient is a 74-year-old male with a past medical history of cardiomyopathy, A. fib on Coumadin, CHF who presents to the emergency department for epigastric discomfort. He states that this been going on for the past 3 or 4 days. He denies any significant chest pain He has had this before in the past but resolved on its own. He denies any recent illness including fever/chills or cough. On arrival to the emergency department patient does in a wide-complex tachycardia. His blood pressure is stable. Patient is resting comfortably.. He rates the epigastric pain is a 4 out of 10 currently. He has been feeling mildly short of breath since the onset of symptoms. [facility] Medical History (Updated 07/25/20 @ 16:[address] Drew Escalera DO) Atrial fibrillation with [facility]VR [facility] current use of anticoagulant Home Medications warfarin 2 mg PO SUTUWETHSA 01/27/20 [History Last Taken Unknown] amiodarone 200 mg tablet 200 mg PO DAILY #90 tab 04/20/20 [Rx Last Taken Unknown] carvedilol 12.5 mg tablet 6.25 mg PO BID #180 tab 04/20/20 [Rx Last Taken Unknown] furosemide 40 mg tablet 40 mg PO DAILY #90 tab 04/20/20 [Rx Last Taken Unknown] sacubitril 24 mg-valsartan 26 mg tablet 1 tablet PO BID #60 tablet 06/13/20 [Rx Last Taken Unknown] potassium chloride 20 meq PO DAILY 07/25/20 [History Last Taken Unknown] warfarin 1 mg PO MOFR 07/25/20 [History Last Taken Unknown] Allergy/AdvReac Type Severity Reaction Status Date / Time No Known Allergies Allergy Verified 07/25/20 09:50 Social History Smoking Status: Never smoker ROS ROS ED Constitutional Constitutional ED: Denies chills or fever(s) Eyes Eyes: Denies change in vision ENT ENT ED: Denies epistaxis or rhinorrhea Cardiovascular Cardiovascular: Denies chest pain or palpitations Respiratory/Chest Respiratory/Chest: Reports dyspnea; Denies cough Gastrointestinal Gastrointestinal: Reports abdominal pain; Denies diarrhea, nausea or vomiting Genitourinary Genitourinary ED: Denies dysuria, hematuria or urinary frequency Musculoskeletal Musculoskeletal: Denies back pain or neck pain Integumentary Denies rash Neurologic Neurologic: Denies dizziness, headache(s) or weakness EXAM Physical Exam Const Vital Signs: 07/25/20 09:48 07/25/20 10:00 07/25/20 10:01 Temperature 98 F Temperature Source Temporal Pulse Rate 101 H 150 H Pulse Rate [1 (Initial Baseline)] Respiratory Rate 18 20 H Respiratory Rate [1 (Initial Baseline)] Respiratory Pattern Blood Pressure 119/77 136/98 H Blood Pressure [1 (Initial Baseline)] Blood Pressure Mean 91 110 Pulse Ox 98 96 Oxygen Delivery Method Room Air Nasal Cannula Oxygen Delivery Method [1 (Initial Baseline)] Oxygen Flow Rate (L/min) 2 Oxygen Flow Rate (L/min) [1 (Initial Baseline)] 07/25/20 10:05 07/25/20 10:24 07/25/20 10:26 Temperature 98.7 F Temperature Source Oral Pulse Rate 99 98 Pulse Rate [1 (Initial Baseline)] Respiratory Rate 16 20 H Respiratory Rate [1 (Initial Baseline)] Respiratory Pattern Normal Blood Pressure 134/97 H 131/84 H Blood Pressure [1 (Initial Baseline)] Blood Pressure Mean 109 99 Pulse Ox 100 100 Oxygen Delivery Method Nasal Cannula Nasal Cannula Oxygen Delivery Method [1 (Initial Baseline)] Oxygen Flow Rate (L/min) 2 2 Oxygen Flow Rate (L/min) [1 (Initial Baseline)] 07/25/20 11:29 07/25/20 11:30 07/25/20 11:35 Temperature Temperature Source Pulse Rate 98 98 97 Pulse Rate [1 (Initial Baseline)] 143 H Respiratory Rate 20 H 20 H 14 Respiratory Rate [1 (Initial Baseline)] 16 Respiratory Pattern Blood Pressure 129/96 H 131/72 H 97/62 Blood Pressure [1 (Initial Baseline)] 129/96 H Blood Pressure Mean 107 Pulse Ox 100 98 99 Oxygen Delivery Method Nasal Cannula Airvo Oxygen Delivery Method [1 (Initial Baseline)] Nasal Cannula Oxygen Flow Rate (L/min) 2 Oxygen Flow Rate (L/min) [1 (Initial Baseline)] 2 07/25/20 11:43 Temperature Temperature Source Pulse Rate 98 Pulse Rate [1 (Initial Baseline)] Respiratory Rate 16 Respiratory Rate [1 (Initial Baseline)] Respiratory Pattern Blood Pressure 119/71 Blood Pressure [1 (Initial Baseline)] Blood Pressure Mean Pulse Ox 100 Oxygen Delivery Method Nasal Cannula Oxygen Delivery Method [1 (Initial Baseline)] Oxygen Flow Rate (L/min) 2 Oxygen Flow Rate (L/min) [1 (Initial Baseline)] Positive well nourished and well developed General Appearance ED: well developed and NAD HEENT Reports normocephalic, head/scalp atraumatic and moist mucous membranes Eyes PERRL and EOMs intact bilaterally Neck no lymphadenopathy and supple General: Negative for tenderness Chest Wall inspection of chest normal Resp normal respiratory effort and clear to auscultation bilaterally Auscultation: Negative for rales, rhonchi or wheezes Cardio no murmurs Rate: tachycardic GI normal to inspection, nondistended, normoactive bowel sounds and non-tender Palpation: soft; Negative for guarding or rebound tenderness present Extremity normal to inspection General Extremety ED: Negative for edema or tenderness General Extremity: Negative for edema Neuro oriented x3, CN's II-XII intact bilaterally and no sensory deficits noted Sensorium / Orientation: alert Motor Exam: strength 5/5 throughout Psych mental status grossly normal Skin no rashes or lesions noted MDM MDM MDM Narrative Medical decision making narrative: Patient presents to the ED for epigastric discomfort. Upon arrival to the emergency department he is in no acute distress. He is tachycardic. EKG was obtained upon arrival which showed a wide-complex tachycardia. Cardiology was consulted and Dr. Hough came to department to help evaluate and manage the patient. Lab work is being sent. He is started on a 150mg amiodarone bolus. Patient did convert out of the ventricular tachycardia. He is having some brief runs of nonsustained V. tach after this. Patient then had another episode of V. tach were this was sustained. Did have a discussion with cardioverting the patient. This was per cardiology's recommendation. Patient was consented. We actually gave a dose of propofol and patient converted out of V. tach into a normal sinus rhythm prior to doing the electrical cardioversion. Patient's troponin is mildly elevated. Repeat EKG was discussed with on-call stewarding supervisor. Patient will be admitted for further evaluation and management. He is on amiodarone infusion. He otherwise has been stable with his blood pressure and pulse oximetry. Lab Data Labs: Laboratory Results - last 24 hr 07/25/20 07/25/20 07/25/20 10:12 10:12 10:12 WBC 8.9 RBC 3.90 L Hgb 11.6 L Hct 36.5 L MCV 93.6 MCH 29.7 MCHC 31.8 L RDW Std Deviation 46.3 H RDW Coeff of Patricia 13.9 Plt Count 230 MPV 10.3 Immature Gran % (Auto) 0.300 Neut % (Auto) 80.2 H Lymph % (Auto) 5.8 L [place] % (Auto) 12.3 H Eos % (Auto) 1.1 Baso % (Auto) 0.3 Absolute Neuts (auto) 7.2 Absolute Lymphs (auto) 0.52 L Nucleated RBC % 0 Hypochromasia 1+ PT 30.6 H INR 3.0 Sodium 137 Potassium 3.9 Chloride 100 Carbon Dioxide 31.0 Anion Gap 6 BUN 36 H Creatinine 1.46 H Estim Creat Clear Calc 34.17 Est GFR (MDRD) Af Amer 61 Est GFR (MDRD) Non-Af 50 L BUN/Creatinine Ratio 24.7 H Glucose 114 H Calcium 9.2 Phosphorus Magnesium Troponin I 0.536 H B-Natriuretic Peptide 07/25/20 07/25/20 10:12 10:12 WBC RBC Hgb Hct MCV MCH MCHC RDW Std Deviation RDW Coeff of Patricia Plt Count MPV Immature Gran % (Auto) Neut % (Auto) Lymph % (Auto) [place] % (Auto) Eos % (Auto) Baso % (Auto) Absolute Neuts (auto) Absolute Lymphs (auto) Nucleated RBC % Hypochromasia PT INR Sodium Potassium Chloride Carbon Dioxide Anion Gap BUN Creatinine Estim Creat Clear Calc Est GFR (MDRD) Af Amer Est GFR (MDRD) Non-Af BUN/Creatinine Ratio Glucose Calcium Phosphorus 3.0 Magnesium 2.1 Troponin I B-Natriuretic Peptide 2118.2 H Radiography Diagnostic Testing: Radiology Impression Chest X-Ray 07/25/20 10:00 IMPRESSION: No acute pulmonary process Electronically Signed: Gabriel Sousa MD at 10:49 EDT , Service support , EKG Initial EKG: Attestation: I personally reviewed and interpreted this EKG as follows: (Rate of 150 bpm and a wide-complex tachycardia.) Follow-up EKG: Comments: Rate of 99 bpm and a sinus rhythm. Prolonged QRS of 190 with left ventricular hypertrophy, left axis deviation. There are ST depressions in the lateral leads. Reviewing his previous EKG on January 27, 2020 this does have a similar appearance. There are some ST elevations which do appear mildly worse compared to the previous. Critical Care Time Critical Care Time: Yes Critical care time (excluding procedures): 30-74 minutes, Discussing w/Consultants, Arranging Admission or Transfer and Performing Direct Patient Care at Bedside Discharge Plan Dx/Rx/DC Orders Clinical Impression: Ventricular tachycardia Disposition Disposition: Acute Care Hospital [facility] Discharge Date/Time: 07/25/20 12:30
[2020-07-25 10:20] LABS: Absolute Lymphocyte Count 0.52 X10^3/uL (0.83-4.51); Absolute Neutrophil Count 7.2 X10^3/uL (2.0-7.7); Basophil# 0.03 X10^3/uL; Basophil% 0.3 % (0-1); Eosinophils% 1.1 % (0-5); Hematocrit 36.5 % (40-54); Hemoglobin 11.6 g/dL (13.0-16.5); Lymphocyte # 0.52 X10^3/ul (0.83-4.51); Lymphocyte % 5.8 % (19-41); Mean Corp Hgb Conc 31.8 g/dL (32-36); Mean Corpuscular Hgb 29.7 pg (27.0-32.0); Mean Corpuscular Volume 93.6 fL (80-94); Mean Platelet Vol. 10.3 fl (6.2-12.0); Monocyte% 12.3 % (0-10); NRBC Flagged by Analyzer 0 % (0-5); Neutrophil # 7.15 X10^3/uL (2.7-7.7); Neutrophil % 80.2 % (47-70); POSITIVE DIFFERENTIAL YES; Platelet Count 230 K/mm3 (150-450); RBC Distribution Width CV 13.9 % (11.6-14.6); RBC Distribution Width SD 46.3 fl (35.1-43.9); White Blood Count 8.9 K/mm3 (4.4-11.0)
[2020-07-25 10:22] LABS: Differential Indicated SCAN CRITERIA MET
--- NOTE | 2020-07-25 10:30 | ED.RN ---
pt had run vt, pt responsive became a little more pale and didnt feel right. then converted within 5-10 seconds
[2020-07-25 10:32] LABS: Prothrombin Time (Protime)PT. 30.6 SECONDS (11.7-14.9)
[2020-07-25 10:40] LABS: Anion Gap 6 (5-15); BUN 36 mg/dL (7-18); BUN/Creat Ratio 24.7 RATIO (10-20); Calcium,Total 9.2 mg/dL (8.5-10.1); Chloride 100 mmol/L (98-107); Creatinine, Serum 1.46 mg/dL (0.70-1.30); EST Glomerular Filtration Rate 50 mL/min (>60); Est Glom Filt Rate - Afr Amer 61 mL/min (>60); Estimated Creatinine Clearance 34.17 ml/min; Glucose 114 mg/dL (74-106); Potassium 3.9 mmol/L (3.5-5.1); Sodium Level 137 mmol/L (136-145)
[2020-07-25 10:43] LABS: Hypochromasia 1+
[2020-07-25 10:57] LABS: Magnesium 2.1 mg/dL (1.6-2.6)
--- NOTE | 2020-07-25 11:24 | ED.RN ---
pt sustained in v tach. slight sob per pt. dt dasko aware preparing for propofol
[2020-07-25] MEDS: Amiodarone 360 MG in Dextrose 5% Viaflo Bag 192.8 ML 33.3 MG CONT INF (11:25)
--- NOTE | 2020-07-25 11:41 | HP.PCM.HOS_ITS ---
HPI - General General Date of Admission: 07/25/20 HPI Narrative PETER ROMERO, is a 74 M who presents via the ED on 07/25/2020 with a complaint of shortness of breath and epigastric dicomfort. SYmptoms ahd been going on for 3-4 days prior to admission, but denied any cough, fever or chills. Review of systems was otherwise negative. On arrival in the ED, he was noted to be tachycardic with HR in the 150s, and had a wide complex tachycardia. He was evaluated by the administration internship in the ED, and started on amiodarone drip. Plan was to cardiovert him in the ED, but he converted to sinus rhythm before this could be done. In the lab, CBC showed hemoglobin of 11.6 with WBC of 8.9 and platelets of 230. EKG showed a left bundle branch block with a heart rate of [address] depressions in the lateral leads. Initial troponin was 0.536. He has been admitted to be managed for non-STEMI and ventricular tachycardia. [facility] Medical History Atrial fibrillation with [facility] group home current use of anticoagulant Home Medications warfarin 2 mg PO SUTUWETHSA 01/27/20 [History Last Taken Unknown] amiodarone 200 mg tablet 200 mg PO DAILY #90 tab 04/20/20 [Rx Last Taken Unknown] carvedilol 12.5 mg tablet 6.25 mg PO BID #180 tab 04/20/20 [Rx Last Taken Unknown] furosemide 40 mg tablet 40 mg PO DAILY #90 tab 04/20/20 [Rx Last Taken Unknown] sacubitril 24 mg-valsartan 26 mg tablet 1 tablet PO BID #60 tablet 06/13/20 [Rx Last Taken Unknown] potassium chloride 20 meq PO DAILY 07/25/20 [History Last Taken Unknown] warfarin 1 mg PO MOFR 07/25/20 [History Last Taken Unknown] Allergy/AdvReac Type Severity Reaction Status Date / Time No Known Allergies Allergy Verified 07/25/20 09:50 Social History Smoking Status: Never smoker Vital Signs Vital Signs Vital Signs: 07/25/20 09:48 07/25/20 10:00 07/25/20 10:01 Temperature 98 F Temperature Source Temporal Pulse Rate 101 H 150 H Pulse Rate [1 (Initial Baseline)] Respiratory Rate 18 20 H Respiratory Rate [1 (Initial Baseline)] Respiratory Pattern Blood Pressure 119/77 136/98 H Blood Pressure [1 (Initial Baseline)] Blood Pressure Mean 91 110 Pulse Ox 98 96 Oxygen Delivery Method Room Air Nasal Cannula Oxygen Delivery Method [1 (Initial Baseline)] Oxygen Flow Rate (L/min) 2 Oxygen Flow Rate (L/min) [1 (Initial Baseline)] 07/25/20 10:05 07/25/20 10:24 07/25/20 10:26 Temperature 98.7 F Temperature Source Oral Pulse Rate 99 98 Pulse Rate [1 (Initial Baseline)] Respiratory Rate 16 20 H Respiratory Rate [1 (Initial Baseline)] Respiratory Pattern Normal Blood Pressure 134/97 H 131/84 H Blood Pressure [1 (Initial Baseline)] Blood Pressure Mean 109 99 Pulse Ox 100 100 Oxygen Delivery Method Nasal Cannula Nasal Cannula Oxygen Delivery Method [1 (Initial Baseline)] Oxygen Flow Rate (L/min) 2 2 Oxygen Flow Rate (L/min) [1 (Initial Baseline)] 07/25/20 11:29 07/25/20 11:30 07/25/20 11:35 Temperature Temperature Source Pulse Rate 98 97 Pulse Rate [1 (Initial Baseline)] 143 H Respiratory Rate 20 H 14 Respiratory Rate [1 (Initial Baseline)] 16 Respiratory Pattern Blood Pressure 129/96 H 97/62 Blood Pressure [1 (Initial Baseline)] 129/96 H Blood Pressure Mean 107 Pulse Ox 100 99 Oxygen Delivery Method Nasal Cannula Airvo Oxygen Delivery Method [1 (Initial Baseline)] Nasal Cannula Oxygen Flow Rate (L/min) 2 Oxygen Flow Rate (L/min) [1 (Initial Baseline)] 2 Weight Weight: 120 lb Body Mass Index (BMI) 21.9 Physical Exam Const alert, oriented x3 and no apparent distress General Appearance: cooperative HEENT normocephalic, head/scalp atraumatic, hearing grossly normal bilaterally and moist oral mucous membranes Eyes PERRL, EOMs intact bilaterally and conjunctivae normal Neck no lymphadenopathy, supple and no JVD Resp normal respiratory effort, no retractions, no use of accessory muscles and clear to auscultation bilaterally Cardio S1 normal heart sound, S2 normal heart sound and no murmurs Cardio Narrative: episodic ventricular tachycardia GI normal to inspection, nondistended, normoactive bowel sounds, soft to palpation, non-tender and non-distended Extremity normal to inspection, full ROM and no clubbing, cyanosis or edema Peripheral Pulses: Yes pulses 2+ throughout Skin no rashes or lesions noted Neuro oriented x3 Sensorium / Orientation: awake and alert Psych affect normal Lab / Micro Data Result Diagrams: 07/25/20 10:12 07/25/20 10:12 Labs: Laboratory Results - last 24 hr 07/25/20 07/25/20 07/25/20 10:12 10:12 10:12 WBC 8.9 RBC 3.90 L Hgb 11.6 L Hct 36.5 L MCV 93.6 MCH 29.7 MCHC 31.8 L RDW Std Deviation 46.3 H RDW Coeff of Patricia 13.9 Plt Count 230 MPV 10.3 Immature Gran % (Auto) 0.300 Neut % (Auto) 80.2 H Lymph % (Auto) 5.8 L [place] % (Auto) 12.3 H Eos % (Auto) 1.1 Baso % (Auto) 0.3 Absolute Neuts (auto) 7.2 Absolute Lymphs (auto) 0.52 L Nucleated RBC % 0 Hypochromasia 1+ PT 30.6 H INR 3.0 Sodium 137 Potassium 3.9 Chloride 100 Carbon Dioxide 31.0 Anion Gap 6 BUN 36 H Creatinine 1.46 H Estim Creat Clear Calc 34.17 Est GFR (MDRD) Af Amer 61 Est GFR (MDRD) Non-Af 50 L BUN/Creatinine Ratio 24.7 H Glucose 114 H Calcium 9.2 Phosphorus Magnesium Troponin I 0.536 H 07/25/20 10:12 WBC RBC Hgb Hct MCV MCH MCHC RDW Std Deviation RDW Coeff of Patricia Plt Count MPV Immature Gran % (Auto) Neut % (Auto) Lymph % (Auto) [place] % (Auto) Eos % (Auto) Baso % (Auto) Absolute Neuts (auto) Absolute Lymphs (auto) Nucleated RBC % Hypochromasia PT INR Sodium Potassium Chloride Carbon Dioxide Anion Gap BUN Creatinine Estim Creat Clear Calc Est GFR (MDRD) Af Amer Est GFR (MDRD) Non-Af BUN/Creatinine Ratio Glucose Calcium Phosphorus 3.0 Magnesium 2.1 Troponin I Radiology Impression Chest X-Ray 07/25/20 10:00 IMPRESSION: No acute pulmonary process Electronically Signed: Gabriel Sousa MD at 10:49 EDT , Service support , Assessment & Plan Assessment/Plan (1) Ventricular tachycardia: (2) NSTEMI, initial episode of care: PLAN: #Ventricular tachycardia * admitted with a complaint of shortness of breath and palpitations. Found to be in ventricular tachycardia in the ED * on amiodarone drip. * on coumadin. INR is therapeutic * will check BNP. * cardiology consulted * On carvedilol. * #Nonstemi * initial troponin was 0.5; will cycle * on aspirin, will continue * on coumadin. * cardiology consulted * #history of mitral valve replacement * on coumadin. INR is 3. * #CKD stage 3b: CR is 1.46, which is around his baseline. Will monitor #Acute on chronic HFrEF * On Entresto. Diuresed with IV Lasix 40 mg twice daily. * Monitor intake and output. Fluid restriction 1500 cc daily. * DVT prophylaxis: On Coumadin. INR therapeutic. CODE STATUS: DNR CCA no intubation * Patient and counseled extensively about differences between full code, DNR CCA and DNR CCA. Patient elects to be DNR CCA. However if he does need cardioversion for V. tach, he would want to have that but does not want to have chest compressions or any other type of electric shock. * Total face to face time: 18 mins Visit Charges Inpatient E&M: 04544 Init Hosp L3 Procedures Hospitalists Procedures: [id number] Critial Care Addl 30 Min
--- NOTE | 2020-07-25 11:59 | NURSING ---
ICU [facility]
--- NOTE | 2020-07-25 12:00 | NURSING ---
ICU 4
--- NOTE | 2020-07-25 12:56 | PCM.CONS.C ---
Assessment & Plan Assessment/Plan (1) Ventricular tachycardia: PLAN: The patient presented with a wide-complex tachycardia consistent with ventricular tachycardia. He underwent conversion with intravenous amiodarone. He has been on amiodarone orally at home and says that he has been compliant with the above. I would recommend half loading with intravenous amiodarone and further recommendations will depend on the results of the above. (2) Atrial fibrillation with RVR: PLAN: Patient has a previous history of atrial fibrillation with a rapid ventricular response rate. He appears to be maintaining sinus rhythm at this particular time. He has been anticoagulated with a therapeutic INR. No further recommendations regarding the above will be made (3) S/P MVR (mitral valve replacement): PLAN: He does have a history of mitral valve replacement. Last echocardiogram in December 2019 demonstrated stable mitral valve apparatus. (4) S/P AVR (aortic valve replacement): PLAN: He does have evidence of an aortic valve replacement. The last evaluation demonstrated stable gradients across the aortic valve. (5) Cardiomyopathy: QUALIFIERS: Cardiomyopathy type: unspecified Qualified Code(s): I42.9 - Cardiomyopathy, unspecified PLAN: He does have evidence of a nonischemic cardiomyopathy. His last estimated ejection fraction was 20%. The plan is to continue his beta-feroz , Entresto, and diuretics as appropriate. (6) ICD (implantable cardioverter-defibrillator) in place: PLAN: He has an implantable defibrillator. He will continue follow-up clinic. It appears that his heart rate of 150 bpm was below the cutoff point for triggering cardioversion. (7) Acute congestive heart failure with left ventricular diastolic dysfunction: PLAN: He does have evidence of congestive heart failure [place] [employer] class III ACC stage C We will continue the diuretics Continue beta-feroz Continue Entresto May need to consider the addition of Aldactone however he does have some renal dysfunction, so one needs to be careful about further renal or potassium changes. I would defer this to the primary intake man (8) NSTEMI, initial episode of care: PLAN: He did have evidence of mild troponin elevation which I suspect was secondary to the tachycardia and more likely a type II event. We will continue to trend troponins Further recommendations will depend on the results of the above HPI Consult Data Date of Consult: 07/25/20 HPI Narrative Reason for Consultation: Tachycardia HPI Narrative: PETER ROMERO, is a 74 M who presents to the emergency room with a few days history of tachycardia. Patient has also been short of breath. His called me this morning and was directed to go to the emergency room. In the emergency room he was noted to have a wide-complex tachycardia which I discussed with the emergency room physician. He was given intravenous amiodarone with subsequent conversion to sinus rhythm. He had denied any chest pain paroxysmal nocturnal dyspnea or pedal edema. He has not had any neck arm or jaw discomfort to suggest angina. He has a history of systolic and diastolic heart failure, known decreased ejection fraction of 20% with ICD placement, aortic and mitral valve replacement, chronic kidney disease, hyperlipidemia. Patient was admitted on 01/12/2020 for atrial fibrillation with RVR, non-STEMI and cardiomyopathy with a decreased ejection fraction of 20%. Previous records from [facility] demonstrated an ejection fraction of 35%. He underwent a MYRTLE which demonstrated questionable fibrinous strands on his ICD lead. Cardioversion was placed on hold. He was told to continue with his amiodarone, Coreg and Coumadin. He was discharged home on 01/14/2020. He was then again readmitted on January 18, 2020 for acute congestive diastolic heart failure. He was discharged home on 01/20/2020. He was seen in our office in january and he was noted to be in SR that was ventricular paced. He has apparently done well since then. [facility] Medical History Atrial fibrillation with RVR nursing home current use of anticoagulant Home Medications warfarin 2 mg PO SUTUWETHSA 01/27/20 [History Last Taken Unknown] amiodarone 200 mg tablet 200 mg PO DAILY #90 tab 04/20/20 [Rx Last Taken Unknown] carvedilol 12.5 mg tablet 6.25 mg PO BID #180 tab 04/20/20 [Rx Last Taken Unknown] furosemide 40 mg tablet 40 mg PO DAILY #90 tab 04/20/20 [Rx Last Taken Unknown] sacubitril 24 mg-valsartan 26 mg tablet 1 tablet PO BID #60 tablet 06/13/20 [Rx Last Taken Unknown] potassium chloride 20 meq PO DAILY 07/25/20 [History Last Taken Unknown] warfarin 1 mg PO MOFR 07/25/20 [History Last Taken Unknown] Allergy/AdvReac Type Severity Reaction Status Date / Time No Known Allergies Allergy Verified 07/25/20 09:50 Social History Smoking Status: Never smoker ROS Constitutional Constitutional: Denies fever(s) or weight loss Eyes Eyes: Reports as per HPI ENT HEENT: Reports as per HPI Cardiovascular Cardiovascular: Reports dyspnea at rest, rapid heart rate and other Respiratory/Chest Respiratory/Chest: Reports dyspnea and other Gastrointestinal Gastrointestinal: Denies change in bowel habits, nausea, vomiting or weight changes Genitourinary Genitourinary: Denies difficulty urinating Musculoskeletal Musculoskeletal: Denies joint stiffness or muscle weakness Integumentary Integumentary: Denies lesions Neurologic Neurologic: Denies dizziness or syncope Psychiatric Psychiatric: Denies anxiety Endocrine Endocrinology: Denies excessive sweating or fatigue Hematologic/Lymphatic Hematologic/Lymphatic: Denies anemia Allergic/Immunologic Allergic/Immunologic: Denies seasonal rhinorrhea Physical Exam Const oriented x3 and healthy appearing Orientation / Consciousness: awake HEENT normocephalic Eyes PERRL and conjunctivae normal Neck supple, no JVD and no carotid bruits Chest inspection of chest normal Chest Narrative: Defibrillator in place Resp normal respiratory effort and clear to auscultation bilaterally Cardio Palpation: normal PMI Rate: tachycardic Rhythm: regular rhythm Heart Sounds: S1 normal and S2 normal Peripheral Pulses: pulses 2+ throughout GI normal to inspection, nondistended, normoactive bowel sounds Extremity normal to inspection and no clubbing, cyanosis or edema Psych mental status grossly normal Objective Data Vital Signs: Vital Signs Temp Pulse Resp BP Pulse Ox 97.2 F L 97 16 128/86 H 99 07/25/20 12:05 07/25/20 12:05 07/25/20 12:05 07/25/20 12:05 07/25/20 12:05 Oxygen Flow Rate (L/min) [1 ( 2 Initial Baseline)] Oxygen Flow Rate (L/min) 2 Oxygen Delivery Method [1 ( Nasal Cannula Initial Baseline)] Oxygen Delivery Method Nasal Cannula Weight: 120 lb Body Mass Index (BMI) 21.9 Lab / Micro Data Result Diagrams: 07/25/20 10:12 07/25/20 10:12 Labs: Laboratory Results - last 24 hr 07/25/20 07/25/20 07/25/20 10:12 10:12 10:12 WBC 8.9 RBC 3.90 L Hgb 11.6 L Hct 36.5 L MCV 93.6 MCH 29.7 MCHC 31.8 L RDW Std Deviation 46.3 H RDW Coeff of Patricia 13.9 Plt Count 230 MPV 10.3 Immature Gran % (Auto) 0.300 Neut % (Auto) 80.2 H Lymph % (Auto) 5.8 L [place] % (Auto) 12.3 H Eos % (Auto) 1.1 Baso % (Auto) 0.3 Absolute Neuts (auto) 7.2 Absolute Lymphs (auto) 0.52 L Nucleated RBC % 0 Hypochromasia 1+ PT 30.6 H INR 3.0 Sodium 137 Potassium 3.9 Chloride 100 Carbon Dioxide 31.0 Anion Gap 6 BUN 36 H Creatinine 1.46 H Estim Creat Clear Calc 34.17 Est GFR (MDRD) Af Amer 61 Est GFR (MDRD) Non-Af 50 L BUN/Creatinine Ratio 24.7 H Glucose 114 H Calcium 9.2 Phosphorus Magnesium Troponin I 0.536 H 07/25/20 10:12 WBC RBC Hgb Hct MCV MCH MCHC RDW Std Deviation RDW Coeff of [place] Plt Count MPV Immature Gran % (Auto) Neut % (Auto) Lymph % (Auto) [place] % (Auto) Eos % (Auto) Baso % (Auto) Absolute Neuts (auto) Absolute Lymphs (auto) Nucleated RBC % Hypochromasia PT INR Sodium Potassium Chloride Carbon Dioxide Anion Gap BUN Creatinine Estim Creat Clear Calc Est GFR (MDRD) Af Amer Est GFR (MDRD) Non-Af BUN/Creatinine Ratio Glucose Calcium Phosphorus 3.0 Magnesium 2.1 Troponin I Cardiology Labs/Tests 07/25/20 10:12: WBC 8.9, RBC 3.90 L, Hgb 11.6 L, Hct 36.5 L, MCV 93.6, MCH 29.7, MCHC 31.8 L, Plt Count 230, MPV 10.3, Immature Gran % (Auto) 0.300, Neut % (Auto) 80.2 H, Lymph % (Auto) 5.8 L, [place] % (Auto) 12.3 H, Eos % (Auto) 1.1, Baso % (Auto) 0.3, Absolute Neuts (auto) 7.2, Nucleated RBC % 0 07/25/20 10:12: PT 30.6 H, INR 3.0 07/25/20 10:12: Sodium 137, Potassium 3.9, Chloride 100, Carbon Dioxide 31.0, Anion Gap 6, BUN 36 H, Creatinine 1.46 H, Est GFR (MDRD) Af Amer 61, Est GFR (MDRD) Non-Af 50 L, BUN/Creatinine Ratio 24.7 H, Glucose 114 H, Calcium 9.2, Troponin I 0.536 H 07/25/20 10:12: Phosphorus 3.0, Magnesium 2.1 Rhythm: EKG: Presenting EKG demonstrated a wide-complex tachycardia with a rate of approximately 150 bpm consistent with ventricular tachycardia ECHO: Previous echocardiogram from December 2019 demonstrated an ejection fraction of 20% Stress Test: Cardiac Cath: PCI: CT Surgery: Holter monitor: EPS: PPM: CXR: Chest CT Scan: Radiography Diagnostic Testing: Radiology Impression Chest X-Ray 07/25/20 10:00 IMPRESSION: No acute pulmonary process Electronically Signed: Gabriel Sousa MD at 10:49 EDT , Service support ,
--- NOTE | 2020-07-25 13:08 | ECHOL_ITS ---
Reason For Study: ARRHYTHMIA Procedure This was a 2D Doppler, Color Flow transthoracic echocardiogram. Limited views were obtained. Exam performed portable in patient room. Left Ventricle Mildly dilated left ventricle. Severe global left ventricular systolic dysfunction. The estimated ejection fraction is 20 %. Right Ventricle Normal RV size. ICD or pacer leads identified within the right ventricle. Normal systolic function. Atria The left atrium is moderately enlarged. Normal right atrium. ICD or pacer leads identified within the right atrium. Mitral Valve Stable appearing mechanical mitral valve apparatus. Tricuspid Valve Normal tricuspid valve. Aortic Valve Stable appearing mechanical aortic valve apparatus. Pulmonic Valve The pulmonic valve is not well visualized. Great Vessels Normal sized aortic root. Pericardium/Pleural No pericardial effusion. MMode/2D Measurements & Calculations LVIDd: 5.6 cm IVSd: 1.0 cm Ao root diam: 3.6 cm LVIDs: 4.9 cm LVPWd: 1.0 cm FS: 12.7 % LAV(MOD-sp4): 137.0 ml LA A4 area: 32.2 cm2 RA A4 area: 17.0 cm2 ECHO/Echo, Limited Study Interpretation Summary Limited views were obtained. Mildly dilated left ventricle. Severe global left ventricular systolic dysfunction. The estimated ejection fraction is 20 %. The left atrium is moderately enlarged. Stable appearing mechanical mitral valve apparatus. Stable appearing mechanical aortic valve apparatus. Small mobile echodensity in the submitral valvular apparatus compatible with re dundant / flail chordae tendonae. Comment: Compared with the previous transthoracic echocardiogram from 0: There are similar type changes. Ordering Physician: Emanuel Hough Referring Physician: Lawrence Cross Performed By: Adele Pedro RDCS, RVT
--- NOTE | 2020-07-25 13:49 | EKG12_ITS ---
Test Reason : RACING HR Blood Pressure : / mmHG Vent. Rate : 150 BPM Atrial Rate : 150 BPM P-R Int : 000 ms QRS Dur : 206 ms QT Int : 344 ms P-R-T Axes : 000 128 -68 degrees QTc Int : 543 ms Wide QRS tachycardia Right bundle branch block Pattern Abnormal ECG Confirmed by ZULY IRIZARRY, SAKINA ([id number]), news copy editor ARY COLE ([id number]) on 07/27/2020 12:52:50 PM Referred By: LES Confirmed By:SAKINA CARUSO MD
[2020-07-25 15:31] LABS: BNP,B-Type NATRIURETIC PEPTIDE 2118.2 pg/mL (0-100)
[2020-07-25] MEDS: Furosemide 40 MG/4 ML Vial IV (17:51)
[2020-07-25] MEDS: Carvedilol 12.5 MG Tablet PO (21:10)
[2020-07-25] MEDS: SACUBITRIL/VALSARTAN 24/26 MG TABLET 1 EACH PO (21:10)
[2020-07-25] MEDS: Amiodarone 360 MG in Dextrose 5% Viaflo Bag 192.8 ML 16.7 MG CONT INF (21:14)
[2020-07-26] VITALS (30 sets, daily range): BP systolic 82–111; BP diastolic 54–74; PULSE 91–135; RESP 18–26; TEMP 36.4–37; O2SAT 92–99; BMI 21.7
[2020-07-26 06:37] LABS: Absolute Neutrophil Count 6.5 X10^3/uL (2.0-7.7); Basophil# 0.03 X10^3/uL; Basophil% 0.4 % (0-1); Eosinophil# 0.08 X10^3/uL; Hematocrit 32.2 % (40-54); Hemoglobin 10.6 g/dL (13.0-16.5); Mean Corp Hgb Conc 32.9 g/dL (32-36); Mean Corpuscular Hgb 29.8 pg (27.0-32.0); Mean Corpuscular Volume 90.4 fL (80-94); Mean Platelet Vol. 10.7 fl (6.2-12.0); Monocyte# 0.95 X10^3/uL; Monocyte% 11.8 % (0-10); NRBC Flagged by Analyzer 0 % (0-5); Neutrophil # 6.54 X10^3/uL (2.7-7.7); Neutrophil % 81.3 % (47-70); POSITIVE DIFFERENTIAL YES; Platelet Count 192 K/mm3 (150-450); RBC Distribution Width CV 13.9 % (11.6-14.6); RBC Distribution Width SD 46.1 fl (35.1-43.9); Red Blood Count 3.56 M/mm3 (4.6-6.2)
[2020-07-26 06:38] LABS: Differential Indicated SCAN CRITERIA MET
[2020-07-26 07:03] LABS: Anion Gap 6 (5-15); BUN 30 mg/dL (7-18); BUN/Creat Ratio 24.6 RATIO (10-20); Calcium,Total 8.5 mg/dL (8.5-10.1); Chloride 99 mmol/L (98-107); Creatinine, Serum 1.22 mg/dL (0.70-1.30); EST Glomerular Filtration Rate 62 mL/min (>60); Est Glom Filt Rate - Afr Amer 75 mL/min (>60); Estimated Creatinine Clearance 40.57 ml/min; Glucose 101 mg/dL (74-106); Potassium 3.9 mmol/L (3.5-5.1); Sodium Level 136 mmol/L (136-145)
--- NOTE | 2020-07-26 07:46 | PN.HOSP_ITS ---
Subjective Subjective Patient seen and examined. He is being managed for ventricular tachycardia and acute on chronic HF. He feels much better today and has no complaints. Shortness of breath and palpitations have improved. However he has been in and out of V. tach overnight and at time of review, he was still tachycardic. He was having a piece his pacemaker and ICD interrogated at time of review. He has otherwise remained hemodynamically stable. He remains on amiodarone drip. Objective Data Objective Data Vital Signs: Vital Signs Temp Pulse Resp BP Pulse Ox 98.3 F 94 19 H 94/62 99 07/26/20 06:00 07/26/20 07:09 07/26/20 06:00 07/26/20 07:00 07/26/20 06:00 Oxygen Flow Rate (L/min) [1 ( 2 Initial Baseline)] Oxygen Flow Rate (L/min) 2 Oxygen Delivery Method [1 ( Nasal Cannula Initial Baseline)] Oxygen Delivery Method Nasal Cannula Weight: 119 lb 0.794 oz Body Mass Index (BMI) 21.9 Intake & Output: Intake and Output for Last 24 Hours 07/24/20 07/25/20 07/26/20 23:59 23:59 23:59 Intake Total 790.96 / 807.66 233.6 / 233.6 Output Total 1300 / 1300 425 / 425 Balance -509.04 / -492.34 -191.4 / -191.4 Lab / Micro Data Result Diagrams: 07/26/20 06:05 07/26/20 06:05 Labs: Laboratory Results - last 24 hr 07/25/20 07/25/20 07/25/20 10:12 10:12 10:12 WBC 8.9 RBC 3.90 L Hgb 11.6 L Hct 36.5 L MCV 93.6 MCH 29.7 MCHC 31.8 L RDW Std Deviation 46.3 H RDW Coeff of Patricia 13.9 Plt Count 230 MPV 10.3 Immature Gran % (Auto) 0.300 Neut % (Auto) 80.2 H Lymph % (Auto) 5.8 L [place] % (Auto) 12.3 H Eos % (Auto) 1.1 Baso % (Auto) 0.3 Absolute Neuts (auto) 7.2 Absolute Lymphs (auto) 0.52 L Nucleated RBC % 0 Hypochromasia 1+ PT 30.6 H INR 3.0 Sodium 137 Potassium 3.9 Chloride 100 Carbon Dioxide 31.0 Anion Gap 6 BUN 36 H Creatinine 1.46 H Estim Creat Clear Calc 34.17 Est GFR (MDRD) Af Amer 61 Est GFR (MDRD) Non-Af 50 L BUN/Creatinine Ratio 24.7 H Glucose 114 H Calcium 9.2 Phosphorus Magnesium Troponin I 0.536 H B-Natriuretic Peptide 07/25/20 07/25/20 07/25/20 10:12 10:12 14:43 WBC RBC Hgb Hct MCV MCH MCHC RDW Std Deviation RDW Coeff of Patricia Plt Count MPV Immature Gran % (Auto) Neut % (Auto) Lymph % (Auto) [place] % (Auto) Eos % (Auto) Baso % (Auto) Absolute Neuts (auto) Absolute Lymphs (auto) Nucleated RBC % Hypochromasia PT INR Sodium Potassium Chloride Carbon Dioxide Anion Gap BUN Creatinine Estim Creat Clear Calc Est GFR (MDRD) Af Amer Est GFR (MDRD) Non-Af BUN/Creatinine Ratio Glucose Calcium Phosphorus 3.0 Magnesium 2.1 Troponin I 0.547 H B-Natriuretic Peptide 2118.2 H 07/25/20 07/26/20 07/26/20 16:50 06:05 06:05 WBC 8.0 RBC 3.56 L Hgb 10.6 L Hct 32.2 L MCV 90.4 MCH 29.8 MCHC 32.9 RDW Std Deviation 46.1 H RDW Coeff of Patricia 13.9 Plt Count 192 MPV 10.7 Immature Gran % (Auto) 0.500 Neut % (Auto) 81.3 H Lymph % (Auto) 5.0 L [place] % (Auto) 11.8 H Eos % (Auto) 1.0 Baso % (Auto) 0.4 Absolute Neuts (auto) 6.5 Absolute Lymphs (auto) 0.40 L Nucleated RBC % 0 Hypochromasia PT INR Sodium 136 Potassium 3.9 Chloride 99 Carbon Dioxide 31.0 Anion Gap 6 BUN 30 H Creatinine 1.22 Estim Creat Clear Calc 40.57 Est GFR (MDRD) Af Amer 75 Est GFR (MDRD) Non-Af 62 BUN/Creatinine Ratio 24.6 H Glucose 101 Calcium 8.5 Phosphorus Magnesium Troponin I 0.516 H B-Natriuretic Peptide Radiography Diagnostic Testing: Radiology Impression Chest X-Ray 07/25/20 10:00 IMPRESSION: No acute pulmonary process Electronically Signed: Gabriel Sousa MD at 10:49 EDT , Service support , Physical Exam Const alert, oriented x3 and no apparent distress General Appearance: cooperative HEENT normocephalic, head/scalp atraumatic, hearing grossly normal bilaterally and moist oral mucous membranes Eyes PERRL, EOMs intact bilaterally and conjunctivae normal Neck no lymphadenopathy, supple and no JVD Resp normal respiratory effort, no retractions, no use of accessory muscles and clear to auscultation bilaterally Cardio S1 normal heart sound, S2 normal heart sound and no murmurs Cardio Narrative: episodic ventricular tachycardia GI normal to inspection, nondistended, normoactive bowel sounds, soft to palpation, non-tender and non-distended Extremity normal to inspection, full ROM and no clubbing, cyanosis or edema Skin no rashes or lesions noted Neuro oriented x3 Sensorium / Orientation: awake and alert Psych affect normal Assessment & Plan Assessment/Plan (1) Ventricular tachycardia: (2) NSTEMI, initial episode of care: PLAN: #Ventricular tachycardia * still on amiodarone drip. On oral carvedilol and oral amiodarone * cardiology on board. * on coumadin. INR is 3.1 today * he has an ICD in place * * #Nonstemi * initial troponin was 0.536, trended up slightly to 0.547 and then trended down to 0.516. * on aspirin * on coumadin. INR is 3.1 today. * cardiology on board. Per cardiology, this may be due to a type 2 demand ischemia, likely due to tachycardia * * #history of mitral valve and aortic valve replacement * on coumadin. INR is therapeutic * #CKD stage 3b: CR is 1.22 today. Will trend and monitor #Acute on chronic HFrEF * On Entresto. Diuresed with IV Lasix 40 mg twice daily. * BNP was 2118 on admission. * Monitor intake and output. Fluid restriction 1500 cc daily. * last known EF was 20%. * DVT prophylaxis: On Coumadin. INR therapeutic. CODE STATUS: DNR CCA no intubation * Visit Charges Inpatient E&M: 52119 Subs Hosp L3
[2020-07-26 07:58] LABS: International Normalized Ratio 3.1; Prothrombin Time (Protime)PT. 31.2 SECONDS (11.7-14.9)
[2020-07-26] MEDS: SACUBITRIL/VALSARTAN 24/26 MG TABLET 1 EACH PO ×2 (09:04→21:16)
[2020-07-26] MEDS: Furosemide 40 MG/4 ML Vial IV (09:04)
[2020-07-26] MEDS: Carvedilol 12.5 MG Tablet PO ×2 (09:04→21:14)
[2020-07-26] MEDS: Potassium Chloride Oral Tablet 20 MEQ PO (09:04)
[2020-07-26] MEDS: 0.9% Saline Lock 10 ML Syringe IV (09:12)
[2020-07-26] MEDS: Amiodarone 360 MG in Dextrose 5% Viaflo Bag 192.8 ML 16.7 MG CONT INF ×2 (10:23→22:07)
--- NOTE | 2020-07-26 11:18 | EKG12_ITS ---
Test Reason : Blood Pressure : / mmHG Vent. Rate : 095 BPM Atrial Rate : 096 BPM P-R Int : 000 ms QRS Dur : 190 ms QT Int : 508 ms P-R-T Axes : 000 -61 137 degrees QTc Int : 638 ms Wide complex rhythm Left axis deviation Left bundle branch block pattern Abnormal ECG Confirmed by ZULY IRIZARRY, SAKINA ([id number]), editor map ARY COLE ([id number]) on 07/27/2020 1:18:07 PM Referred By: VALERIA Confirmed By:SAKINA CARUSO MD
--- NOTE | 2020-07-26 12:16 | PN.CARD_ITS ---
Subjective Subjective The patient is awake and alert. He denies any acute chest discomfort or difficulty breathing. He reports no loss of consciousness. Objective Data Vital Signs: Vital Signs Temp Pulse Resp BP Pulse Ox 97.9 F 94 18 88/72 L 94 07/26/20 08:00 07/26/20 10:00 07/26/20 08:00 07/26/20 10:00 07/26/20 08:00 Oxygen Flow Rate (L/min) [1 ( 2 Initial Baseline)] Oxygen Flow Rate (L/min) 2 Oxygen Delivery Method [1 ( Nasal Cannula Initial Baseline)] Oxygen Delivery Method Room Air Weight: 119 lb 0.794 oz Body Mass Index (BMI) 21.9 Intake & Output: Intake and Output for Last 24 Hours 07/24/20 07/25/20 07/26/20 23:59 23:59 23:59 Intake Total 790.96 / 807.66 270.5 / 270.5 Output Total 1300 / 1300 425 / 425 Balance -509.04 / -492.34 -154.5 / -154.5 Lab / Micro Data Result Diagrams: 07/26/20 06:05 07/26/20 06:05 Labs: Laboratory Results - last 24 hr 07/25/20 07/25/20 07/25/20 10:12 14:43 16:50 WBC RBC Hgb Hct MCV MCH MCHC RDW Std Deviation RDW Coeff of Patricia Plt Count MPV Immature Gran % (Auto) Neut % (Auto) Lymph % (Auto) [place] % (Auto) Eos % (Auto) Baso % (Auto) Absolute Neuts (auto) Absolute Lymphs (auto) Nucleated RBC % PT INR Sodium Potassium Chloride Carbon Dioxide Anion Gap BUN Creatinine Estim Creat Clear Calc Est GFR (MDRD) Af Amer Est GFR (MDRD) Non-Af BUN/Creatinine Ratio Glucose Calcium Troponin I 0.547 H 0.516 H B-Natriuretic Peptide 2118.2 H 07/26/20 07/26/20 07/26/20 06:05 06:05 06:05 WBC 8.0 RBC 3.56 L Hgb 10.6 L Hct 32.2 L MCV 90.4 MCH 29.8 MCHC 32.9 RDW Std Deviation 46.1 H RDW Coeff of Patricia 13.9 Plt Count 192 MPV 10.7 Immature Gran % (Auto) 0.500 Neut % (Auto) 81.3 H Lymph % (Auto) 5.0 L [place] % (Auto) 11.8 H Eos % (Auto) 1.0 Baso % (Auto) 0.4 Absolute Neuts (auto) 6.5 Absolute Lymphs (auto) 0.40 L Nucleated RBC % 0 PT 31.2 H INR 3.1 Sodium 136 Potassium 3.9 Chloride 99 Carbon Dioxide 31.0 Anion Gap 6 BUN 30 H Creatinine 1.22 Estim Creat Clear Calc 40.57 Est GFR (MDRD) Af Amer 75 Est GFR (MDRD) Non-Af 62 BUN/Creatinine Ratio 24.6 H Glucose 101 Calcium 8.5 Troponin I B-Natriuretic Peptide Cardiology Labs/Tests 07/25/20 10:12: B-Natriuretic Peptide 2118.2 H 07/25/20 14:43: Troponin I 0.547 H 07/25/20 16:50: Troponin I 0.516 H 07/26/20 06:05: WBC 8.0, RBC 3.56 L, Hgb 10.6 L, Hct 32.2 L, MCV 90.4, MCH 29.8, MCHC 32.9, Plt Count 192, MPV 10.7, Immature Gran % (Auto) 0.500, Neut % (Auto) 81.3 H, Lymph % (Auto) 5.0 L, [place] % (Auto) 11.8 H, Eos % (Auto) 1.0, Baso % (Auto) 0.4, Absolute Neuts (auto) 6.5, Nucleated RBC % 0 07/26/20 06:05: Sodium 136, Potassium 3.9, Chloride 99, Carbon Dioxide 31.0, A nion Gap 6, BUN 30 H, Creatinine 1.22, Est GFR (MDRD) Af Amer 75, Est GFR (MDRD) Non-Af 62, BUN/Creatinine Ratio 24.6 H, Glucose 101, Calcium 8.5 07/26/20 06:05: PT 31.2 H, INR 3.1 Rhythm: Wide-complex rhythm appearing compatible with an underlying atrial dysrhythmia with a bundle branch block pattern Radiography Diagnostic Testing: Radiology Impression Echocardiogram 07/25/20 13:08 Interpretation Summary Limited views were obtained. Mildly dilated left ventricle. Severe global left ventricular systolic dysfunction. The estimated ejection fraction is 20 %. The left atrium is moderately enlarged. Stable appearing mechanical mitral valve apparatus. Stable appearing mechanical aortic valve apparatus. Small mobile echodensity in the submitral valvular apparatus compatible with redundant / flail chordae tendonae. Comment: Compared with the previous transthoracic echocardiogram from 01-12-2020: There are similar type changes. Ordering Physician: Emanuel Hough Referring Physician: Lawrence Cross Performed By: Adele Pedro, MIKY, RVT Physical Exam Const alert and oriented x3 Orientation / Consciousness: awake HEENT normocephalic, head/scalp atraumatic and hearing grossly normal bilaterally Eyes PERRL, EOMs intact bilaterally, conjunctivae normal and no scleral icterus Neck full ROM, supple and no JVD Chest inspection of chest normal Resp normal respiratory effort Cardio Palpation: abnormal PMI Rhythm: abnormal rhythm irregularly irregular Heart Sounds: prosthetic sounds crisp prosthetic S1 and crisp prosthetic S2 GI normal to inspection, nondistended, normoactive bowel sounds Extremity normal to inspection Skin no rashes or lesions noted Psych mental status grossly normal Assessment & Plan Assessment/Plan (1) Atrial fibrillation with RVR: PLAN: The patient's underlying rhythm has been evaluated with ICD interrogation. Based upon the ICD interrogation the consensus was the underlying rhythm appeared to be an atrial dysrhythmia potentially atrial flutter with a bundle branch block pattern. At the moment the patient will continue rate control therapy and antiarrhythmic therapy and anticoagulant therapy. The patient will be considered for a future attempt at synchronized biphasic DC cardioversion to regain sinus rhythm. The patient may also need to return to electrophysiology for further evaluation/recommendations on his recurrent atrial dysrhythmia despite medical therapy superimposed upon his underlying cardiomyopathy, etc. (2) Ventricular tachycardia: PLAN: The patient presented with wide-complex dysrhythmias. Again based upon his ICD in the interrogation and reviewed the information it appeared the consensus was that his underlying rhythm was compatible with an atrial dysrhythmia such as atrial flutter with the patient's underlying bundle branch block pattern. The patient is continuing medical management as noted above. His ICD appears to be functioning appropriately. (3) ICD (implantable cardioverter-defibrillator) in place: PLAN: The patient's ICD did demonstrate that the patient's battery longevity is approximately 5 years with a backup VVI mode at 40 bpm and he has been ventricular pacing at approximately 0.6% of the time. His VT zone detection rate was set at 188. (4) Cardiomyopathy: QUALIFIERS: Cardiomyopathy type: unspecified Qualified Code(s): I42.9 - Cardiomyopathy, unspecified PLAN: The patient does have an underlying cardiomyopathy. His left ventricular wall motion and systolic function has been reassessed with a transthoracic echocardiogram. The results are noted below. The patient will need to continue medical management with adjustment as tolerated. (5) S/P MVR (mitral valve replacement): PLAN: The patient has a history of MVR. Based upon his echocardiographic study his mechanical mitral valve apparatus appeared to be stable. He will continue AHA antibiotic prophylaxis and anticoagulant therapy. (6) S/P AVR (aortic valve replacement): PLAN: The patient has a history of AVR. Based upon his echocardiographic study his mechanical aortic valve apparatus appeared to be stable. He will continue AHA antibiotic prophylaxis and anticoagulant therapy. (7) NSTEMI, initial episode of care: PLAN: The patient has an normal cardiac enzymes. He has a history of abnormal cardiac enzymes. At the moment the consensus is that this is secondary-a type II event-to his cardiac dysrhythmia superimposed upon his underlying cardiomyopathy. He will continue medical management at this time. Addt'l Comments The patient's case has been discussed and reviewed with the patient.
--- NOTE | 2020-07-26 12:30 | CASEMGMT ---
BARRIE SERRANO assessment: Face to Face with patient for initial transition planning/care coordination assessment. BARRIE SERRANO introduced self and role at [facility], pt voices understanding and consents to assessment. Pt is lying bed in no distress on room air. Pt is A/Ox4 and answers all questions appropriately. Pt's is at bedside during assessment. Care providers, pharmacy, and demographics verified. Presentation: SOB, heart racing for 'several days' Admitting dx: NSTEMI, Vtach PCP: Tay Specialists: Pt states no current specialists. [facility]: [facility] Living Will/HPOA: Pt has LW/HPOA and is aware that they are not on file at [facility]. Pt states his son, Jakub Ozuna, is HPOA. LNOK: Lynne Ozuna, ; Jakub Ozuna, son Living Arrangements: Pt states lives with in 2 story home and states no concerns at home. Pt states is independent with ADL's. Transportation: Pt states has transportation and states no concerns. DME/HHC: Pt states no current DME or need for any at this time. Pt states has had HHC in the past s/p heart surgery but has not been to SNF. Pt states no concerns with going home at time of discharge. Pt is retired. Pt states does not smoke cigarettes or drink ETOH. Pt states no further concerns/needs. CM to follow for PT/OT evals and any further discharge planning/needs. Advised pt/ to ask for CM if any further questions/concerns/needs arise, voices understanding. Pt Goal: Home Plan: [place] BARRIE SERRANO
--- NOTE | 2020-07-26 12:51 | CHAPLAIN ---
Type of Pastoral Visit _x__ Initial Visit ___ Follow-up Visit ___ On-call Visit ___ General Patient Visit ___ Spiritual Assessment ___ Family Conference ___ Bereavement ___ Rapid Response ___ Code Blue ___ Other (describe below) Pastoral Care Referral From _x__ Patient ___ Family ___ Nurse ___ Physician ___ Warp Spooler ___ Clinical Counselor ___ Other (describe below) Sacrament/Intervention _x__ Active listening ___ Anointing ___ Anabaptist ___ Bereavement ___ Communion _x__ Izabela exploration ___ _x__ Life review _x__ Prayer ___ Reconciliation ___ Sacrament of Sick _x__ Supportive presence ___ Wedding ___ Other (describe below) Pastoral Comments
[2020-07-26] MEDS: Jantoven 2 MG Tablet PO (18:16)
[2020-07-27] VITALS (34 sets, daily range): BP systolic 81–115; BP diastolic 50–76; PULSE 55–133; RESP 12–23; TEMP 36.1–36.8; O2SAT 9–100
[2020-07-27 05:35] LABS: Absolute Lymphocyte Count 0.47 X10^3/uL (0.83-4.51); Absolute Neutrophil Count 5.4 X10^3/uL (2.0-7.7); Basophil# 0.04 X10^3/uL; Basophil% 0.6 % (0-1); Eosinophil# 0.19 X10^3/uL; Eosinophils% 2.7 % (0-5); Hematocrit 33.5 % (40-54); Hemoglobin 10.8 g/dL (13.0-16.5); Lymphocyte # 0.47 X10^3/ul (0.83-4.51); Lymphocyte % 6.6 % (19-41); Mean Corp Hgb Conc 32.2 g/dL (32-36); Mean Corpuscular Hgb 29.5 pg (27.0-32.0); Mean Corpuscular Volume 91.5 fL (80-94); Mean Platelet Vol. 10.9 fl (6.2-12.0); Monocyte# 0.91 X10^3/uL; Monocyte% 12.9 % (0-10); NRBC Flagged by Analyzer 0 % (0-5); Neutrophil # 5.44 X10^3/uL (2.7-7.7); Neutrophil % 76.8 % (47-70); POSITIVE DIFFERENTIAL YES; Platelet Count 188 K/mm3 (150-450); RBC Distribution Width CV 13.7 % (11.6-14.6); RBC Distribution Width SD 45.8 fl (35.1-43.9); Red Blood Count 3.66 M/mm3 (4.6-6.2); White Blood Count 7.1 K/mm3 (4.4-11.0)
[2020-07-27 05:44] LABS: Differential Indicated SCAN CRITERIA MET
[2020-07-27 05:55] LABS: Anion Gap 6 (5-15); BUN 36 mg/dL (7-18); BUN/Creat Ratio 27.9 RATIO (10-20); Calcium,Total 8.6 mg/dL (8.5-10.1); Chloride 100 mmol/L (98-107); Creatinine, Serum 1.29 mg/dL (0.70-1.30); EST Glomerular Filtration Rate 58 mL/min (>60); Est Glom Filt Rate - Afr Amer 70 mL/min (>60); Estimated Creatinine Clearance 38.37 ml/min; Glucose 102 mg/dL (74-106); Potassium 4.1 mmol/L (3.5-5.1); Sodium Level 136 mmol/L (136-145)
[2020-07-27 06:02] LABS: International Normalized Ratio 2.8; Prothrombin Time (Protime)PT. 28.9 SECONDS (11.7-14.9)
--- NOTE | 2020-07-27 08:56 | CASEMGMT ---
[facility] palliative screening tool completed and pt does qualify for palliative referral but no referral made per Dr. Jean's order at this time. John SOOD CM
--- NOTE | 2020-07-27 09:06 | PCM.PN.CARD ---
Subjective Subjective The patient is awake and alert. He denies any ongoing chest discomfort or difficulty breathing at this time. Objective Data Vital Signs: Vital Signs Temp Pulse Resp BP Pulse Ox 98.3 F 93 14 92/67 100 07/27/20 08:04 07/27/20 08:04 07/27/20 08:04 07/27/20 08:04 07/27/20 08:04 Oxygen Flow Rate (L/min) [1 ( 2 Initial Baseline)] Oxygen Flow Rate (L/min) 2 Oxygen Delivery Method [1 ( Nasal Cannula Initial Baseline)] Oxygen Delivery Method Nasal Cannula Weight: 119 lb 4.321 oz Body Mass Index (BMI) 21.7 Intake & Output: Intake and Output for Last 24 Hours 07/25/20 07/26/20 07/27/20 23:59 23:59 23:59 Intake Total 790.96 / 807.66 1201.20 / 1217.90 153.64 / 153.64 Output Total 1300 / 1300 1400 / 1400 150 / 150 Balance -509.04 / -492.34 -198.80 / -182.10 3.64 / 3.64 Lab / Micro Data Result Diagrams: 07/27/20 05:00 07/27/20 05:00 Labs: Laboratory Results - last 24 hr 07/27/20 07/27/20 07/27/20 05:00 05:00 05:00 WBC 7.1 RBC 3.66 L Hgb 10.8 L Hct 33.5 L MCV 91.5 MCH 29.5 MCHC 32.2 RDW Std Deviation 45.8 H RDW Coeff of Patricia 13.7 Plt Count 188 MPV 10.9 Immature Gran % (Auto) 0.400 Neut % (Auto) 76.8 H Lymph % (Auto) 6.6 L [place] % (Auto) 12.9 H Eos % (Auto) 2.7 Baso % (Auto) 0.6 Absolute Neuts (auto) 5.4 Absolute Lymphs (auto) 0.47 L Nucleated RBC % 0 PT 28.9 H INR 2.8 Sodium 136 Potassium 4.1 Chloride 100 Carbon Dioxide 30.0 Anion Gap 6 BUN 36 H Creatinine 1.29 Estim Creat Clear Calc 38.37 Est GFR (MDRD) Af Amer 70 Est GFR (MDRD) Non-Af 58 L BUN/Creatinine Ratio 27.9 H Glucose 102 Calcium 8.6 Cardiology Labs/Tests 07/27/20 05:00: WBC 7.1, RBC 3.66 L, Hgb 10.8 L, Hct 33.5 L, MCV 91.5, MCH 29.5, MCHC 32.2, Plt Count 188, MPV 10.9, Immature Gran % (Auto) 0.400, Neut % (Auto) 76.8 H, Lymph % (Auto) 6.6 L, [place] % (Auto) 12.9 H, Eos % (Auto) 2.7, Baso % (Auto) 0.6, Absolute Neuts (auto) 5.4, Nucleated RBC % 0 07/27/20 05:00: Sodium 136, Potassium 4.1, Chloride 100, Carbon Dioxide 30.0, Anion Gap 6, BUN 36 H, Creatinine 1.29, Est GFR (MDRD) Af Amer 70, Est GFR (MDRD) Non-Af 58 L, BUN/Creatinine Ratio 27.9 H, Glucose 102, Calcium 8.6 07/27/20 05:00: PT 28.9 H, INR 2.8 Rhythm: Wide-complex tachycardia: Concerning for underlying atrial flutter with a bundle branch block pattern Radiography Diagnostic Testing: Radiology Impression Echocardiogram 07/25/20 13:08 Interpretation Summary Limited views were obtained. Mildly dilated left ventricle. Severe global left ventricular systolic dysfunction. The estimated ejection fraction is 20 %. The left atrium is moderately enlarged. Stable appearing mechanical mitral valve apparatus. Stable appearing mechanical aortic valve apparatus. Small mobile echodensity in the submitral valvular apparatus compatible with redundant / flail chordae tendonae. Comment: Compared with the previous transthoracic echocardiogram from 01-12-2020: There are similar type changes. Ordering Physician: Emanuel Hough Referring Physician: Lawrence Cross Performed By: Adele Pedro, MIKY, RVT Physical Exam Const alert, oriented x3 and healthy appearing Orientation / Consciousness: awake HEENT normocephalic, head/scalp atraumatic and hearing grossly normal bilaterally Eyes PERRL, EOMs intact bilaterally, conjunctivae normal and no scleral icterus Neck full ROM, supple, no JVD and no carotid bruits Chest inspection of chest normal Chest Narrative: Defibrillator in place Resp normal respiratory effort and clear to auscultation bilaterally Cardio Palpation: normal PMI and abnormal PMI Rate: tachycardic Rhythm: regular rhythm and abnormal rhythm irregularly irregular Heart Sounds: S1 normal, S2 normal and prosthetic sounds crisp prosthetic S1 and crisp prosthetic S2 Peripheral Pulses: pulses 2+ throughout GI normal to inspection, nondistended, normoactive bowel sounds Extremity normal to inspection and no clubbing, cyanosis or edema Skin no rashes or lesions noted Psych mental status grossly normal Assessment & Plan Assessment/Plan (1) Atrial fibrillation with RVR: PLAN: The patient's underlying rhythm has been evaluated with ICD interrogation. Based upon the ICD interrogation the consensus was the underlying rhythm appeared to be an atrial dysrhythmia potentially atrial flutter with a bundle branch block pattern. At the moment the patient will continue rate control therapy and antiarrhythmic therapy and anticoagulant therapy. As the patient has continued with episodes of his wide-complex tachycardia the consensus is to proceed with not only medical therapy but an attempt at regaining sinus rhythm with a synchronized biphasic DC cardioversion. The procedure and risks have been discussed with the patient. He is agreeable to this approach. The patient may also need to return to electrophysiology for further evaluation/recommendations on his recurrent atrial dysrhythmia despite medical therapy superimposed upon his underlying cardiomyopathy, etc. (2) Ventricular tachycardia: PLAN: The patient presented with wide-complex dysrhythmias. Again based upon his ICD in the interrogation and reviewed the information it appeared the consensus was that his underlying rhythm was compatible with an atrial dysrhythmia such as atrial flutter with the patient's underlying bundle branch block pattern. The patient is continuing medical management as noted above. His ICD appears to be functioning appropriately. (3) ICD (implantable cardioverter-defibrillator) in place: PLAN: The patient's ICD did demonstrate that the patient's battery longevity is approximately 5 years with a backup VVI mode at 40 bpm and he has been ventricular pacing at approximately 0.6% of the time. His VT zone detection rate was set at 188. (4) Cardiomyopathy: QUALIFIERS: Cardiomyopathy type: unspecified Qualified Code(s): I42.9 - Cardiomyopathy, unspecified PLAN: The patient does have an underlying cardiomyopathy. His left ventricular wall motion and systolic function has been reassessed with a transthoracic echocardiogram. The results are noted below. The patient will need to continue medical management with adjustment as tolerated. (5) S/P MVR (mitral valve replacement): PLAN: The patient has a history of MVR. Based upon his echocardiographic study his mechanical mitral valve apparatus appeared to be stable. He will continue AHA antibiotic prophylaxis and anticoagulant therapy. (6) S/P AVR (aortic valve replacement): PLAN: The patient has a history of AVR. Based upon his echocardiographic study his mechanical aortic valve apparatus appeared to be stable. He will continue AHA antibiotic prophylaxis and anticoagulant therapy. (7) NSTEMI, initial episode of care: PLAN: The patient has an normal cardiac enzymes. He has a history of abnormal cardiac enzymes. At the moment the consensus is that this is secondary-a type II event-to his cardiac dysrhythmia superimposed upon his underlying cardiomyopathy. He will continue medical management at this time. Procedure Criteria Type of Procedure Procedure Type: Elective Elective Risks - COVID COVID Risk Discussion: The surgeon/proceduralist and patient have discussed in detail the risk of exposure to and/or potential harm posed by the COVID-19 virus with having a surgery/procedure at this time versus the risk of delaying the surgery/procedure. It is not possible to know either the risk of delaying the surgery or procedure or chance of getting an infection with perfect accuracy, but a joint decision was made between the patient and the surgeon/proceduralist to proceed at this time with the scheduled surgery/procedure as indicated on the consent form.
[2020-07-27] MEDS: Etomidate 20 MG/10 ML Vial IV (09:36)
--- NOTE | 2020-07-27 09:36 | NURSING ---
dr. doyle and Dr. Vigil in to startt cardioversion meds given
--- NOTE | 2020-07-27 09:43 | EKG12_ITS ---
Test Reason : A-FIB Blood Pressure : / mmHG Vent. Rate : 059 BPM Atrial Rate : 059 BPM P-R Int : 208 ms QRS Dur : 176 ms QT Int : 562 ms P-R-T Axes : 070 -51 132 degrees QTc Int : 556 ms Sinus bradycardia Left bundle branch block Abnormal ECG When compared with ECG of 26-JUL-2020 11:48, MANUAL COMPARISON REQUIRED, DATA IS UNCONFIRMED Confirmed by SVETLANA IRIZARRY, KENNETH ([id number]), deputy editor in chief ARY COLE ([id number]) on 07/28/2020 12:47:21 PM Referred By: DR. CARUSO Confirmed By:KENNETH MOTA MD
--- NOTE | 2020-07-27 09:44 | NURSING ---
cardioversion completed patient awake now talking to dr. doyle
--- NOTE | 2020-07-27 09:49 | PRO.PCM_ITS ---
Procedure Report Date of Procedure: 07/27/20 CONSCIOUS SEDATION REPORT DATE OF SERVICE: July 27, 2020 BRIEF HISTORY OF PRESENT ILLNESS: The patient is a 74-year-old male, currently admitted to [facility], after presenting with symptomatic atrial flutter. The patient is currently being medically managed with the assistance of cardiology. His last surface echocardiogram revealed an ejection fraction of approximately 20%. The patient is anticoagulated at baseline on Coumadin. His INR was noted to be 2.8 this morning. The patient denies any prior anesthetic complications. PHYSICAL EXAMINATION: VITAL SIGNS: Reviewed and were acceptable. GENERAL: The patient is a thin male, in no apparent distress, speaking in full sentences. HEENT: Normocephalic, atraumatic. Mucous membranes are moist and pink. Good mouth opening noted. Trachea is midline. Good neck mobility. CHEST: S1, S2 irregularly irregular. No murmurs, rubs or gallops were noted. LUNGS: Clear to auscultation bilaterally without appreciable wheezes, rales or rhonchi. ABDOMEN: Soft, nontender, nondistended. Positive bowel sounds. EXTREMITIES: There is no clubbing, cyanosis or edema. ASA Class: II DESCRIPTION OF PROCEDURE: After confirmation of informed consent, the patient's anesthesia plan was reviewed in detail. Etomidate was chosen. Risks and benefits were reviewed and the patient agreed to proceed. At 0936, the patient was given 6 mg of etomidate. The patient achieved an appropriate level of sedation and was given a 50 joule synchronized cardioversion by Dr. Catherine at the bedside. This was successful in achieving normal sinus rhythm. The patient was monitored until 0946, at which time he reached his baseline mental status and function. The patient tolerated the procedure well. COMPLICATIONS: None ESTIMATED BLOOD LOSS: None RECOMMENDATIONS: Okay to recover in usual fashion. Procedures Pulmonary CF Procedures Pulmonary: [id number] Con Sedation
--- NOTE | 2020-07-27 09:50 | NURSING ---
called Lynne let her know procedure completed and let her know that he did good with procedure talking now
--- NOTE | 2020-07-27 10:01 | EKG12_ITS ---
Test Reason : Blood Pressure : / mmHG Vent. Rate : 097 BPM Atrial Rate : 028 BPM P-R Int : 000 ms QRS Dur : 190 ms QT Int : 500 ms P-R-T Axes : 000 -55 136 degrees QTc Int : 635 ms Wide QRS rhythm Left axis deviation Left bundle branch block pattern Abnormal ECG Confirmed by ZULY IRIZARRY, SAKINA ([id number]), editor book ARY COLE ([id number]) on 07/27/2020 1:23:02 PM Referred By: VIDAL Confirmed By:SAKINA CARUSO MD
--- NOTE | 2020-07-27 10:01 | CARDIOVERS_ITS ---
Cardioversion Cardioversion: Date: 07-27-2020 Procedure: Synchronized Biphasic DC Cardioversion Indications: Atrial flutter Consent: [Per the Patient] Anesthesia: per Dr. Vigil of pulmonology and critical care medicine with etomidate 6 mg IV push total Procedure: Synchronized Biphasic DC Cardioversion: 50 J x 1: Result: Sinus rhythm Complications: no apparent complications This note was generated with [employer] software. It may contain incorrect words, spelling, and punctuation that were not noted in checking the note before signing.
[2020-07-27] MEDS: Amiodarone 360 MG in Dextrose 5% Viaflo Bag 192.8 ML 16.7 MG CONT INF ×2 (10:29→22:21)
[2020-07-27] MEDS: Potassium Chloride Oral Tablet 20 MEQ PO (10:34)
[2020-07-27] MEDS: Furosemide 20 MG Tablet PO ×2 (10:34→18:22)
[2020-07-27] MEDS: Carvedilol 12.5 MG Tablet PO ×2 (10:35→21:25)
[2020-07-27] MEDS: SACUBITRIL/VALSARTAN 24/26 MG TABLET 1 EACH PO ×2 (10:35→21:21)
--- NOTE | 2020-07-27 14:47 | PN.HOSP_ITS ---
Subjective Subjective Patient seen and examined. He feels well and has no complaints today. Review of systems otherwise negative. He remains on the amiodarone. Plan is for cardioversion today. Blood pressure was running a little bit low this morning in the 90s systolic. Objective Data Objective Data Vital Signs: Vital Signs Temp Pulse Resp BP Pulse Ox 98.3 F 57 L 12 93/57 L 94 07/27/20 14:01 07/27/20 14:01 07/27/20 14:01 07/27/20 14:01 07/27/20 14:01 Oxygen Flow Rate (L/min) [1 ( 2 Initial Baseline)] Oxygen Flow Rate (L/min) 2 Oxygen Delivery Method [1 ( Nasal Cannula Initial Baseline)] Oxygen Delivery Method Room Air Weight: 119 lb 4.321 oz Body Mass Index (BMI) 21.7 Intake & Output: Intake and Output for Last 24 Hours 07/25/20 07/26/20 07/27/20 23:59 23:59 23:59 Intake Total 790.96 / 807.66 1201.20 / 1217.90 665.25 / 665.25 Output Total 1300 / 1300 1400 / 1400 550 / 550 Balance -509.04 / -492.34 -198.80 / -182.10 115.25 / 115.25 Lab / Micro Data Result Diagrams: 07/27/20 05:00 07/27/20 05:00 Labs: Laboratory Results - last 24 hr 07/27/20 07/27/20 07/27/20 05:00 05:00 05:00 WBC 7.1 RBC 3.66 L Hgb 10.8 L Hct 33.5 L MCV 91.5 MCH 29.5 MCHC 32.2 RDW Std Deviation 45.8 H RDW Coeff of Patricia 13.7 Plt Count 188 MPV 10.9 Immature Gran % (Auto) 0.400 Neut % (Auto) 76.8 H Lymph % (Auto) 6.6 L [place] % (Auto) 12.9 H Eos % (Auto) 2.7 Baso % (Auto) 0.6 Absolute Neuts (auto) 5.4 Absolute Lymphs (auto) 0.47 L Nucleated RBC % 0 PT 28.9 H INR 2.8 Sodium 136 Potassium 4.1 Chloride 100 Carbon Dioxide 30.0 Anion Gap 6 BUN 36 H Creatinine 1.29 Estim Creat Clear Calc 38.37 Est GFR (MDRD) Af Amer 70 Est GFR (MDRD) Non-Af 58 L BUN/Creatinine Ratio 27.9 H Glucose 102 Calcium 8.6 Physical Exam Const alert, oriented x3 and no apparent distress General Appearance: cooperative Exam Limitations: no limitations HEENT normocephalic, head/scalp atraumatic, hearing grossly normal bilaterally and moist oral mucous membranes Head and Scalp: normocephalic Eyes PERRL, EOMs intact bilaterally and conjunctivae normal Neck no lymphadenopathy, supple and no JVD Resp normal respiratory effort, no retractions, no use of accessory muscles and clear to auscultation bilaterally Cardio S1 normal heart sound, S2 normal heart sound and no murmurs Cardio Narrative: tachycardic GI normal to inspection, nondistended, normoactive bowel sounds, soft to palpation, non-tender and non-distended Extremity normal to inspection, full ROM and no clubbing, cyanosis or edema Peripheral Pulses: Yes pulses 2+ throughout Skin no rashes or lesions noted Neuro oriented x3 Sensorium / Orientation: awake and alert Psych affect normal Assessment & Plan Assessment/Plan (1) Ventricular tachycardia: (2) NSTEMI, initial episode of care: PLAN: #Ventricular tachycardia * still on amiodarone drip. On oral carvedilol * cardiology on board. * on coumadin. INR is 2.8 today * he has an ICD in place * for cardioversion today * #Nonstemi * initial troponin was 0.536, trended up slightly to 0.547 and then trended down to 0.516. * on aspirin * on coumadin. INR is 2.8 today. * cardiology on board. Per cardiology, this may be due to a type 2 demand ischemia, likely due to tachycardia * conservative management for now * #history of mitral valve and aortic valve replacement * on coumadin. INR is therapeutic * #CKD stage 3b: CR is 1.22 today. Will trend and monitor #Acute on chronic HFrEF * On Entresto and IV Lasix 40 mg twice daily. * BNP was 2118 on admission. * Monitor intake and output. Fluid restriction 1500 cc daily. * last known EF was 20%. * DVT prophylaxis: On Coumadin. INR therapeutic. CODE STATUS: DNR CCA no intubation * Visit Charges Inpatient E&M: 45223 Subs Hosp L3
[2020-07-27] MEDS: Jantoven 2 MG Tablet PO (18:22)
[2020-07-28] VITALS (15 sets, daily range): BP systolic 92–124; BP diastolic 55–73; PULSE 53–63; RESP 15–22; TEMP 36.6–36.8; O2SAT 92–97
[2020-07-28 07:20] LABS: Absolute Neutrophil Count 4.9 X10^3/uL (2.0-7.7); Basophil# 0.05 X10^3/uL; Basophil% 0.8 % (0-1); Differential Indicated SCAN CRITERIA MET; Eosinophils% 3.1 % (0-5); Hematocrit 31.5 % (40-54); Hemoglobin 10.1 g/dL (13.0-16.5); Lymphocyte % 7.6 % (19-41); Mean Corp Hgb Conc 32.1 g/dL (32-36); Mean Corpuscular Hgb 29.4 pg (27.0-32.0); Mean Corpuscular Volume 91.6 fL (80-94); Mean Platelet Vol. 10.9 fl (6.2-12.0); Monocyte# 0.86 X10^3/uL; Monocyte% 13.1 % (0-10); NRBC Flagged by Analyzer 0 % (0-5); Neutrophil # 4.92 X10^3/uL (2.7-7.7); Neutrophil % 75.1 % (47-70); POSITIVE DIFFERENTIAL YES; Platelet Count 186 K/mm3 (150-450); RBC Distribution Width SD 46.7 fl (35.1-43.9); Red Blood Count 3.44 M/mm3 (4.6-6.2); White Blood Count 6.6 K/mm3 (4.4-11.0)
[2020-07-28 07:41] LABS: Anion Gap 7 (5-15); BUN 41 mg/dL (7-18); BUN/Creat Ratio 30.4 RATIO (10-20); Calcium,Total 8.7 mg/dL (8.5-10.1); Chloride 100 mmol/L (98-107); Creatinine, Serum 1.35 mg/dL (0.70-1.30); EST Glomerular Filtration Rate 55 mL/min (>60); Est Glom Filt Rate - Afr Amer 66 mL/min (>60); Estimated Creatinine Clearance 37.07 ml/min; Glucose 99 mg/dL (74-106); Potassium 4.3 mmol/L (3.5-5.1); Sodium Level 135 mmol/L (136-145)
[2020-07-28 07:54] LABS: Platelet Estimate ADEQUATE (ADEQ); Red Cell Morphology NORM C+C NORMAL (NORM C&C)
--- NOTE | 2020-07-28 08:34 | PN.CARD_ITS ---
Subjective Subjective The patient has been resting comfortably in the supine position. He has no new acute complaints. Objective Data Vital Signs: Vital Signs Temp Pulse Resp BP Pulse Ox 98.2 F 54 L 18 99/56 L 92 07/28/20 04:00 07/28/20 07:00 07/28/20 07:00 07/28/20 07:00 07/28/20 04:00 Oxygen Flow Rate (L/min) [1 ( 2 Initial Baseline)] Oxygen Flow Rate (L/min) 2 Oxygen Delivery Method [1 ( Nasal Cannula Initial Baseline)] Oxygen Delivery Method Room Air Weight: 121 lb 7.595 oz Body Mass Index (BMI) 21.7 Intake & Output: Intake and Output for Last 24 Hours 07/26/20 07/27/20 07/28/20 23:59 23:59 23:59 Intake Total 1201.20 / 1217.90 1324.30 / 1341.00 133.6 / 133.6 Output Total 1400 / 1400 1400 / 1400 500 / 500 Balance -198.80 / -182.10 -75.70 / -59.00 -366.4 / -366.4 Lab / Micro Data Result Diagrams: 07/28/20 05:38 07/28/20 05:38 Labs: Laboratory Results - last 24 hr 07/28/20 07/28/20 05:38 05:38 WBC 6.6 RBC 3.44 L Hgb 10.1 L Hct 31.5 L MCV 91.6 MCH 29.4 MCHC 32.1 RDW Std Deviation 46.7 H RDW Coeff of Patricia 14.0 Plt Count 186 MPV 10.9 Immature Gran % (Auto) 0.300 Neut % (Auto) 75.1 H Lymph % (Auto) 7.6 L [place] % (Auto) 13.1 H Eos % (Auto) 3.1 Baso % (Auto) 0.8 Absolute Neuts (auto) 4.9 Absolute Lymphs (auto) 0.50 L Nucleated RBC % 0 Differential Comment Platelet Estimate ADEQUATE RBC Morphology NORM C+C Sodium 135 L Potassium 4.3 Chloride 100 Carbon Dioxide 28.0 Anion Gap 7 BUN 41 H Creatinine 1.35 H Estim Creat Clear Calc 37.07 Est GFR (MDRD) Af Amer 66 Est GFR (MDRD) Non-Af 55 L BUN/Creatinine Ratio 30.4 H Glucose 99 Calcium 8.7 Cardiology Labs/Tests 07/28/20 05:38: WBC 6.6, RBC 3.44 L, Hgb 10.1 L, Hct 31.5 L, MCV 91.6, MCH 29.4, MCHC 32.1, Plt Count 186, MPV 10.9, Immature Gran % (Auto) 0.300, Neut % (Auto) 75.1 H, Lymph % (Auto) 7.6 L, [place] % (Auto) 13.1 H, Eos % (Auto) 3.1, Baso % (Auto) 0.8, Absolute Neuts (auto) 4.9, Nucleated RBC % 0 07/28/20 05:38: Sodium 135 L, Potassium 4.3, Chloride 100, Carbon Dioxide 28.0, Anion Gap 7, BUN 41 H, Creatinine 1.35 H, Est GFR (MDRD) Af Amer 66, Est GFR (MDRD) Non-Af 55 L, BUN/Creatinine Ratio 30.4 H, Glucose 99, Calcium 8.7 Rhythm: Sinus rhythm/sinus bradycardia Physical Exam Const alert, oriented x3 and healthy appearing Orientation / Consciousness: awake HEENT normocephalic, head/scalp atraumatic and hearing grossly normal bilaterally Eyes PERRL, EOMs intact bilaterally, conjunctivae normal and no scleral icterus Neck full ROM, supple, no JVD and no carotid bruits Chest inspection of chest normal Chest Narrative: Defibrillator in place Resp normal respiratory effort and clear to auscultation bilaterally Cardio Palpation: normal PMI and abnormal PMI Rate: bradycardia Rhythm: regular rhythm Heart Sounds: S1 normal, S2 normal and prosthetic sounds crisp prosthetic S1 and crisp prosthetic S2 Peripheral Pulses: pulses 2+ throughout GI normal to inspection, nondistended, normoactive bowel sounds Extremity normal to inspection and no clubbing, cyanosis or edema Skin no rashes or lesions noted Psych mental status grossly normal Assessment & Plan Assessment/Plan (1) Atrial fibrillation with RVR: PLAN: The patient's underlying rhythm has been evaluated with ICD interrogation. Based upon the ICD interrogation the consensus was the underlying rhythm appeared to be an atrial dysrhythmia potentially atrial flutt er with a bundle branch block pattern. The patient has subsequently undergone further evaluation/therapy with synchronized biphasic DC cardioversion. He had return to sinus rhythm/sinus bradycardia. The patient will continue medical therapy. His IV amiodarone will be discontinued and he will restart oral amiodarone with a tapering dose. The patient may also need to return to electrophysiology for further evaluation/recommendations on his recurrent atrial dysrhythmia despite medical therapy superimposed upon his underlying cardiomyopathy, etc. (2) Ventricular tachycardia: PLAN: The patient presented with wide-complex dysrhythmias. Again based u christian his ICD in the interrogation and reviewed the information it appeared the consensus was that his underlying rhythm was compatible with an atrial dysrhythmia such as atrial flutter with the patient's underlying bundle branch block pattern. The patient is continuing medical management as noted above. His ICD appears to be functioning appropriately. (3) ICD (implantable cardioverter-defibrillator) in place: PLAN: The patient's ICD did demonstrate that the patient's battery longevity is approximately 5 years with a backup VVI mode at 40 bpm and he has been ventricular pacing at approximately 0.6% of the time. His VT zone detection rate was set at 188. (4) Cardiomyopathy: QUALIFIERS: Cardiomyopathy type: unspecified Qualified Code(s): I42.9 - Cardiomyopathy, unspecified PLAN: The patient does have an underlying cardiomyopathy. His left ventricular wall motion and systolic function has been reassessed with a transthoracic echocardiogram. The results are noted below. The patient will need to continue medical management with adjustment as tolerated. (5) S/P MVR (mitral valve replacement): PLAN: The patient has a history of MVR. Based upon his echocardiographic study his mechanical mitral valve apparatus appeared to be stable. He will continue AHA antibiotic prophylaxis and anticoagulant therapy. (6) S/P AVR (aortic valve replacement): PLAN: The patient has a history of AVR. Based upon his echocardiographic study his mechanical aortic valve apparatus appeared to be stable. He will continue AHA antibiotic prophylaxis and anticoagulant therapy. (7) NSTEMI, initial episode of care: PLAN: The patient has an normal cardiac enzymes. He has a history of abnormal cardiac enzymes. At the moment the consensus is that this is secondary-a type II event-to his cardiac dysrhythmia superimposed upon his underlying cardiomyopathy. He will continue medical management at this time. Addt'l Comments The patient's case has been discussed and reviewed with the patient at length. The patient's case has also been discussed and reviewed with Dr. Jean. This note was generated using a voice recognition system and there may be incorrect words, spelling or punctuation that were not noted when reviewing the office note prior to saving.
[2020-07-28] MEDS: Amiodarone 200 MG Tablet PO ×2 (09:44→12:55)
[2020-07-28] MEDS: Carvedilol 12.5 MG Tablet PO (09:44)
[2020-07-28] MEDS: SACUBITRIL/VALSARTAN 24/26 MG TABLET 1 EACH PO (09:45)
[2020-07-28] MEDS: Furosemide 20 MG Tablet PO (09:45)
[2020-07-28] MEDS: Potassium Chloride Oral Tablet 20 MEQ PO (09:45)
[2020-07-28] MEDS: 0.9% Saline Lock 10 ML Syringe IV (10:18)
--- NOTE | 2020-07-28 13:40 | PCM.DC.SUM ---
Providers Date of Admission: 07/25/20 Primary Care Physician: Dr. Lawrence Cross MD Consultations 07/25/20 12:50 Consult: Cardiology Routine Consulting Provider: Emanuel Hough Reason for Consult: ventricular tachycardia, afib EMERGENT Consult: No MD Notified: Yes Date Notified:: 07/25/20 Time Notified: 11:56 Method of Notification: Text Reason For Visit: NONSTEMI, VENTRICULAR TACHYCARDIA Diagnosis Discharge Diagnosis (1) Atrial fibrillation with RVR: Status: Chronic Code(s): I48.91 - Unspecified atrial fibrillation (2) Ventricular tachycardia: Status: Acute Code(s): I47.2 - Ventricular tachycardia (3) ICD (implantable cardioverter-defibrillator) in place: Status: Chronic Code(s): Z95.810 - Presence of automatic (implantable) cardiac defibrillator (4) Cardiomyopathy: Status: Chronic Code(s): I42.9 - Cardiomyopathy, unspecified Qualifiers: Cardiomyopathy type: unspecified Qualified Code(s): I42.9 - Cardiomyopathy, unspecified (5) S/P MVR (mitral valve replacement): Status: Chronic Code(s): Z95.2 - Presence of prosthetic heart valve (6) S/P AVR (aortic valve replacement): Status: Chronic Code(s): Z95.2 - Presence of prosthetic heart valve (7) NSTEMI, initial episode of care: Status: Acute Code(s): I21.4 - Non-ST elevation (NSTEMI) myocardial infarction Medications at Discharge Home Medications warfarin 2 mg PO SUTUWETHSA 01/27/20 amiodarone 200 mg tablet 200 mg PO DAILY #90 tab 04/20/20 furosemide 40 mg tablet 40 mg PO DAILY #90 tab 04/20/20 sacubitril 24 mg-valsartan 26 mg tablet 1 tablet PO BID #60 tablet 06/13/20 potassium chloride 20 meq PO DAILY 07/25/20 warfarin 1 mg PO MOFR 07/25/20 amiodarone 200 mg PO UD #180 tab 07/28/20 carvedilol 12.5 mg PO BID #60 tab 07/28/20 Hospital Course Operations None Procedures 2-D Echocardiogram and Cardioversion Summary of Care Provided Minutes Spent on Discharge: 45 Hospital Course: PETER ROMERO is a 74 M who presents via the ED on 07/25/2020 with a complaint of shortness of breath and epigastric discomfort. SYmptoms ahd been going on for 3-4 days prior to admission, but denied any cough, fever or chills. Review of systems was otherwise negative. On arrival in the ED, he was noted to be tachycardic with HR in the 150s, and had a wide complex tachycardia. He was evaluated by the coating mixer tender in the ED, and started on amiodarone drip. Plan was to cardiovert him in the ED, but he converted to sinus rhythm before this could be done. In the lab, CBC showed hemoglobin of 11.6 with WBC of 8.9 and platelets of 230. EKG showed a left bundle branch block with a heart rate of [address] depressions in the lateral leads. Initial troponin was 0.536. He has been admitted to be managed for non-STEMI and ventricular tachycardia. Cardiology was consulted. He was continued on the amiodarone drip. 2D echo done showed EF of 20% with ICD or pacer leads in the right ventricle and severe global left ventricular systolic dysfunction with mildly dilated left ventricle and a stable appearing mechanical aortic valve and mechanical mitral valve. His ICD was interrogated and showed the underlying rhythm being in atrial dysrhythmia potentially atrial flutter with a bundle branch block pattern. Of note, his non-STEMI was thought to also be due to the tachycardia and resultant demand ischemia in the management was conservative. ICD interrogation showed patient's battery longevity was approximately 5 years. Patient still went in and out of ventricular tachycardia so he had cardioversion done on 07/27/2020. After the cardioversion, patient went into normal sinus rhythm. He was weaned off of amiodarone and switch to oral amiodarone. Patient was discharged home on 07/28/2020 and is to follow-up with his primary care doctor and also to follow-up with the property developer in [place]. Patient was seen and examined prior to discharge. He felt well and had no complaints. Review of systems otherwise negative. Labs and vitals reviewed. Medication reviewed and reconciled. Physical Exam Const alert, oriented x3 and no apparent distress General Appearance: cooperative Exam Limitations: no limitations HEENT normocephalic, head/scalp atraumatic, hearing grossly normal bilaterally and moist oral mucous membranes Eyes PERRL, EOMs intact bilaterally and conjunctivae normal Neck no lymphadenopathy, supple and no JVD Resp normal respiratory effort, no retractions, no use of accessory muscles and clear to auscultation bilaterally Cardio regular rate, regular rhythm, S1 normal heart sound, S2 normal heart sound and no murmurs GI normal to inspection, nondistended, normoactive bowel sounds, soft to palpation, non-tender and non-distended Extremity normal to inspection, full ROM and no clubbing, cyanosis or edema Skin no rashes or lesions noted Neuro oriented x3 Sensorium / Orientation: awake and alert Psych affect normal ABG / Lab / Microbiology Data Result Diagrams: 07/28/20 05:38 07/28/20 05:38 Laboratory: Laboratory Results - last 24 hr 07/28/20 07/28/20 05:38 05:38 WBC 6.6 RBC 3.44 L Hgb 10.1 L Hct 31.5 L MCV 91.6 MCH 29.4 MCHC 32.1 RDW Std Deviation 46.7 H RDW Coeff of Patricia 14.0 Plt Count 186 MPV 10.9 Immature Gran % (Auto) 0.300 Neut % (Auto) 75.1 H Lymph % (Auto) 7.6 L [place] % (Auto) 13.1 H Eos % (Auto) 3.1 Baso % (Auto) 0.8 Absolute Neuts (auto) 4.9 Absolute Lymphs (auto) 0.50 L Nucleated RBC % 0 Differential Comment Platelet Estimate ADEQUATE RBC Morphology NORM C+C Sodium 135 L Potassium 4.3 Chloride 100 Carbon Dioxide 28.0 Anion Gap 7 BUN 41 H Creatinine 1.35 H Estim Creat Clear Calc 37.07 Est GFR (MDRD) Af Amer 66 Est GFR (MDRD) Non-Af 55 L BUN/Creatinine Ratio 30.4 H Glucose 99 Calcium 8.7 D/C Instructions Discharge Diet: 2000 mg Sodium Diet Discharge Activity: Return to Normal Activity Weight Bearing Status: Weight bearing as tolerated Call your doctor if you observe: Fever of 101 or Higher, Shortness of breath, Dizziness, Chest pain and Increased palpitations (irregular heartbeat) Meaningful Use Info Meaningful Use Diagnoses (Choose all that apply): AMI AMI/Post PCI/Angioplasty Aspirin given w/in 24hrs of arrival?: Yes ASA at discharge?: Yes Antiplatelet Therapy at Discharge:: Yes Statins at discharge?: Yes Bert/ARB at discharge?: Yes Beta Baylee at discharge?: Yes Done w/ Acute [place] measure.: Yes Documented LVEF (%): 20 Discharge Plan Admission Admit Date/Time: 07/25/20 12:01 Primary Reason for Your Visit: ventricular tachycardia, nonstemi Attending Provider: Jessica Jean Primary Care Provider: Lawrence Cross Consulting Providers: Emanuel Hough Instructions Patient Instructions: Implantable Cardioverter Defibrillator (ICD), What Is Atrial Flutter/Atrial Fibrillation?, Atrial Fibrillation Discharge Orders/Prescriptions Prescriptions: New carvedilol 12.5 mg Tablet 12.5 mg PO BID Qty: 60 RF: 1 amiodarone 200 mg Tablet 200 mg PO UD Qty: 180 RF: 1 Continued warfarin 2 MG tablet 2 mg PO SUTUWETHSA RF: 0 warfarin 1 mg Tablet 1 mg PO MOFR RF: 0 potassium chloride 20 mEq Tablet Extended Release 20 meq PO DAILY RF: 0 furosemide 40 mg tablet 40 mg PO DAILY Qty: 90 RF: 3 Entresto 24-26 mg tablet 1 tablet PO BID Qty: 60 RF: 11 Discontinued carvedilol 12.5 mg tablet 6.25 mg PO BID Qty: 180 RF: 3 No Action amiodarone 200 mg tablet 200 mg PO DAILY Qty: 90 RF: 3 Referrals / Follow Up: Lawrence Cross MD [Primary Care Provider] - Disposition Discharge Orders: Discharge Patient (Routine); Ordered 07/28/20 Ordered By: Dr. Jessica Jean Charges/Coding Visit Charges Inpatient E&M: 71788 Disch Hosp
--- NOTE | 2020-07-29 13:54 | CASEMGMT ---
Addendum entered by Wen Osman 07/29/20 14:19: Call back from pt's and she states pt has been doing 'pretty good' since discharge. states no suggestions regarding discharge instructions/medications. states pt has f/u with Dr. Cross scheduled and she states she will call cardiology this afternoon to get that appt scheduled as well. states no suggestions for [facility] and states that 'Everyone was super, so kind/helpful/nice and worked together.' voices no further questions/concerns/needs. John SOOD CM Original Note: BARRIE SERRANO Discharge F/U Phone Call LACE: 12 Strata: 3 Discharge date: 07/28/20 Call date: 07/29/20 Call time: 1355 Attempted to reach pt without success, message left for pt to call this RN CM back if/when able. John SOOD CM Admission dx: NSTEMI, Vtach
== END 2020-07-28 15:16 | disposition home or self-care (01) | DRG 280 ==
LOC: ED 10:15 → PCU 15:25
PROVIDERS: Internal Medicine Cardiovascular Disease; Admitting Provider Student in an Organized Health Care Education/Training Program; Emergency Provider Emergency Medicine; PCP Family Medicine; Visit Provider Student in an Organized Health Care Education/Training Program
DX: I47.2 Ventricular tachycardia (principal); I21.A1 Myocardial infarction type 2; I50.23 Acute on chronic systolic (congestive) heart failure; N18.32 Chronic kidney disease, stage 3b; I42.8 Other cardiomyopathies; I48.91 Unspecified atrial fibrillation; E78.5 Hyperlipidemia, unspecified; Z79.01 Long term (current) use of anticoagulants; Z79.899 Other long term (current) drug therapy; Z95.810 Presence of automatic (implantable) cardiac defibrillator; Z95.2 Presence of prosthetic heart valve; I25.2 Old myocardial infarction
CPT/HCPCS: 36415; 71045; 80048; 83735; 83880; 84100; 84484; 85025; 85610; 93005; 93308; 97162; 97166; 97530; 97802; 99251; 99284; A4216; G0463; J1940

== ENCOUNTER → 2020-09-08 08:19 | Outpatient (CLI) | payer MEDICARE, SELFPAY ==
[2020-08-08 13:59] VITALS: BMI 22.1
[2020-09-08 10:48] LABS: Anion Gap 7 (5-15); BUN 32 mg/dL (7-18); BUN/Creat Ratio 24.8 RATIO (10-20); Calcium,Total 8.5 mg/dL (8.5-10.1); Chloride 102 mmol/L (98-107); Creatinine, Serum 1.29 mg/dL (0.70-1.30); EST Glomerular Filtration Rate 58 mL/min (>60); Est Glom Filt Rate - Afr Amer 70 mL/min (>60); Glucose 153 mg/dL (74-106); Potassium 4.7 mmol/L (3.5-5.1); Sodium Level 135 mmol/L (136-145)
== END ==
PROVIDERS: PCP Family Medicine; Referring Provider Internal Medicine Cardiovascular Disease; Visit Provider Internal Medicine Cardiovascular Disease
DX: I50.31 Acute diastolic (congestive) heart failure (principal); R42 Dizziness and giddiness; I42.9 Cardiomyopathy, unspecified; N28.9 Disorder of kidney and ureter, unspecified
CPT/HCPCS: 36415; 80048

== ENCOUNTER → 2021-02-01 10:52 | Outpatient (CLI) | payer MEDICARE, SELFPAY ==
--- NOTE | 2021-02-01 10:58 | ECHOD_ITS ---
Reason For Study: CHF Procedure This was a 2D Doppler, Color Flow transthoracic echocardiogram. The study was technically difficult. Exam performed in department. Left Ventricle Normal LV size. Moderate concentric left ventricular hypertrophy. Moderate global left ventricular systolic dysfunction. The estimated ejection fraction is 30 %. Unable to assess diastolic dysfunction. Right Ventricle Normal RV size. ICD or pacer leads identified within the right ventricle. Normal systolic function. Atria The left atrium is moderately enlarged. Normal right atrium. ICD or pacer leads identified within the right atrium. No doppler evidence for ASD. Mitral Valve Small mobile echodensity in the submitral valvular apparatus compatible with redundant / flail chordae tendonae. Stable appearing mechanical mitral valve apparatus. Trivial transvalvular insufficiency of the mitral valve. Tricuspid Valve Normal tricuspid valve. Mild to moderate (1-2+) tricuspid valve insufficiency. Right ventricular systolic pressure estimated to be 68 mmHg. Aortic Valve Stable appearing mechanical aortic valve apparatus. Trivial transvalvular insufficiency of the aortic valve. Pulmonic Valve The pulmonic valve is not well visualized. Trivial pulmonic valve insufficiency. Great Vessels Mildly dilated aortic root. Pericardium/Pleural No pericardial effusion. MMode/2D Measurements & Calculations LVIDd: 4.9 cm IVSd: 1.4 cm LVOT diam: 2.1 cm LVIDs: 4.3 cm LVPWd: 1.4 cm LVOT area: 3.4 cm2 RVDd: 3.3 cm FS: 13.0 % Ao root diam: 4.1 cm LAV(MOD-bp): 95.0 ml LVAd ap4: 33.0 cm2 LAV(MOD-bp) Indexed: 63.7 ml/m2 LVLd ap4: 8.2 cm LAV(MOD-sp2): 82.3 ml EDV(MOD-sp4): 112.2 ml LAV(MOD-sp4): 98.3 ml EDV(sp4-el): 112.8 ml LVAs ap4: 23.6 cm2 LVLs ap4: 7.4 cm ESV(MOD-sp4): 64.6 ml ESV(sp4-el): 64.1 ml EF(MOD-sp4): 42.4 % EF(sp4-el): 43.2 % LVAd ap2: 35.8 cm2 SV(MOD-sp4): 47.6 ml SV(MOD-sp2): 59.5 ml LVLd ap2: 8.1 cm EDV(MOD-sp2): 132.2 ml EDV(sp2-el): 133.9 ml LVAs ap2: 25.3 cm2 LVLs ap2: 7.6 cm ESV(MOD-sp2): 72.8 ml ESV(sp2-el): 71.0 ml EF(MOD-sp2): 45.0 % SV(sp4-el): 48.7 ml LA dimension(2D): 4.7 cm LA A4 area: 27.9 cm2 RA A4 area: 18.6 cm2 Doppler Measurements & Calculations MV E max peña: 149.4 cm/sec MV V2 max: 152.1 cm/sec MV P1/2t max peña: 116.6 cm/sec MV max P.3 mmHg MV P1/2t: 150.7 msec MV V2 mean: 50.3 cm/sec MV mean P.6 mmHg MV dec slope: 226.7 cm/sec2 MV V2 VTI: 47.2 cm MVA(P1/2t): 1.5 cm2 MVA(VTI): 1.9 cm2 Ao V2 max: 174.9 cm/sec LV V1 max: 141.6 cm/sec SV(LVOT): 89.3 ml Ao max P.2 mmHg LV V1 max P.1 mmHg Ao V2 mean: 115.6 cm/sec LV V1 mean P.8 mmHg Ao mean P.1 mmHg LV V1 mean: 90.3 cm/sec Ao V2 VTI: 31.2 cm LV V1 VTI: 25.9 cm GRAYSON(I,D): 2.9 cm2 GRAYSON(V,D): 2.8 cm2 PA V2 max: 118.8 cm/sec TR max peña: 387.6 cm/sec TR max P.1 mmHg ECHO/Echo Complete Interpretation Summary The study was technically difficult. Moderate global left ventricular systolic dysfunction. The estimated ejection fraction is 30 %. Moderate concentric left ventricular hypertrophy. The left atrium is moderately enlarged. Stable appearing mechanical mitral valve apparatus. Small mobile echodensity in the submitral valvular apparatus compatible with re dundant / flail chordae tendonae. Trivial transvalvular insufficiency of the mitral valve. Mild to moderate (1-2+) tricuspid valve insufficiency. Stable appearing mechanical aortic valve apparatus. Trivial transvalvular insufficiency of the aortic valve. Trivial pulmonic valve insufficiency. Mildly dilated aortic root. Right ventricular systolic pressure estimated to be 68 mmHg. Unable to assess diastolic dysfunction. ICD or pacer leads identified within the right atrium ICD or pacer leads identified within the right ventricle. Comment: Compared to the previous transthoracic echocardiogram from 01-12-2020: With respect to the mitral valve apparatus/submitral valve apparatus-there appeared to be similar f indings. Ordering Physician: Adelfo Catherine Referring Physician: MD Tay Lawrence Performed By: Carlyn Lange, ASAF
== END ==
PROVIDERS: PCP Family Medicine; Referring Provider Internal Medicine Cardiovascular Disease; Visit Provider Internal Medicine Cardiovascular Disease
DX: I50.31 Acute diastolic (congestive) heart failure (principal); Z95.2 Presence of prosthetic heart valve
CPT/HCPCS: 93306

== ENCOUNTER → 2021-02-07 09:53 | Outpatient (CLI) | payer MEDICARE, SELFPAY ==
[2021-02-07 10:31] LABS: Hematocrit 33.2 % (40-54); Hemoglobin 9.9 g/dL (13.0-16.5); Mean Corp Hgb Conc 29.8 g/dL (32-36); Mean Corpuscular Volume 87.1 fL (80-94); Mean Platelet Vol. 9.7 fl (6.2-12.0); Platelet Count 360 K/mm3 (150-450); RBC Distribution Width CV 14.6 % (11.6-14.6); RBC Distribution Width SD 46.5 fl (35.1-43.9); Red Blood Count 3.81 M/mm3 (4.6-6.2)
[2021-02-07 11:17] LABS: Anion Gap 6 (5-15); BUN 42 mg/dL (7-18); BUN/Creat Ratio 24.9 RATIO (10-20); Calcium,Total 8.9 mg/dL (8.5-10.1); Chloride 103 mmol/L (98-107); Creatinine, Serum 1.69 mg/dL (0.70-1.30); EST Glomerular Filtration Rate 42 mL/min (>60); Est Glom Filt Rate - Afr Amer 51 mL/min (>60); Glucose 124 mg/dL (74-106); Magnesium 2.2 mg/dL (1.6-2.6); Potassium 4.6 mmol/L (3.5-5.1); Sodium Level 137 mmol/L (136-145); T4 Total, Thyroxin 11.8 ug/dL (4.5-12.1); Thyroid Stim Hormone (TSH) 0.93 uIU/mL (0.358-3.74)
== END ==
PROVIDERS: PCP Family Medicine; Referring Provider Internal Medicine Cardiovascular Disease; Visit Provider Internal Medicine Cardiovascular Disease
DX: Z00.00 Encounter for general adult medical examination without abnormal findings (principal); I47.2 Ventricular tachycardia; I48.91 Unspecified atrial fibrillation; I50.31 Acute diastolic (congestive) heart failure; N28.9 Disorder of kidney and ureter, unspecified; I42.9 Cardiomyopathy, unspecified; E87.1 Hypo-osmolality and hyponatremia; Z79.01 Long term (current) use of anticoagulants; Z95.810 Presence of automatic (implantable) cardiac defibrillator
CPT/HCPCS: 36415; 80048; 83735; 83880; 84436; 84443; 85027

== ENCOUNTER 2021-02-07 10:58 | Emergency (ER) | payer MEDICARE, SELFPAY ==
[2021-02-07] VITALS (9 sets, daily range): BP systolic 71–103; BP diastolic 49–81; PULSE 42–122; RESP 12–24; TEMP 36.3; O2SAT 96–100; BMI 21.4
--- NOTE | 2021-02-07 11:25 | EKG12_ITS ---
Test Reason : POST CARDIOVERSION Blood Pressure : / mmHG Vent. Rate : 046 BPM Atrial Rate : 043 BPM P-R Int : 000 ms QRS Dur : 186 ms QT Int : 614 ms P-R-T Axes : 000 -87 112 degrees QTc Int : 537 ms Ventricular-paced rhythm Abnormal ECG When compared with ECG of 07-FEB-2021 11:07, MANUAL COMPARISON REQUIRED, DATA IS UNCONFIRMED Confirmed by SVETLANA IRIZARRY, KENNETH ([id number]), health editor ARY COLE ([id number]) on 02/21/2021 1:40:40 PM Referred By: OANH Confirmed By:KENNETH MOTA MD
--- NOTE | 2021-02-07 11:40 | RAD_ITS ---
STUDY: X-RAY CHEST REASON FOR EXAM: Male, 75 years old. Palpitations TECHNIQUE: Single AP portable view of the chest. COMPARISON: Comparison is made with prior study dated 07/25/2020. FINDINGS: EKG electrodes are seen. The lungs are clear and expanded. There is no demonstrated pleural abnormality. The patient is status post mitral valve replacement. Sternal cerclage wires are present from a prior sternotomy. Normal mediastinum and parth. Normal visualized pulmonary arteries. Normal visualized aortic arch and descending thoracic aorta. There are degenerative changes of the visualized thoracic spine. Normal visualized ribs, clavicles, and shoulders. There is no demonstrated abnormality of the visualized soft tissue structures of the upper abdomen. RAD/Chest 1 View (Portable) IMPRESSION: No acute abnormality is seen. Status post mitral valve replacement. Electronically Signed: Jayesh Gross MD at 12:20 EST , Service support ,
[2021-02-07 11:42] LABS: Absolute Lymphocyte Count 0.62 X10^3/uL (0.83-4.51); Absolute Neutrophil Count 4.3 X10^3/uL (2.0-7.7); Basophil# 0.07 X10^3/uL; Basophil% 1.2 % (0-1); Eosinophil# 0.16 X10^3/uL; Eosinophils% 2.8 % (0-5); Hematocrit 31.4 % (40-54); Hemoglobin 9.6 g/dL (13.0-16.5); Lymphocyte # 0.62 X10^3/ul (0.83-4.51); Lymphocyte % 10.8 % (19-41); Mean Corp Hgb Conc 30.6 g/dL (32-36); Mean Corpuscular Hgb 26.2 pg (27.0-32.0); Mean Corpuscular Volume 85.8 fL (80-94); Mean Platelet Vol. 9.9 fl (6.2-12.0); Monocyte# 0.52 X10^3/uL; Monocyte% 9.1 % (0-10); NRBC Flagged by Analyzer 0 % (0-5); Neutrophil % 75.2 % (47-70); Platelet Count 330 K/mm3 (150-450); RBC Distribution Width CV 14.6 % (11.6-14.6); RBC Distribution Width SD 45.7 fl (35.1-43.9); Red Blood Count 3.66 M/mm3 (4.6-6.2); White Blood Count 5.7 K/mm3 (4.4-11.0)
[2021-02-07] MEDS: 0.9% Normal Saline 1,000 ML 1000 ML IV (11:46)
--- NOTE | 2021-02-07 11:50 | EX.ED.DYSGE1 ---
HPI History of Present Illness Chief Complaint: Palpitations Informant: patient Onset/Context/Timing Onset: Yesterday Context: Gradual Onset Timing: Continuous Quality: Racing Location: Chest Worsened by: Nothing Relieved by: Nothing Narrative Narrative: Patient presents with palpitations that began yesterday. Patient states he felt like his heart was racing yesterday. Patient saw his silver solution mixer today who noted that the patient was having tachycardia today. Patient was then referred to the emergency department. Patient states nothing makes it better nothing makes it worse. Patient denies any chest pain. Patient denies any nausea or vomiting. Patient denies any diaphoresis. [facility] Medical History (Updated 02/07/21 @ 16:[address] Adelfo Catherine MD) Atrial fibrillation with RVR Atrial flutter Bacterial endocarditis Cardiomyopathy ICD (implantable cardioverter-defibrillator) in place residential current use of anticoagulant Home Medications warfarin 2 mg PO SUTUWETHSA 01/27/20 [History Last Taken Unknown] potassium chloride 20 meq PO DAILY 07/25/20 [History Last Taken Unknown] warfarin 1 mg PO MOFR 07/25/20 [History Last Taken Unknown] amiodarone 200 mg tablet 200 mg PO DAILY #90 tab 08/08/20 [Rx Last Taken Unknown] pravastatin 40 mg tablet 40 mg PO DAILY 11/25/20 [History Last Taken Unknown] carvedilol 6.25 mg tablet 6.25 mg PO BID #1 tab 01/04/21 [Rx Last Taken Unknown] furosemide 40 mg tablet 20 mg PO .COMPLEX tab 01/04/21 [History Last Taken Unknown] Allergy/AdvReac Type Severity Reaction Status Date / Time No Known Allergies Allergy Verified 02/07/21 11:07 Family History Father CVA (cerebral vascular accident) Surgical History History of mechanical aortic valve replacement (~2003) History of mitral valve replacement with mechanical valve (~2003) S/P AVR (aortic valve replacement) S/P MVR (mitral valve replacement) Social History Smoking Status: Never smoker alcohol intake: current details: occasional substance use type: does not use ROS ROS ED Constitutional Constitutional ED: Denies chills or fever(s) Eyes Eyes: Denies blurry vision or change in vision ENT ENT ED: Denies rhinorrhea or sore throat Cardiovascular Cardiovascular: Reports palpitations and racing heartbeat; Denies chest pain Respiratory/Chest Respiratory/Chest: Denies cough or dyspnea Gastrointestinal Gastrointestinal: Denies nausea or vomiting Genitourinary Genitourinary ED: Denies dysuria or hematuria Musculoskeletal Musculoskeletal: Denies back pain or neck pain Integumentary Denies abscess or rash Neurologic Neurologic: Denies headache(s) or weakness Allergic/Immunologic Allergic/Immunologic ED: Denies mouth swelling or urticaria EXAM Physical Exam Const Vital Signs: 02/07/21 11:00 02/07/21 11:25 02/07/21 12:07 Temperature 97.4 F L Temperature Source Temporal Pulse Rate 120 H 122 H Pulse Rate [1 (Initial Baseline)] Pulse Rate [2] Pulse Rate [3] Pulse Rate [4] Pulse Rate [5] Respiratory Rate 16 16 Respiratory Rate [1 (Initial Baseline)] Respiratory Rate [2] Respiratory Rate [3] Respiratory Rate [4] Respiratory Rate [5] Blood Pressure 86/65 L 92/73 Blood Pressure [1 (Initial Baseline)] Blood Pressure [2] Blood Pressure [3] Blood Pressure [4] Blood Pressure [5] Blood Pressure Mean 72 79 Pulse Ox 97 98 Oxygen Delivery Method Room Air Room Air Room Air Oxygen Delivery Method [2] Oxygen Delivery Method [3] Oxygen Delivery Method [4] Oxygen Delivery Method [5] Oxygen Flow Rate (L/min) [2] Oxygen Flow Rate (L/min) [3] Oxygen Flow Rate (L/min) [4] Fraction of Inspired Oxygen (FIO2) [2] Fraction of Inspired Oxygen (FIO2) [3] Fraction of Inspired Oxygen (FIO2) [4] Fraction of Inspired Oxygen (FIO2) [5] 02/07/21 14:27 02/07/21 15:11 02/07/21 15:59 Temperature Temperature Source Pulse Rate 121 H 120 H Pulse Rate [1 (Initial Baseline)] 120 H Pulse Rate [2] 52 L Pulse Rate [3] 46 L Pulse Rate [4] 46 L Pulse Rate [5] 42 L Respiratory Rate 16 20 H Respiratory Rate [1 (Initial Baseline)] 24 H Respiratory Rate [2] 15 Respiratory Rate [3] 15 Respiratory Rate [4] 17 Respiratory Rate [5] 17 Blood Pressure 96/69 98/74 Blood Pressure [1 (Initial Baseline)] 94/81 H Blood Pressure [2] 92/63 Blood Pressure [3] 77/51 L Blood Pressure [4] 82/49 L Blood Pressure [5] 71/58 L Blood Pressure Mean 78 Pulse Ox 97 99 Oxygen Delivery Method Room Air Oxygen Delivery Method [2] Nasal Cannula Oxygen Delivery Method [3] Nasal Cannula Oxygen Delivery Method [4] Nasal Cannula Oxygen Delivery Method [5] Room Air Oxygen Flow Rate (L/min) [2] 4 Oxygen Flow Rate (L/min) [3] 4 Oxygen Flow Rate (L/min) [4] 4 Fraction of Inspired Oxygen (FIO2) [2] 100 Fraction of Inspired Oxygen (FIO2) [3] 100 Fraction of Inspired Oxygen (FIO2) [4] 100 Fraction of Inspired Oxygen (FIO2) [5] 98 02/07/21 16:23 02/07/21 16:28 02/07/21 16:33 Temperature Temperature Source Pulse Rate 45 L 48 L 47 L Pulse Rate [1 (Initial Baseline)] Pulse Rate [2] Pulse Rate [3] Pulse Rate [4] Pulse Rate [5] Respiratory Rate 16 17 17 Respiratory Rate [1 (Initial Baseline)] Respiratory Rate [2] Respiratory Rate [3] Respiratory Rate [4] Respiratory Rate [5] Blood Pressure 71/58 L 81/51 L 85/58 L Blood Pressure [1 (Initial Baseline)] Blood Pressure [2] Blood Pressure [3] Blood Pressure [4] Blood Pressure [5] Blood Pressure Mean 62 Pulse Ox 98 98 96 Oxygen Delivery Method Room Air Room Air Room Air Oxygen Delivery Method [2] Oxygen Delivery Method [3] Oxygen Delivery Method [4] Oxygen Delivery Method [5] Oxygen Flow Rate (L/min) [2] Oxygen Flow Rate (L/min) [3] Oxygen Flow Rate (L/min) [4] Fraction of Inspired Oxygen (FIO2) [2] Fraction of Inspired Oxygen (FIO2) [3] Fraction of Inspired Oxygen (FIO2) [4] Fraction of Inspired Oxygen (FIO2) [5] 02/07/21 17:04 Temperature Temperature Source Pulse Rate 52 L Pulse Rate [1 (Initial Baseline)] Pulse Rate [2] Pulse Rate [3] Pulse Rate [4] Pulse Rate [5] Respiratory Rate 18 Respiratory Rate [1 (Initial Baseline)] Respiratory Rate [2] Respiratory Rate [3] Respiratory Rate [4] Respiratory Rate [5] Blood Pressure 103/64 Blood Pressure [1 (Initial Baseline)] Blood Pressure [2] Blood Pressure [3] Blood Pressure [4] Blood Pressure [5] Blood Pressure Mean Pulse Ox 98 Oxygen Delivery Method Oxygen Delivery Method [2] Oxygen Delivery Method [3] Oxygen Delivery Method [4] Oxygen Delivery Method [5] Oxygen Flow Rate (L/min) [2] Oxygen Flow Rate (L/min) [3] Oxygen Flow Rate (L/min) [4] Fraction of Inspired Oxygen (FIO2) [2] Fraction of Inspired Oxygen (FIO2) [3] Fraction of Inspired Oxygen (FIO2) [4] Fraction of Inspired Oxygen (FIO2) [5] Positive well nourished and well developed General Appearance ED: well developed HEENT Reports moist mucous membranes Neck supple and no JVD Resp normal respiratory effort and clear to auscultation bilaterally Cardio regular rhythm and no murmurs Rate: tachycardic GI normal to inspection, nondistended, normoactive bowel sounds and non-tender Palpation: soft Extremity normal to inspection General Extremety ED: Negative for edema or tenderness General Extremity: Negative for edema Neuro oriented x3, CN's II-XII intact bilaterally and no sensory deficits noted Sensorium / Orientation: alert Motor Exam: strength 5/5 throughout Psych mental status grossly normal Skin no rashes or lesions noted MDM MDM MDM Narrative Medical decision making narrative: Patient was given IV fluids here. EKG shows sinus tachycardia with a rate of 121. There is a right bundle branch block pattern noted. There are nonspecific ST-T wave changes in leads V3 and V4 as well as II, III, and aVF. CBC showed a mild anemia with a hemoglobin of 9.6 and hematocrit 31.4. Comprehensive metabolic profile shows a creatinine of 1.72 and BUN of 43. Creatinine was slightly increased from previous results. High-sensitivity troponin was elevated at 360. Urinalysis shows leukocyte esterase of 100 with 10-25 white blood cells. There were 0-5 epithelial cells. Portable 1 view chest x-ray was obtained. On my interpretation, lung aleman are clear. There is normal cardiac silhouette. Bony thorax is normal. There is no acute process noted. Radiologist also interpreted the x-ray and agrees. Case was discussed with Dr. Catherine. He reviewed the EKG from today as well as previous tracing from his office. He felt that this could be atrial flutter with 2:1 block. He recommended obtaining PT with INR and if this is therapeutic he recommended synchronized cardioversion. INR is 3.3. Patient was counseled on the risks and benefits of cardioversion. Patient was given the opportunity ask any questions. He had no further questions. He is agreeable to sedation and synchronized cardioversion. Patient signed informed consent. Patient was placed on nasal cannula oxygen. Patient was already on environmental monitoring technician. Patient was given 50 mg of propofol IV. When the patient was sedated, patient was cardioverted with 50 J synchronized cardioversion. Patient converted to a normal sinus rhythm. Repeat EKG was obtained. On my interpretation, it showed a paced rhythm with a rate of 48.. There is a left bundle branch block pattern noted. There are no acute ST or T wave changes. Patient feels better on reevaluation. Case was discussed with Dr. Catherine again. He noted that the patient's blood pressure is typically are in the 80s over 50s. He recommended increasing the patient's amiodarone to 3 tablets daily for 2 weeks then 2 tablets daily for 2 weeks and then 1 tablet daily. He will try to arrange for evaluation for possible EP study. Patient was instructed to follow-up in 1 to 2 weeks. Patient was instructed return if worse in any way.. Patient understood and was agreeable with the plan. All questions were answered. Lab Data Attestation: I reviewed the patient's lab results. Labs: Laboratory Results - last 24 hr 02/07/21 02/07/21 02/07/21 11:17 11:17 11:17 WBC 5.7 RBC 3.66 L Hgb 9.6 L Hct 31.4 L MCV 85.8 MCH 26.2 L MCHC 30.6 L RDW Std Deviation 45.7 H RDW Coeff of Patricia 14.6 Plt Count 330 MPV 9.9 Immature Gran % (Auto) 0.900 Neut % (Auto) 75.2 H Lymph % (Auto) 10.8 L [place] % (Auto) 9.1 Eos % (Auto) 2.8 Baso % (Auto) 1.2 H Absolute Neuts (auto) 4.3 Absolute Lymphs (auto) 0.62 L Nucleated RBC % 0 PT 32.3 H INR 3.3 Sodium 136 Potassium 4.6 Chloride 104 Carbon Dioxide 28.0 Anion Gap 4 L BUN 43 H Creatinine 1.72 H Estim Creat Clear Calc 27.85 Est GFR (MDRD) Af Amer 50 L Est GFR (MDRD) Non-Af 41 L BUN/Creatinine Ratio 25.0 H Glucose 127 H Calcium 8.8 Total Bilirubin 1.80 H AST 29 ALT 38 Alkaline Phosphatase 156 H Troponin I High Sens 360 H* Total Protein 6.9 Albumin 3.1 L Globulin 3.8 Albumin/Globulin Ratio 0.8 L Urine Color Urine Clarity Urine pH Ur Specific [place] Urine Protein Urine Glucose (UA) Urine Ketones Urine Occult Blood Urine Nitrite Urine Bilirubin Urine Urobilinogen Ur Leukocyte Esterase Urine RBC Urine WBC Ur Squamous Epith Cells Urine Bacteria Urine Mucus 02/07/21 02/07/21 11:59 13:14 WBC RBC Hgb Hct MCV MCH MCHC RDW Std Deviation RDW Coeff of Patricia Plt Count MPV Immature Gran % (Auto) Neut % (Auto) Lymph % (Auto) [place] % (Auto) Eos % (Auto) Baso % (Auto) Absolute Neuts (auto) Absolute Lymphs (auto) Nucleated RBC % PT INR Sodium Potassium Chloride Carbon Dioxide Anion Gap BUN Creatinine Estim Creat Clear Calc Est GFR (MDRD) Af Amer Est GFR (MDRD) Non-Af BUN/Creatinine Ratio Glucose Calcium Total Bilirubin AST ALT Alkaline Phosphatase Troponin I High Sens 360 H* Total Protein Albumin Globulin Albumin/Globulin Ratio Urine Color Yellow Urine Clarity Clear Urine pH 5.0 Ur Specific [place] 1.010 Urine Protein 15 H Urine Glucose (UA) Normal Urine Ketones Negative Urine Occult Blood Negative Urine Nitrite Negative Urine Bilirubin Negative Urine Urobilinogen Normal Ur Leukocyte Esterase 100 H Urine RBC 0 SEEN Urine WBC 10-25 SEEN Ur Squamous Epith Cells 0-5 SEEN Urine Bacteria 0 SEEN Urine Mucus 0 SEEN Radiography Chest X-Ray - ED: 1 View, Read by ED Physician and Read by Radiologist EKG Initial EKG: Interpretation: Sinus Tachycardia (121), RBBB and Non-Specific ST Changes Prior EKG tracings: available for review Prior: Changed (Previous EKG showed a left bundle branch block with paced rhythm.) Critical Care Time Critical Care Time: Yes Critical care time (excluding procedures): 30-74 minutes (33), Including time spent:, Discussing w/Patient &/or Family/Transmission Worker, Discussing w/Consultants and Performing Direct Patient Care at Bedside Discharge Plan Triage Chief Complaint: Palpitations ED Provider: Jeremiah Brown Dx/Rx/DC Orders Clinical Impression: Atrial flutter with rapid ventricular response Instructions: ED Atrial Flutter Prescriptions: No Action furosemide 40 mg tablet 20 mg PO .COMPLEX RF: 0 carvedilol 6.25 mg tablet 6.25 mg PO BID Qty: 1 RF: 3 amiodarone 200 mg tablet 200 mg PO DAILY Qty: 90 RF: 3 pravastatin 40 mg tablet 40 mg PO DAILY RF: 0 warfarin 2 MG tablet 2 mg PO SUTUWETHSA RF: 0 warfarin 1 mg Tablet 1 mg PO MOFR RF: 0 potassium chloride 20 mEq Tablet Extended Release 20 meq PO DAILY RF: 0 Primary Care Provider: Lawrence Cross Referrals: Lawrence Cross MD [Primary Care Provider] - 1-2 Weeks Adelfo Catherine MD [STAFF PHYSICIAN] - 1-2 Weeks Activity Restrictions/Additional Instructions: Increase your amiodarone to 1 tablet 3 times a day for 2 weeks then 1 tablet twice a day for 2 weeks. Then return to 1 tablet daily. Disposition Disposition: Home, Self Care Discharge Date/Time: 02/07/21 17:19
[2021-02-07 12:05] LABS: ALB/GLOB Ratio 0.8 RATIO (0.9-2.4); AST(SGOT) 29 U/L (15-37); Alanine Aminotransfer ALT/SGPT 38 U/L (16-61); Albumin, Serum 3.1 g/dL (3.2-5.0); Alkaline Phosphatase 156 U/L (45-117); Anion Gap 4 (5-15); BUN 43 mg/dL (7-18); Calcium,Total 8.8 mg/dL (8.5-10.1); Chloride 104 mmol/L (98-107); Creatinine, Serum 1.72 mg/dL (0.70-1.30); EST Glomerular Filtration Rate 41 mL/min (>60); Est Glom Filt Rate - Afr Amer 50 mL/min (>60); Estimated Creatinine Clearance 27.85 ml/min; Globulin 3.8 g/dL (2.2-4.2); Glucose 127 mg/dL (74-106); Potassium 4.6 mmol/L (3.5-5.1); Protein, Total 6.9 g/dL (6.4-8.2); Sodium Level 136 mmol/L (136-145); Troponin-I HS 360 pg/mL (3.0-78.0)
[2021-02-07 12:08] LABS: Bacteria 0 SEEN /hpf (None Seen); Mucous, Urine 0 SEEN /hpf (<or=2+); Red Blood Cells-Urine 0 SEEN /hpf (0-5)
[2021-02-07 12:17] LABS: Color, Urine Yellow (Yellow); Glucose, Dipstick Normal (Normal); Ketone-Dipstick Negative (Negative); Leukocyte Esterase-Dipstick 100 /ul (Negative); Nitrite-Dipstick Negative (Negative); Occult Blood-Urine Negative /ul (Negative); Protein-Dipstick 15 mg/dl (Negative); Urine Bilirubin Dipstick Negative (Negative); Urine Clarity Clear (Clear); Urine Urobilinogen Normal (Normal)
[2021-02-07 12:22] LABS: Squamous Epithelial Cells - UA 0-5 SEEN /hpf (0-5); White Blood Cells 10-25 SEEN /hpf (0-5)
[2021-02-07] MEDS: Aspirin 81 MG TAB.CHEW 324 MG PO (12:42)
[2021-02-07 13:46] LABS: Troponin-I HS 360 pg/mL (3.0-78.0)
[2021-02-07] MEDS: 0.9% Normal Saline 1,000 ML 125 ML IV (13:55)
[2021-02-07 14:28] LABS: International Normalized Ratio 3.3; Prothrombin Time (Protime)PT. 32.3 SECONDS (11.7-14.9)
[2021-02-07] MEDS: Propofol 200 MG/20 ML Vial IV BOLUS (16:00)
--- NOTE | 2021-02-07 16:14 | EKG12_ITS ---
Test Reason : PALPATATIONS Blood Pressure : / mmHG Vent. Rate : 121 BPM Atrial Rate : 121 BPM P-R Int : 128 ms QRS Dur : 246 ms QT Int : 408 ms P-R-T Axes : 000 119 -62 degrees QTc Int : 579 ms Sinus tachycardia Right bundle branch block Septal infarct , age undetermined Marked T wave abnormality, consider inferior ischemia Abnormal ECG Confirmed by KENNETH MOTA MD ([id number]), school photograph editor KULDEEP BERG ([id number]) on 02/08/2021 1:06:41 PM Also confirmed by KENNETH MOTA MD ([id number]), school photograph editor ARY COLE ([id number]) on 02/08/2021 1:25:19 PM Referred By: NACHO LOMELI Confirmed By:KENNETH MOTA MD
--- NOTE | 2021-02-07 16:46 | CON.PCM.CA_ITS ---
Assessment & Plan Assessment/Plan (1) Atrial flutter: PLAN: The patient appears to be in an underlying atrial dysrhythmia compatible with atrial flutter. At the moment he is being evaluated in the emergency department. As long as the patient's INR is therapeutic then it would be reasonable, noting his underlying cardiovascular condition findings, proceed with an attempt at synchronized biphasic DC cardioversion to regain sinus rhythm. If that occurs and the patient regained sinus rhythm then consideration will be given to adjusting his antiarrhythmic therapy by increasing his amiodarone dose to 200 mg 3 times daily x2 weeks then 200 mg twice daily x2 weeks then decreasing his dose to 200 mg p.o. daily. It would then be reasonable to consider referring the patient back to electrophysiology for consideration for EPS/RFA. (2) History of mechanical aortic valve replacement: PLAN: The patient does have a history of mechanical aortic valve replacement. He does need to continue AHA antibiotic prophylaxis and anticoagulant therapy. (3) History of mitral valve replacement with mechanical valve: PLAN: The patient has a history of mechanical mitral valve replacement as well. He does need to continue AHA antibiotic prophylaxis and anticoagulant therapy. (4) Cardiomyopathy: QUALIFIERS: Cardiomyopathy type: unspecified Qualified Code(s): I42.9 - Cardiomyopathy, unspecified PLAN: The patient does have a history of an underlying non-CAD related cardiomyopathy. He does need to monitor his volume status for any obvious evidence of acute on chronic CHF/pulmonary edema-systolic. He will need to continue medical management with adjustment as deemed appropriate. (5) ICD (implantable cardioverter-defibrillator) in place: PLAN: The patient's ICD was interrogated this day and appears to be functioning appropriately. (6) Renal insufficiency: PLAN: The patient's renal function has been noted-his creatinine has been somewhat elevated. This may be an acute change based upon his underlying recent development of a tachycardia superimposed upon his diminished LV systolic function. Hopefully the patient regained sinus rhythm this will improve as well. Addt'l Comments The above was discussed and reviewed with the patient, his spouse, and the [facility] emergency department staff. The [facility] emergency department staff will proceed, as long as the patient's INR is deemed appropriate, for synchronized biphasic DC cardioversion in an attempt to regain sinus rhythm. If the patient regained sinus rhythm then he can be monitored for stability and if deemed stable released home for continued outpatient follow-up with adjusted medical management as noted above. This note was generated using a voice recognition system and there may be incorrect words, spelling or punctuation that were not noted when reviewing the office note prior to saving. HPI Consult Data Date of Consult: 02/07/21 HPI Narrative HPI Narrative: PETER ROMERO, is a 75 year old white male who presents for emergency department consultation based upon concerns of a wide-complex tachycardia and hypotension superimposed upon a history of underlying non-CAD related cardiomyopathy, status post mechanical aortic valve replacement, status post mechanical mitral valve replacement, atrial dysrhythmias, status post ICD placement, and chronic renal insufficiency. He states for approximately the la st 24 hours he has felt his heart rate being higher, has been more short of breath, and has been more tired and fatigued. He presented to the office for an outpatient nurse visit and was found to be in an underlying wide-complex tachycardia concerning for atrial flutter as well as being hypotensive. He was subsequently referred for laboratory studies and emergency department evaluation. In the emergency department he was evaluated and based upon his low blood pressure treated with additional IV fluids. His ICD was interrogated which appeared to suggest an underlying atrial flutter with a 2-1 AV conduction. He denied any ongoing chest discomfort. There has been no report of acute orthopnea or PND. He denied any near-syncope or syncope or ICD discharges. His electrocardiogram did appear to demonstrate an underlying wide-complex tachycardia. [facility] Medical History (Updated 02/07/21 @ 16:[address] 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 current use of anticoagulant Home Medications warfarin 2 mg PO SUTUWETHSA 01/27/20 [History Last Taken Unknown] potassium chloride 20 meq PO DAILY 07/25/20 [History Last Taken Unknown] warfarin 1 mg PO MOFR 07/25/20 [History Last Taken Unknown] amiodarone 200 mg tablet 200 mg PO DAILY #90 tab 08/08/20 [Rx Last Taken Unknown] pravastatin 40 mg tablet 40 mg PO DAILY 11/25/20 [History Last Taken Unknown] carvedilol 6.25 mg tablet 6.25 mg PO BID #1 tab 01/04/21 [Rx Last Taken Unknown] furosemide 40 mg tablet 20 mg PO .COMPLEX tab 01/04/21 [History Last Taken Unknown] Allergy/AdvReac Type Severity Reaction Status Date / Time No Known Allergies Allergy Verified 02/07/21 11:07 Family History Father CVA (cerebral vascular accident) Surgical History History of mechanical aortic valve replacement (~2003) History of mitral valve replacement with mechanical valve (~2003) S/P AVR (aortic valve replacement) S/P MVR (mitral valve replacement) Social History Smoking Status: Never smoker alcohol intake: current details: occasional substance use type: does not use ROS Constitutional Constitutional: Reports lethargy Eyes Eyes: Reports as per HPI ENT HEENT: Reports as per HPI Cardiovascular Cardiovascular: Reports dyspnea, fatigue and palpitations Respiratory/Chest Respiratory/Chest: Reports dyspnea Gastrointestinal Gastrointestinal: Reports none Genitourinary Genitourinary: Reports none Musculoskeletal Musculoskeletal: Reports none Integumentary Integumentary: Reports none Neurologic Neurologic: Reports none Physical Exam Const alert, oriented x3 and no apparent distress Orientation / Consciousness: awake HEENT normocephalic, head/scalp atraumatic and hearing grossly normal bilaterally Eyes PERRL, EOMs intact bilaterally and conjunctivae normal Neck full ROM, supple and no JVD Chest Chest: left pectoral incision Resp normal respiratory effort and clear to auscultation bilaterally Cardio regular rate and regular rhythm Heart Sounds: prosthetic sounds crisp prosthetic S1 and crisp prosthetic S2 and abnormal sounds GI normal to inspection, nondistended, normoactive bowel sounds Extremity no pedal edema Skin no rashes or lesions noted Neuro oriented x3 and moves all extremities Psych mental status grossly normal Risk Stratification Risk Stratification Applicable: Yes Age >/= 65: Yes >/= 3 CAD Risk Factors (HTN, HLD, DM, family hx of CAD, or current smoker): No Aspirin Use in the Past 7 Days: No Severe Angina (>/= episodes in 24 hours): No EKG ST Changes >/= 0.5mm: No Positive Cardiac Marker: Yes FRANCINE Risk Stratification Score: 2 FRANCINE % Risk: 8% Risk Procedure Criteria Type of Procedure Procedure Type: Elective Elective Risks - COVID COVID Risk Discussion: The surgeon/proceduralist and patient have discussed in detail the risk of exposure to and/or potential harm posed by the COVID-19 virus with having a surgery/procedure at this time versus the risk of delaying the surgery/procedure. It is not possible to know either the risk of delaying the surgery or procedure or chance of getting an infection with perfect accuracy, but a joint decision was made between the patient and the surgeon/proceduralist to proceed at this time with the scheduled surgery/procedure as indicated on the consent form. Objective Data Vital Signs: Vital Signs Temp Pulse Resp BP Pulse Ox 97.4 F L 47 L 17 85/58 L 96 02/07/21 11:00 02/07/21 16:33 02/07/21 16:33 02/07/21 16:33 02/07/21 16:33 Oxygen Flow Rate (L/min) [4] 4 Oxygen Flow Rate (L/min) [3] 4 Oxygen Flow Rate (L/min) [2] 4 Oxygen Delivery Method [5] Room Air Oxygen Delivery Method [4] Nasal Cannula Oxygen Delivery Method [3] Nasal Cannula Oxygen Delivery Method [2] Nasal Cannula Oxygen Delivery Method Room Air Weight: 117 lb Body Mass Index (BMI) 21.4 Intake & Output: Intake and Output for Last 24 Hours 02/05/21 02/06/21 02/07/21 23:59 23:59 23:59 Intake Total 1000 / 1000 Balance 1000 / 1000 Lab / Micro Data Result Diagrams: 02/07/21 11:17 02/07/21 11:17 Labs: Laboratory Results - last 24 hr 02/07/21 11:17: WBC 5.7, RBC 3.66 L, Hgb 9.6 L, Hct 31.4 L, MCV 85.8, MCH 26.2 L , MCHC 30.6 L, RDW Std Deviation 45.7 H, RDW Coeff of Patricia 14.6, Plt Count 330, MPV 9.9, Immature Gran % (Auto) 0.900, Neut % (Auto) 75.2 H, Lymph % (Auto) 10.8 L, [place] % (Auto) 9.1, Eos % (Auto) 2.8, Baso % (Auto) 1.2 H, Absolute Neuts (auto) 4.3, Absolute Lymphs (auto) 0.62 L, Nucleated RBC % 0 02/07/21 11:17: Sodium 136, Potassium 4.6, Chloride 104, Carbon Dioxide 28.0, Anion Gap 4 L, BUN 43 H, Creatinine 1.72 H, Estim Creat Clear Calc 27.85, Est GFR (MDRD) Af Amer 50 L, Est GFR (MDRD) Non-Af 41 L, BUN/Creatinine Ratio 25.0 H , Glucose 127 H, Calcium 8.8, Total Bilirubin 1.80 H, AST 29, ALT 38, Alkaline Phosphatase 156 H, Troponin I High Sens 360 H*, Total Protein 6.9, Albumin 3.1 L , Globulin 3.8, Albumin/Globulin Ratio 0.8 L 02/07/21 11:17: PT 32.3 H, INR 3.3 02/07/21 11:59: Urine Color Yellow, Urine Clarity Clear, Urine pH 5.0, Ur Specific [place] 1.010, Urine Protein 15 H, Urine Glucose (UA) Normal, Urine Ketones Negative, Urine Occult Blood Negative, Urine Nitrite Negative, Urine Bilirubin Negative, Urine Urobilinogen Normal, Ur Leukocyte Esterase 100 H, Urine RBC 0 SEEN, Urine WBC 10-25 SEEN, Ur Squamous Epith Cells 0-5 SEEN, Urine Bacteria 0 SEEN, Urine Mucus 0 SEEN 02/07/21 13:14: Troponin I High Sens 360 H* Cardiology Labs/Tests 02/07/21 11:17: WBC 5.7, RBC 3.66 L, Hgb 9.6 L, Hct 31.4 L, MCV 85.8, MCH 26.2 L , MCHC 30.6 L, Plt Count 330, MPV 9.9, Immature Gran % (Auto) 0.900, Neut % (Auto) 75.2 H, Lymph % (Auto) 10.8 L, [place]ner % (Auto) 9.1, Eos % (Auto) 2.8, Baso % (Auto) 1.2 H, Absolute Neuts (auto) 4.3, Nucleated RBC % 0 02/07/21 11:17: Sodium 136, Potassium 4.6, Chloride 104, Carbon Dioxide 28.0, Anion Gap 4 L, BUN 43 H, Creatinine 1.72 H, Est GFR (MDRD) Af Amer 50 L, Est GFR (MDRD) Non-Af 41 L, BUN/Creatinine Ratio 25.0 H, Glucose 127 H, Calcium 8.8, Total Bilirubin 1.80 H 02/07/21 11:17: PT 32.3 H, INR 3.3 02/07/21 11:59: Urine Color Yellow, Urine Clarity Clear, Urine pH 5.0, Ur Specific [place] 1.010, Urine Protein 15 H, Urine Glucose (UA) Normal, Urine Ketones Negative, Urine Occult Blood Negative, Urine Nitrite Negative, Urine Bilirubin Negative, Urine Urobilinogen Normal, Ur Leukocyte Esterase 100 H, Urine RBC 0 SEEN, Urine WBC 10-25 SEEN Rhythm: Wide-complex tachycardia EKG: Wide-complex tachycardia Echocardiogram from 07/25/2020: Interpretation Summary Limited views were obtained. Mildly dilated left ventricle. Severe global left ventricular systolic dysfunction. The estimated ejection fraction is 20 %. The left atrium is moderately enlarged. Stable appearing mechanical mitral valve apparatus. Stable appearing mechanical aortic valve apparatus. Small mobile echodensity in the submitral valvular apparatus compatible with redundant / flail chordae tendonae. Comment: Compared with the previous transthoracic echocardiogram from 01-12-2020: There are similar type changes. Stress test from 01/13/2020: Procedure: Pharmacologic stress nuclear imaging study Indications: Atrial fibrillation/flutter; status post MVR; status post AVR; cardiomyopathy; ICD Consent: Per the patient Procedure: The patient underwent pharmacologic (Regadenoson) evaluation with a peak heart rate of 120 beats per minute (82%predicted maximal heart rate) and a peak blood pressure of 134/91 mmHg. The baseline ECG demonstrated atrial flutter with left axis deviation with left bundle branch block pattern. The peak pharmacologic ECG demonstrated no obvious ECG changes. There was an occasional PVC during infusion and recovery. There was no complaint of chest discomfort during pharmacologic infusion or recovery. The examination was discontinued secondary to completion of protocol. Impression: 1. Pharmacologic (Regadenoson) evaluation 2. Peak pharmacologic ECG with no obvious ECG changes. 3. There was an occasional PVC during infusion and recovery. 4. Nuclear images pending Myocardial perfusion imaging study: Technique: The patient was injected with 11.8 millicuries of technetium 99m Cardiolite and subsequently rest SPECT Cardiolite nuclear imaging was obtained in the horizontal long, vertical long, and short axis views. The patient underwent pharmacologic (Regadenoson) evaluation with a peak heart rate of 120 beats per minute (82% percent predicted maximal heart rate) and a peak blood pressure of 134/91 mmHg. The patient was injected with 32.7 millicuries of technetium 99m Cardiolite and subsequently stress SPECT Cardiolite nuclear imaging was obtained in the horizontal long, vertical long, and short axis views. A gated Cardiolite study at peak stress was obtained. Interpretation: Rest and stress SPECT Cardiolite nuclear imaging status post realignment, normalization, and attenuation correction demonstrate the appearance of diminished absence of myocardial perfusion/tracer uptake in portions of the basal to mid anteroseptal segments without significant change between rest and stress. There is diminished end systolic thickening and brightening. The gated Cardiolite study demonstrates diminished myocardial thickening and inward wall motion. The reported LVEF is 20%. Impression: 1. Rest and stress SPECT current nuclear imaging demonstrate myocardial perfusion changes potentially compatible with the patient's underlying left bundle branch block phenomena, however, an area of previous myocardial injury/infarction cannot necessarily be excluded, with no myocardial perfusion changes considered diagnostic for associated stress-induced myocardial ischemia. 2. The gated Cardiolite study reports an LVEF of 20%.
== END 2021-02-07 17:19 | disposition home or self-care (01) ==
PROVIDERS: Emergency Provider Emergency Medicine; PCP Family Medicine
DX: I48.92 Unspecified atrial flutter (principal); I95.9 Hypotension, unspecified; I47.2 Ventricular tachycardia; I50.31 Acute diastolic (congestive) heart failure; N18.9 Chronic kidney disease, unspecified; E87.1 Hypo-osmolality and hyponatremia; I48.91 Unspecified atrial fibrillation; I42.9 Cardiomyopathy, unspecified; Z79.01 Long term (current) use of anticoagulants; Z79.899 Other long term (current) drug therapy; Z95.810 Presence of automatic (implantable) cardiac defibrillator; Z95.2 Presence of prosthetic heart valve
CPT/HCPCS: 92960; 36415; 71045; 80048; 80053; 81001; 83735; 83880; 84436; 84443; 84484; 85025; 85027; 85610; 93005; 96360; 96361; 99152; 99284; J7030; A4216

== ENCOUNTER 2021-03-03 09:40 | Outpatient (CLI) | payer MEDICARE, SELFPAY ==
[2021-03-03 11:16] LABS: Hematocrit 30.9 % (40-54); Hemoglobin 9.2 g/dL (13.0-16.5)
[2021-03-03 11:53] LABS: Anion Gap 4 (5-15); BUN 30 mg/dL (7-18); BUN/Creat Ratio 24.8 RATIO (10-20); Calcium,Total 8.7 mg/dL (8.5-10.1); Chloride 104 mmol/L (98-107); Creatinine, Serum 1.21 mg/dL (0.70-1.30); EST Glomerular Filtration Rate 62 mL/min (>60); Est Glom Filt Rate - Afr Amer 75 mL/min (>60); Glucose 134 mg/dL (74-106); Sodium Level 138 mmol/L (136-145)
== END 2021-03-03 23:59 | disposition short-term general hospital (02) ==
LOC: LAB 09:42
PROVIDERS: PCP Family Medicine; Visit Provider Physician Assistant Medical
DX: I48.92 Unspecified atrial flutter (principal)
CPT/HCPCS: 36415; 80048; 85014; 85018

== ENCOUNTER 2021-03-09 07:35 | Inpatient (IN) | payer MEDICARE, SELFPAY ==
[2021-03-09] VITALS (12 sets, daily range): BP systolic 92–129; BP diastolic 56–71; PULSE 50–111; RESP 14–24; TEMP 36.4–36.6; O2SAT 93–99; BMI 21.3; BMI 20.9
--- NOTE | 2021-03-09 07:53 | EKG12_ITS ---
Test Reason : PALPS Blood Pressure : / mmHG Vent. Rate : 110 BPM Atrial Rate : 110 BPM P-R Int : 144 ms QRS Dur : 252 ms QT Int : 428 ms P-R-T Axes : 116 120 -54 degrees QTc Int : 579 ms Suspect arm lead reversal, interpretation assumes no reversal Wide QRS Rhythm: Consider Atrial Flutter with IVCD Abnormal ECG Confirmed by ZULY IRIZARRY, SAKINA ([id number]), continuity editor ARY COLE ([id number]) on 03/13/2021 11:20:37 AM Referred By: ARMANI Confirmed By:SAKINA CARUSO MD
--- NOTE | 2021-03-09 08:05 | ED.VIS.CHEST ---
HPI History of Present Illness Chief Complaint: Palpitations Informant: patient Onset/Context/Timing Onset: Yesterday Activity at onset: sudden Timing: Continuous Quality: Positive for - (Racing) Location: Left Chest Worsened By: Nothing Relieved By: Nothing Associated Symptoms: Positive for Dyspnea and Palpitations; Negative for Nausea, Vomiting, Diaphoresis, Cough, Fever, Lightheadedness and Acid Reflux Narrative Narrative: Patient presents with palpitations that began yesterday evening. Patient states he feels like his heart is beating fast. Patient states it slowed down a couple times last evening but has been constant. Patient states nothing makes it worse and nothing makes it better. Patient admits to some mild pain in his chest. Patient admits to some shortness of breath. Patient denies any nausea or vomiting. Patient denies any diaphoresis. Patient denies any lightheadedness or syncopal episodes. CVD Risk Factors: Negative for Hypertension, Diabetes, Hypercholesterolemia and Smoking PE Risk Factors: Negative for Recent Travel/Surgery, Recent Immobilization, Prior DVT or PE, Cancer and OCP + Smoking + >/=35 PFSH PFSH Medical History (Updated 03/09/21 @ 15:[address] Esther Ruiz, DO) Atrial fibrillation with RVR Atrial flutter Bacterial endocarditis Cardiomyopathy ICD (implantable cardioverter-defibrillator) in place [facility] current use of anticoagulant Microcytic anemia Home Medications warfarin 2 mg PO SUTUTHSA 01/27/20 [History Last Taken Unknown] potassium chloride 20 meq PO DAILY 07/25/20 [History Last Taken 03/09/21] warfarin 1 mg PO MOWEFR 07/25/20 [History Last Taken Unknown] pravastatin 40 mg tablet 40 mg PO DAILY 11/25/20 [History Last Taken Unknown] carvedilol 6.25 mg tablet 6.25 mg PO BID #1 tab 01/04/21 [Rx Last Taken 03/09/21] furosemide 40 mg tablet 20 mg PO .COMPLEX tab 01/04/21 [History Last Taken 03/08/21] amiodarone 200 mg tablet 200 mg PO BID tab 03/03/21 [History Last Taken 03/09/21] amoxicillin-pot clavulanate 875 mg PO Q12H #20 tablet 03/09/21 [Rx Last Taken Unknown] Allergy/AdvReac Type Severity Reaction Status Date / Time No Known Allergies Allergy Verified 03/09/21 07:38 Family History Father CVA (cerebral vascular accident) Surgical History History of mechanical aortic valve replacement (~2003) History of mitral valve replacement with mechanical valve (~2003) S/P AVR (aortic valve replacement) S/P MVR (mitral valve replacement) Social History Smoking Status: Never smoker alcohol intake: current details: occasional substance use type: does not use ROS ROS ED Constitutional Constitutional ED: Denies chills or fever(s) Eyes Eyes: Denies blurry vision or change in vision ENT ENT ED: Denies rhinorrhea or sore throat Cardiovascular Cardiovascular: Reports chest pain, palpitations and racing heartbeat Respiratory/Chest Respiratory/Chest: Reports dyspnea; Denies cough Gastrointestinal Gastrointestinal: Reports nausea; Denies abdominal pain or vomiting Genitourinary Genitourinary ED: Denies dysuria or hematuria Musculoskeletal Musculoskeletal: Denies back pain or neck pain Integumentary Denies abscess or rash Neurologic Neurologic: Denies headache(s) or weakness Allergic/Immunologic Allergic/Immunologic ED: Denies mouth swelling or urticaria EXAM Physical Exam Const Vital Signs: 03/09/21 07:37 03/09/21 08:01 03/09/21 10:08 Temperature 97.6 F L Temperature Source Temporal Pulse Rate 111 H 65 Respiratory Rate 16 24 H Respiratory Effort Normal Non-Labored Blood Pressure 99/59 L 129/71 H Blood Pressure Mean 72 90 Pulse Ox 94 Oxygen Delivery Method Room Air 03/09/21 12:23 03/09/21 12:47 03/09/21 13:05 Temperature Temperature Source Pulse Rate 61 61 61 Respiratory Rate 21 H 14 Respiratory Effort Blood Pressure 92/62 112/57 L Blood Pressure Mean 75 Pulse Ox 99 Oxygen Delivery Method Positive well nourished and well developed General Appearance ED: well developed HEENT normocephalic and atraumatic Eyes PERRL and EOMs intact bilaterally Neck supple and no JVD Chest Wall palpation of chest normal Resp normal respiratory effort and clear to auscultation bilaterally Effort and Inspection: Negative for respiratory distress Cardio regular rate, regular rhythm and no murmurs GI normal to inspection, nondistended, normoactive bowel sounds, soft to palpation, non-tender and non-distended Extremity normal to inspection General Extremety ED: Negative for edema or tenderness General Extremity: Negative for edema Neuro oriented x3, CN's II-XII intact bilaterally and no sensory deficits noted Sensorium / Orientation: awake and alert Motor Exam: strength 5/5 throughout Psych mental status grossly normal Heart Score History: Slightly/Non-Suspicious ECG: Nonspecific Repolarization Age: >/= 65 years Risk Factors: No Risk Factors Troponin: >1 - <3 Normal Limit Score: 4 MDM MDM MDM Narrative Medical decision making narrative: EKG was obtained. On my interpretation, there is a sinus tachycardia with a rate of 110. There is a right bundle branch block pattern noted. IA interval was normal. There is borderline right axis deviation at 120. There are nonspecific ST-T wave changes. This is unchanged compared to previous EKG. CBC shows a hemoglobin of 9.9 and hematocrit 33.3. These are unchanged compared to previous result. PT with INR was therapeutic at 2.3. Comprehensive metabolic profile was essentially within normal limits. Initial high-sensitivity troponin was slightly elevated at 390. This was basically unchanged compared to previous result of 360 1 month ago. 2-hour repeat high-sensitivity troponin was essentially unchanged at 392. Portable chest x-ray was obtained. There is 1 view. On my interpretation there is a right lower lobe infiltrate. This is new compared to previous chest x-ray. Patient was given aspirin here. Patient was started on Rocephin and Zithromax here. Patient feels better on reevaluation. Patient's heart rate improved to 65. Patient wants to go home. Patient was given a prescription for Augmentin. Patient was instructed to follow-up with his primary care physician in 3 to 5 days. Patient was instructed return if worse in any way. Patient understood and was agreeable with the plan. All questions were answered. Patient ambulated to the bathroom but became weak and lightheaded. Patient states he did not feel he could go home and take care of himself. Case was discussed with the hospitalist. She will admit the patient to her service. Patient understood and was agreeable with the plan. All questions were answered. Lab Data Attestation: I reviewed the patient's lab results. Labs: Laboratory Results - last 24 hr 03/09/21 03/09/21 03/09/21 07:55 07:55 07:55 WBC 7.4 RBC 4.21 L Hgb 9.9 L Hct 33.3 L MCV 79.1 L MCH 23.5 L MCHC 29.7 L RDW Std Deviation 46.7 H RDW Coeff of Patricia 16.3 H Plt Count 348 MPV 8.9 Immature Gran % (Auto) 0.400 Neut % (Auto) 74.5 H Lymph % (Auto) 8.4 L [place] % (Auto) 10.5 H Eos % (Auto) 5.2 H Baso % (Auto) 1.0 Absolute Neuts (auto) 5.5 Absolute Lymphs (auto) 0.62 L Nucleated RBC % 0 PT 24.4 H INR 2.3 Sodium 137 Potassium 4.1 Chloride 103 Carbon Dioxide 30.0 Anion Gap 4 L BUN 27 H Creatinine 1.29 Estim Creat Clear Calc 37.09 Est GFR (MDRD) Af Amer 70 Est GFR (MDRD) Non-Af 58 L BUN/Creatinine Ratio 20.9 H Glucose 100 Calcium 8.7 Total Bilirubin 1.50 H AST 30 ALT 49 Alkaline Phosphatase 177 H Troponin I High Sens 390 H* B-Natriuretic Peptide Total Protein 7.0 Albumin 3.1 L Globulin 3.9 Albumin/Globulin Ratio 0.8 L 03/09/21 03/09/21 07:55 10:14 WBC RBC Hgb Hct MCV MCH MCHC RDW Std Deviation RDW Coeff of Patricia Plt Count MPV Immature Gran % (Auto) Neut % (Auto) Lymph % (Auto) [place] % (Auto) Eos % (Auto) Baso % (Auto) Absolute Neuts (auto) Absolute Lymphs (auto) Nucleated RBC % PT INR Sodium Potassium Chloride Carbon Dioxide Anion Gap BUN Creatinine Estim Creat Clear Calc Est GFR (MDRD) Af Amer Est GFR (MDRD) Non-Af BUN/Creatinine Ratio Glucose Calcium Total Bilirubin AST ALT Alkaline Phosphatase Troponin I High Sens 392 H* B-Natriuretic Peptide 1582.0 H Total Protein Albumin Globulin Albumin/Globulin Ratio Radiography Chest X-Ray - ED: 1 View, Read by ED Physician, Read by Radiologist and Right Infiltrate Diagnostic Testing: Clinical Impression(s) from Imaging Studies Chest X-Ray 03/09/21 08:20 IMPRESSION: New right lower lobe infiltrate. Electronically Signed: Jayesh Gross MD at 8:39 EST , Service support , EKG Initial EKG: Attestation: I personally reviewed and interpreted this EKG as follows: Interpretation: Sinus Tachycardia (110) and Non-Specific ST Changes Comments: Right bundle branch block pattern Prior EKG tracings: available for review Prior: Unchanged (02/07/2021) Treatment and Re-Evaluation Vital Sign Attestation:: Vital signs were reviewed prior to admission. They are stable. Discharge Plan Dx/Rx/DC Orders Clinical Impression: Pneumonia, Abnormal cardiac enzyme level, Weakness Disposition Disposition: Acute Care Hospital [facility] Discharge Date/Time: 03/09/21 14:47
[2021-03-09 08:08] LABS: Absolute Lymphocyte Count 0.62 X10^3/uL (0.83-4.51); Absolute Neutrophil Count 5.5 X10^3/uL (2.0-7.7); Basophil# 0.07 X10^3/uL; Eosinophil# 0.38 X10^3/uL; Eosinophils% 5.2 % (0-5); Hematocrit 33.3 % (40-54); Hemoglobin 9.9 g/dL (13.0-16.5); Lymphocyte # 0.62 X10^3/ul (0.83-4.51); Lymphocyte % 8.4 % (19-41); Mean Corp Hgb Conc 29.7 g/dL (32-36); Mean Corpuscular Hgb 23.5 pg (27.0-32.0); Mean Corpuscular Volume 79.1 fL (80-94); Mean Platelet Vol. 8.9 fl (6.2-12.0); Monocyte# 0.77 X10^3/uL; Monocyte% 10.5 % (0-10); NRBC Flagged by Analyzer 0 % (0-5); Neutrophil # 5.49 X10^3/uL (2.7-7.7); Neutrophil % 74.5 % (47-70); Platelet Count 348 K/mm3 (150-450); RBC Distribution Width CV 16.3 % (11.6-14.6); RBC Distribution Width SD 46.7 fl (35.1-43.9); Red Blood Count 4.21 M/mm3 (4.6-6.2); White Blood Count 7.4 K/mm3 (4.4-11.0)
--- NOTE | 2021-03-09 08:20 | RAD_ITS ---
STUDY: X-RAY CHEST REASON FOR EXAM: Male, 75 years old. Palpitations TECHNIQUE: Single AP portable view of the chest. COMPARISON: Comparison is made with prior study dated 02/07/2021. FINDINGS: EKG electrodes are seen. Stable elevation of the right hemidiaphragm. New infiltrate in the right lower lobe. There is no demonstrated pleural abnormality. Sternal cerclage wires are present from a prior sternotomy. The patient is status post mitral valve replacement. A left-sided dual-chamber pacemaker is seen. Normal mediastinum and parth. Normal visualized pulmonary arteries. There is atherosclerotic tortuosity of the aortic arch and descending thoracic aorta. Normal visualized thoracic spine. There is degenerative osteoarthritis of the bilateral shoulders. There is no demonstrated abnormality of the visualized soft tissue structures of the upper abdomen. RAD/Chest 1 View (Portable) IMPRESSION: New right lower lobe infiltrate. Electronically Signed: Jayesh Gross MD at 8:39 EST , Service support ,
[2021-03-09 08:31] LABS: ALB/GLOB Ratio 0.8 RATIO (0.9-2.4); AST(SGOT) 30 U/L (15-37); Alanine Aminotransfer ALT/SGPT 49 U/L (16-61); Albumin, Serum 3.1 g/dL (3.2-5.0); Alkaline Phosphatase 177 U/L (45-117); Anion Gap 4 (5-15); BUN 27 mg/dL (7-18); BUN/Creat Ratio 20.9 RATIO (10-20); Calcium,Total 8.7 mg/dL (8.5-10.1); Chloride 103 mmol/L (98-107); Creatinine, Serum 1.29 mg/dL (0.70-1.30); EST Glomerular Filtration Rate 58 mL/min (>60); Est Glom Filt Rate - Afr Amer 70 mL/min (>60); Estimated Creatinine Clearance 37.09 ml/min; Globulin 3.9 g/dL (2.2-4.2); Glucose 100 mg/dL (74-106); International Normalized Ratio 2.3; Potassium 4.1 mmol/L (3.5-5.1); Prothrombin Time (Protime)PT. 24.4 SECONDS (11.7-14.9); Sodium Level 137 mmol/L (136-145); Troponin-I HS 390 pg/mL (3.0-78.0)
[2021-03-09] MEDS: Aspirin 81 MG TAB.CHEW 324 MG PO (09:17)
[2021-03-09 10:40] LABS: Troponin-I HS 392 pg/mL (3.0-78.0)
--- NOTE | 2021-03-09 12:47 | ED.RN ---
Dr. Johnson aware of blood pressure being 92/52 (65 MAP), ok for discharge.
--- NOTE | 2021-03-09 12:58 | ED.RN ---
After patient discharge, PT requests to ambulate to use restroom. With assistance, patient noted to be very unsteady and complaining of dizziness and weakness at that time. Pt does not normally use a walker or cane at home and normally gets around without assistance. Due to the dizziness complaint and noted unsteady gait, Dr. Johnson notified of this. Patient placed back into ER 6.
--- NOTE | 2021-03-09 14:04 | CT_ITS ---
STUDY: CTA CHEST REASON FOR EXAM: Male, 75 years old. Dyspnea on exertion RADIATION DOSAGE (If Supplied By Facility): CTDIvol = ( 4.6 ) mGy, DLP = ( 158.02 ) mGycm TECHNIQUE: The examination was performed with the intravenous administration of IV 100mL Isovue-300. Post-processing of the angiographic images was performed, with multiplanar reformation and 3D reconstruction. Individualized dose optimization techniques were used for this CT. COMPARISON: Comparison is made with prior examination dated 01/18/2020 and prior chest radiograph done earlier today. FINDINGS: Normal enhancement of the main pulmonary artery and right and left pulmonary arteries. Normal enhancement of the bilateral peripheral pulmonary arteries. There is no demonstrated pulmonary embolism. There is atherosclerotic calcification of the aortic arch with tortuosity. There is no demonstrated aortic dissection. Sternal cerclage wires are present from a prior sternotomy. The patient is status post mitral valve replacement. A left-sided dual-chamber pacemaker is seen. Normal mediastinum. Normal hilar regions. Normal visualized trachea and bronchi. The lungs are well expanded. Small bilateral pleural effusions right greater than left. There is evidence of bilateral patchy alveolar infiltrates involving both lungs worse in the right lower lobe. Normal chest wall structures. There are degenerative changes of thoracic spine. Normal visualized upper abdomen. CT/CTA Chest W/WO Contrast IMPRESSION: No evidence of a pulmonary embolism. Patchy bilateral alveolar infiltrates involving both lungs worse in the right upper lobe. Small bilateral pleural effusions right greater than left. Electronically Signed: Jayesh Gross MD at 14:43 EST , Service support ,
--- NOTE | 2021-03-09 14:10 | CASEMGMT ---
BARRIE CM to room to meet with patient for initial transition planning/care coordination assessment. BARRIE SERRANO introduced self and role at [facility]. Patient voices understanding and consents to assessment at this time. Patient's Lynne present at bedside. Patient is alert and oriented, sitting up on ER cart in no apparent distress and answers all questions appropriately. Care providers, pharmacy, and demographics verified/updated at this time. PCP: Lawrence Cross Specialists: Dorene- cardiology Preferred Pharmacy: [facility] Insurance: [employer] [facility] Prescription Benefit: yes Living Will/HPOA: Patient states he has a living will and HPOA is sonJakub. Patient made aware these forms are not on file at [facility] and may be brought in to be scanned into record. LNOK: , Lynne Ozuna and son Jakub Ozuna Living Arrangements: Patient lives with and one daughter in two story house with 3 steps to enter the home with a handrail present. Patient previously independent with ADLs but reports increased weakness and dizziness prior to today's ER visit. 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 denies having any DME in home. Previous HHC following cardiac surgery 17 years ago, unable to recall name of agency. Denies previous SNF stays. In ER, patient noted per nursing staff to have unsteady gait and complains of dizziness and weakness. Patient has no concerns with going home at time of discharge and is agreeable to HHC, if indicated. CM to follow for any discharge planning/needs. Patient voices no concerns/needs at this time. Advised patient to ask for CM if any questions/concerns/needs arise. Voices understanding.
--- NOTE | 2021-03-09 15:22 | PCM.HP.STD ---
[facility] - General General Date of Admission: 03/09/21 Date of Service: 03/09/21 Chief Complaint: Palpitations/dyspnea HPI Narrative PETER ROMERO, is a 75 M who presented to the emergency department complaining of dyspnea and palpitations. The patient states he has had intermittent palpitations most notably in the evening. He did have a recent cardioversion for atrial flutter/fibrillation and was placed on amiodarone. He has a recent follow-up with cardiology at which time his amiodarone was down titrated slowly. He states he has not had any of the palpitation concerns in the last 24 hours but has had persistent shortness of breath and generalized weakness. He states that he feels fine at rest but he states that shortness of breath gets markedly worse with exertion. He denies any nausea vomiting, chest pain, shortness of breath, diarrhea, cough, sputum production, fever, or chills. He has otherwise been well. He denies any known history of coronary disease but he does admit to a history of bacterial endocarditis and is status post mechanical aortic valve replacement/mechanical mitral valve replacement. He does have a known history of cardiomyopathy with an EF last noted at 30%. This is a nonischemic cardiomyopathy and he does have an ICD pacer in place. In the emergency department he was afebrile. His initial heart rate was 111 but the predominant heart rate throughout his emergency department course were 52-65. His blood pressures were stable, his respiratory rate was anywhere from 14-24 and his oxygen saturations were 94 to 99% on room air. His CBC showed a normal white count with a chronic stable microcytic anemia and a normal platelet count. His INR was slightly subtherapeutic at 2.3 with a goal of 2.5-3.5 with history of mechanical mitral valve replacement. His electrolytes are normal his serum BUN and creatinine are slightly elevated but at his baseline with a BUN of 27 and a serum creatinine of 1.29. His bilirubin is mildly elevated one 1.5 and this appears to be a chronic elevation. His troponin is elevated at 390. He did have a troponin check on 02/07/2021 when he was in A. fib and it was 360 at that time however he is currently in normal sinus rhythm. His BNP is markedly elevated at 1582. His EKG shows normal sinus rhythm without any ST-T wave changes consistent with acute ischemia. Chest x-ray was performed and the read to have a right lower lobe infiltrate, however a CTA of his chest was performed and was negative for PE but shows patchy bilateral alveolar infiltrates involving both lungs worse in the right upper lobe and small bilateral pleural effusions right greater than left. A COVID-19 was performed and negative. There is initial concern of pneumonia given chest x-ray read by the emergency department he was treated with a azithromycin and ceftriaxone however with further work-up I suspect this was more heart failure related and potentially an anginal equivalent with her worsening dyspnea on exertion and intermittent palpitations. He could be intermittently going in and out of A. fib. He will be admitted to PCU. REPLACED BY [facility] Medical History (Updated 03/09/21 @ 15:[address] 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 current use of anticoagulant Microcytic anemia Home Medications warfarin 2 mg PO SUTUTHSA 01/27/20 [History Last Taken Unknown] potassium chloride 20 meq PO DAILY 07/25/20 [History Last Taken 03/09/21] warfarin 1 mg PO MOWEFR 07/25/20 [History Last Taken Unknown] pravastatin 40 mg tablet 40 mg PO DAILY 11/25/20 [History Last Taken Unknown] carvedilol 6.25 mg tablet 6.25 mg PO BID #1 tab 01/04/21 [Rx Last Taken 03/09/21] furosemide 40 mg tablet 20 mg PO .COMPLEX tab 01/04/21 [History Last Taken 03/08/21] amiodarone 200 mg tablet 200 mg PO BID tab 03/03/21 [History Last Taken 03/09/21] amoxicillin-pot clavulanate 875 mg PO Q12H #20 tablet 03/09/21 [Rx Last Taken Unknown] Allergy/AdvReac Type Severity Reaction Status Date / Time No Known Allergies Allergy Verified 03/09/21 07:38 Family History Father CVA (cerebral vascular accident) Surgical History History of mechanical aortic valve replacement (~2003) History of mitral valve replacement with mechanical valve (~2003) S/P AVR (aortic valve replacement) S/P MVR (mitral valve replacement) Social History Smoking Status: Never smoker alcohol intake: current details: occasional substance use type: does not use ROS Constitutional Constitutional: Reports fatigue; Denies anorexia, change in weight, chills, fever(s), malaise, night sweats, weakness or other Eyes Eyes: Denies blurry vision, change in eye color, change in vision, discharge from eye(s), double vision, erythema, eye pain, loss of vision or other ENT HEENT: Denies abnormal hearing, dysphagia, ear pain, epistaxis, headache(s), hearing loss, nasal congestion, nasal discharge, post nasal drip, sinus pressure, sore throat or other Cardiovascular Cardiovascular: Reports dyspnea on exertion, orthopnea, palpitations and rapid heart rate; Denies chest pain, claudication, edema, lightheadedness, paroxysmal nocturnal dyspnea, syncope or other Respiratory/Chest Respiratory/Chest: Reports dyspnea and shortness of breath with exertion; Denies cough, excessive phlegm production, hemoptysis, productive cough, shortness of breath at rest, wheezing or other Gastrointestinal Gastrointestinal: Denies abdominal pain, coffee ground emesis, constipation, diarrhea, dyspepsia, hematemesis, hematochezia, loose stools, melena, nausea, vomiting or other Genitourinary Genitourinary: Denies burning urination, difficulty urinating, dysuria, hematuria, nocturia, urinary frequency, urinary hesitancy, urinary incontinence, urinary urgency or other Musculoskeletal Musculoskeletal: Denies arthralgias, back pain, joint pain, joint stiffness, joint swelling, myalgias, neck pain or other Neurologic Neurologic: Denies abnormal gait, abnormal speech, confusion, disequilibrium, dizziness, focal weakness, headache(s), numbness, paresthesias, seizure-like activity, seizures, syncope, tingling, tremor(s) or other Psychiatric Psychiatric: Denies anxiety, depression, homicidal ideation, suicidal ideation or other Endocrine Endocrinology: Denies change in body appearance, cold intolerance, excessive sweating, heat intolerance, polydipsia, polyuria or other Hematologic/Lymphatic Hematologic/Lymphatic: Denies anemia, easy bleeding, easy bruising, lymphadenopathy or other Allergic/Immunologic Allergic/Immunologic: Denies rhinitis, hives, eczemia, asthma or other Vital Signs Vital Signs Vital Signs: 03/09/21 07:37 03/09/21 08:01 03/09/21 10:08 Temperature 97.6 F L Temperature Source Temporal Pulse Rate 111 H 65 Respiratory Rate 16 24 H Respiratory Effort Normal Non-Labored Blood Pressure 99/59 L 129/71 H Blood Pressure Mean 72 90 Blood Pressure Source Blood Pressure Position Blood Pressure Location Pulse Ox 94 Oxygen Delivery Method Room Air 03/09/21 12:23 03/09/21 12:47 03/09/21 13:05 Temperature Temperature Source Pulse Rate 61 61 61 Respiratory Rate 21 H 14 Respiratory Effort Blood Pressure 92/62 112/57 L Blood Pressure Mean 75 Blood Pressure Source Blood Pressure Position Blood Pressure Location Pulse Ox 99 Oxygen Delivery Method 03/09/21 14:01 03/09/21 14:41 03/09/21 14:50 Temperature 97.6 F L 97.9 F Temperature Source Temporal Oral Pulse Rate 61 52 L 59 L Respiratory Rate 14 16 Respiratory Effort Blood Pressure 112/71 116/63 Blood Pressure Mean 84 80 Blood Pressure Source Monitor Blood Pressure Position Semi-Fowlers Blood Pressure Location Left Arm Pulse Ox 99 95 Oxygen Delivery Method Room Air Room Air Weight Weight: 52.072 kg Body Mass Index (BMI) 20.9 Physical Exam Const alert, oriented x3, no apparent distress, average body habitus and well nourished Constitutional Narrative: Older male of normal body weight, lying in bed in right side-lying, appears comfortable and nontoxic, at bedside General Appearance: cooperative HEENT normocephalic, head/scalp atraumatic, hearing grossly normal bilaterally, moist oral mucous membranes and oropharynx normal HEENT Narrative: Dentition is fair, Mallampati is 1-2, no thrush Mouth: oral and palatal mucosa normal Eyes PERRL and EOMs intact bilaterally Eyes Narrative: Mild conjunctival pallor, no scleral icterus Neck no lymphadenopathy, supple and no carotid bruits Neck Narrative: Trachea midline, no thyroid enlargement Resp normal respiratory effort, no retractions, no use of accessory muscles and clear to auscultation bilaterally Resp Narrative: Scattered crackles most notably at bases bilaterally Auscultation: crackles; Negative for rhonchi or wheezes Cardio regular rate, regular rhythm, S1 normal heart sound, S2 normal heart sound, no murmurs, no rub and no gallops; Negative for no clicks Cardio Narrative: Click noted, mild JVD GI normal to inspection, nondistended, normoactive bowel sounds, soft to palpation, non-tender and non-distended; Negative for hepatosplenomegaly Extremity Extremity Narrative: Trace to 1+ bilateral lower extremity edema, no clubbing or cyanosis noted Peripheral Pulses: Yes pulses 2+ throughout Skin no rashes or lesions noted, no wounds, skin turgor normal, no jaundice, no petechiae and no mottling Skin Narrative: Left upper chest pacer/defibrillator in place Neuro oriented x3, CN's II-XII intact bilaterally, moves all extremities and no focal motor deficits Neuro Narrative: Generalized weakness Sensorium / Orientation: awake and alert Speech: speech normal Psych affect normal Psych Narrative: Very pleasant Results Lab / Micro Data Result Diagrams: 03/09/21 07:55 03/09/21 07:55 Labs: Laboratory Results - last 24 hr 03/09/21 07:55: WBC 7.4, RBC 4.21 L, Hgb 9.9 L, Hct 33.3 L, MCV 79.1 L, MCH 23.5 L, MCHC 29.7 L, RDW Std Deviation 46.7 H, RDW Coeff of Patricia 16.3 H, Plt Count 348, MPV 8.9, Immature Gran % (Auto) 0.400, Neut % (Auto) 74.5 H, Lymph % (Auto) 8.4 L, [place] % (Auto) 10.5 H, Eos % (Auto) 5.2 H, Baso % (Auto) 1.0, Absolute Neuts (auto) 5.5, Absolute Lymphs (auto) 0.62 L, Nucleated RBC % 0 03/09/21 07:55: PT 24.4 H, INR 2.3 03/09/21 07:55: Sodium 137, Potassium 4.1, Chloride 103, Carbon Dioxide 30.0, Anion Gap 4 L, BUN 27 H, Creatinine 1.29, Estim Creat Clear Calc 37.09, Est GFR (MDRD) Af Amer 70, Est GFR (MDRD) Non-Af 58 L, BUN/Creatinine Ratio 20.9 H, Glucose 100, Calcium 8.7, Total Bilirubin 1.50 H, AST 30, ALT 49, Alkaline Phosphatase 177 H, Troponin I High Sens 390 H*, Total Protein 7.0, Albumin 3.1 L, Globulin 3.9, Albumin/Globulin Ratio 0.8 L 03/09/21 07:55: B-Natriuretic Peptide 1582.0 H 03/09/21 10:14: Troponin I High Sens 392 H* Micro: Microbiology 03/09/21 08:06 Nasal Secretion SARS-CoV-2 Antigen (Rapid) - Final Radiology Impression Chest X-Ray 03/09/21 08:20 IMPRESSION: New right lower lobe infiltrate. Electronically Signed: Jayesh Gross MD at 8:39 EST , Service support , Chest CTA 03/09/21 14:04 IMPRESSION: No evidence of a pulmonary embolism. Patchy bilateral alveolar infiltrates involving both lungs worse in the right upper lobe. Small bilateral pleural effusions right greater than left. Electronically Signed: Jayesh Gross MD at 14:43 EST , Service support , Assessment & Plan Assessment/Plan (1) Weakness: (2) Dyspnea on exertion: (3) Palpitations: PLAN: Dyspnea on exertion/weakness -Concerned that this may be an anginal equivalent -Had a stress test 01/13/2020 that was abnormal but it was thought most likely to be related to his left bundle branch phenomenon -Check lipids -Cycle cardiac enzymes--> initial cardiac enzyme was elevated however the patient had elevated cardiac enzymes in mid January -Significance of this is unclear at this time -Patient was given 324 mg of aspirin emergency department -Continue daily aspirin 81 mg -Hold Coumadin -Start heparin drip without bolus given INR at 2.3 -Consult cardiology for consideration of heart catheterization Palpitations -We will substitute heparin drip for Coumadin -Patient with history of atrial fibrillation/flutter -I question whether or not the patient is having intermittent arrhythmia -Monitor on telemetry -Continue amiodarone and beta-feroz as scheduled Decompensated systolic heart failure -Patient appears to be mildly decompensated however he remains on room air -We will schedule Lasix 40 mg IV twice daily and closely monitor renal function -EF is 30% at baseline -Patient has ICD/pacer with history of VT -Continue home Coreg -Hold home Lasix Hypertension -Continue home Coreg Hyperlipidemia -Continue home pravastatin -Check lipids Generalized weakness -PT/OT consultation -Concerned that this may be related to coronary disease DVT prophylaxis -Patient fully anticoagulated CODE STATUS -DNR CCA no intubation as per discussion upon admission in the emergency department Charges/Coding Visit Charges Inpatient E&M: 68472 Init Hosp L3
[2021-03-09 16:47] LABS: Cholesterol 109 mg/dL (200); High Density Lipoprotein 36 mg/dL; Triglycerides 76 mg/dL; Troponin-I HS 382 pg/mL (3.0-78.0); Very Low Density Lipoprotein 15 mg/dL (5-40)
[2021-03-09] MEDS: Furosemide 40 MG/4 ML Vial IV (17:21)
[2021-03-09] MEDS: 0.9% Saline Lock 10 ML Syringe IV (17:22)
[2021-03-09] MEDS: Pravastatin 40 MG Tablet PO (19:34)
[2021-03-10] VITALS (14 sets, daily range): BP systolic 90–127; BP diastolic 48–82; PULSE 46–109; RESP 16–18; TEMP 36.5–36.8; O2SAT 92–97
--- NOTE | 2021-03-10 00:03 | EKG12_ITS ---
Test Reason : RHYTHM CHANGE Blood Pressure : / mmHG Vent. Rate : 097 BPM Atrial Rate : 048 BPM P-R Int : 000 ms QRS Dur : 214 ms QT Int : 532 ms P-R-T Axes : 000 126 -57 degrees QTc Int : 675 ms Wide QRS rhythm : Consider Atrial Flutter with IVCD Abnormal ECG Confirmed by ZULY IRIZARRY, SAKINA ([id number]), pictures editor ARY COLE ([id number]) on 03/13/2021 11:34:56 AM Referred By: DR GIPSON Confirmed By:SAKINA CARUSO MD
--- NOTE | 2021-03-10 00:20 | NURSING ---
Pt hrt 100s . No pacer spikes. St with wide qrs. Pt denies any complaints. Vitals done. ekg ordered.dr brady aware
[2021-03-10 00:26] LABS: Partial Thromboplast Time 87.5 Seconds (24.1-36.2)
[2021-03-10 06:40] LABS: Absolute Lymphocyte Count 0.77 X10^3/uL (0.83-4.51); Absolute Neutrophil Count 4.2 X10^3/uL (2.0-7.7); Basophil# 0.06 X10^3/uL; Eosinophil# 0.44 X10^3/uL; Eosinophils% 7.1 % (0-5); Hematocrit 29.4 % (40-54); Hemoglobin 8.8 g/dL (13.0-16.5); Lymphocyte # 0.77 X10^3/ul (0.83-4.51); Lymphocyte % 12.3 % (19-41); Mean Corp Hgb Conc 29.9 g/dL (32-36); Mean Corpuscular Hgb 23.6 pg (27.0-32.0); Mean Corpuscular Volume 78.8 fL (80-94); Mean Platelet Vol. 9.6 fl (6.2-12.0); Monocyte# 0.77 X10^3/uL; Monocyte% 12.3 % (0-10); NRBC Flagged by Analyzer 0 % (0-5); Neutrophil # 4.16 X10^3/uL (2.7-7.7); Neutrophil % 66.7 % (47-70); Platelet Count 308 K/mm3 (150-450); RBC Distribution Width CV 16.5 % (11.6-14.6); Red Blood Count 3.73 M/mm3 (4.6-6.2); White Blood Count 6.2 K/mm3 (4.4-11.0)
[2021-03-10 06:54] LABS: Partial Thromboplast Time 73.7 Seconds (24.1-36.2)
--- NOTE | 2021-03-10 07:05 | PCS.PANDOC ---
PANDEMIC DOCUMENTATION INITIATED: Date: 10/10/2020 Time: 190
[2021-03-10 07:22] LABS: ALB/GLOB Ratio 0.8 RATIO (0.9-2.4); AST(SGOT) 23 U/L (15-37); Alanine Aminotransfer ALT/SGPT 40 U/L (16-61); Albumin, Serum 2.7 g/dL (3.2-5.0); Alkaline Phosphatase 148 U/L (45-117); Anion Gap 5 (5-15); BUN 32 mg/dL (7-18); BUN/Creat Ratio 26.7 RATIO (10-20); Calcium,Total 8.3 mg/dL (8.5-10.1); Chloride 105 mmol/L (98-107); EST Glomerular Filtration Rate 63 mL/min (>60); Est Glom Filt Rate - Afr Amer 76 mL/min (>60); Estimated Creatinine Clearance 39.17 ml/min; Globulin 3.6 g/dL (2.2-4.2); Glucose 94 mg/dL (74-106); Phosphorus 2.8 mg/dL (2.5-4.9); Potassium 3.8 mmol/L (3.5-5.1); Protein, Total 6.3 g/dL (6.4-8.2); Sodium Level 138 mmol/L (136-145); Thyroid Stim Hormone (TSH) 1.06 uIU/mL (0.358-3.74)
[2021-03-10] MEDS: Carvedilol 6.25 MG Tablet PO (07:34)
[2021-03-10] MEDS: Furosemide 40 MG/4 ML Vial IV (07:34)
[2021-03-10] MEDS: Potassium Chloride Oral Tablet 20 MEQ PO (07:35)
[2021-03-10] MEDS: Amiodarone 200 MG Tablet PO (07:35)
[2021-03-10] MEDS: Aspirin E.C. 81 MG Tablet PO (07:35)
[2021-03-10] MEDS: 0.9% Saline Lock 10 ML Syringe IV (07:36)
[2021-03-10 08:42] LABS: International Normalized Ratio 2.5; Prothrombin Time (Protime)PT. 26.4 SECONDS (11.7-14.9)
--- NOTE | 2021-03-10 08:53 | PCM.CONS.C ---
Assessment & Plan Assessment/Plan (1) Abnormal cardiac enzyme level: PLAN: The patient has been reported as having abnormal high-sensitivity troponin I levels. It appears he has had a somewhat chronic elevation of these levels. In the past there has been consideration that these levels were related to the patient's underlying recurrent atrial dysrhythmia superimposed upon his non-CAD related cardiomyopathy and acute on chronic episodes of systolic mediated CHF. There has been a question raised as to whether or not the patient could have progressed and developed underlying CAD leading to his symptoms and objective findings with his shortness of breath and fatigue being an angina pectoris equivalent. At the present time the patient is being monitored. He is continuing medical therapy. Consideration has been given to repeat diagnostic cardiac catheterization to reassess his coronary anatomy. This procedure and risks has been discussed with the patient. He is agreeable to this approach. (2) CHF (congestive heart failure): PLAN: The patient does appear to have findings compatible with acute on chronic systolic mediated CHF. This may be brought out by his recurrent atrial dysrhythmias. At the moment he is being monitored. He is continuing medical therapy with IV diuresis. He states that he does feel somewhat improved. He will continue medical therapy as deemed appropriate. (3) Cardiomyopathy: QUALIFIERS: Cardiomyopathy type: unspecified Qualified Code(s): I42.9 - Cardiomyopathy, unspecified PLAN: He has been reported in the past as having a non-CAD related cardiomyopathy. He has undergone previous noninvasive and invasive studies as noted above. He will continue his medical therapy and his evaluation as deemed appropriate. (4) History of mechanical aortic valve replacement: PLAN: The patient should continue AHA antibiotic prophylaxis. He will need to continue anticoagulant therapy as well. (5) History of mitral valve replacement with mechanical valve: PLAN: Again the patient does need to continue AHA antibiotic prophylaxis. He will need to continue anticoagulant therapy with warfarin/Coumadin. (6) Atrial flutter: PLAN: He has had a history of atrial flutter which is required synchronized biphasic DC cardioversion. He has been on medical therapy in an attempt to assist with controlling his atrial dysrhythmias. He has been asked in the past to reestablish care with [facility] electrophysiology for consideration for EPS/RFA of his atrial dysrhythmia or potentially his AV node to eliminate his tachycardic events and assist with his overall clinical status. Thus far he states he has not made contact with [facility] electrophysiology. Addt'l Comments Overall, at the present time, the patient will continue to be monitored. He will continue medical therapy. His ICD can be reinterrogated as needed to assist with evaluation and care of his underlying cardiac dysrhythmias. He was agreeable to proceeding with further evaluation with diagnostic cardiac catheterization which can be performed as his clinical state and anticoagulation state is deemed appropriate. Also, he should make contact with [facility] electrophysiology for consideration of further evaluation and care of his atrial dysrhythmias as noted above with EPS/RFA or potentially AV node ablation as he does have an underlying pacemaker/ICD in place. He was also evaluated for the possibility of COVID-19 which based upon his antigen test was reported as negative. This note was generated using a voice recognition system and there may be incorrect words, spelling or punctuation that were not noted when reviewing the office note prior to saving. HPI Consult Data Date of Consult: 03/10/21 HPI Narrative HPI Narrative: PETER ROMERO, is a 75 year old [place] gentleman who presents for cardiovascular consultation based upon concerns of shortness of breath and fatigue superimposed upon a history of atrial flutter, s/p mechanical AVR, s/p mechanical MVR, non CAD cardiomyopathy, s/p ICD placement, and chronic renal insufficiency. The patient states that this past Saturday he sensed her heart rate going fast and slow. He states when it goes fast he becomes more short of breath and fatigued. Yesterday, he stated he felt as if he needed to come to the hospital based upon his symptoms. He denies ongoing chest discomfort. He states he does get more short of breath and dyspneic especially when his heart rate elevates. He has denied any ongoing episodes of near syncope or syncope. He states his ICD has not discharged. He has not had ongoing peripheral pitting edema. He was evaluated in the emergency department. He did have elevated troponin I levels which have been somewhat chronically elevated in the past. His BNP level was elevated. His INR was reported at 2.3. He had an ECG that demonstrated a wide-complex rhythm. Upon review there is a question as to whether or not he has been going in and out of his atrial flutter with his wide-complex rhythm as he has done in the past. His chest x-ray suggested findings potentially compatible with bilateral infiltrates versus CHF/pulmonary edema. This was reproduced on a chest CT scan. He underwent a COVID-19 antigen test which was reported as negative. He was placed in the PCU for further evaluation and care. He was placed on IV furosemide therapy. He has had increased urinary output. He believes his breathing is somewhat better today. He has been lying supine in bed and appearing comfortable with his breathing without the need of O2 support. [facility] Medical History (Updated 03/10/21 @ 09:[address] 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 Microcytic anemia Home Medications warfarin 2 mg PO SUTUTHSA 01/27/20 [History Last Taken Unknown] potassium chloride 20 meq PO DAILY 07/25/20 [History Last Taken 03/09/21] warfarin 1 mg PO MOWEFR 07/25/20 [History Last Taken Unknown] pravastatin 40 mg tablet 40 mg PO DAILY 11/25/20 [History Last Taken Unknown] carvedilol 6.25 mg tablet 6.25 mg PO BID #1 tab 01/04/21 [Rx Last Taken 03/09/21] furosemide 40 mg tablet 20 mg PO .COMPLEX tab 01/04/21 [History Last Taken 03/08/21] amiodarone 200 mg tablet 200 mg PO BID tab 03/03/21 [History Last Taken 03/09/21] amoxicillin-pot clavulanate 875 mg PO Q12H #20 tablet 03/09/21 [Rx Last Taken Unknown] Allergy/AdvReac Type Severity Reaction Status Date / Time No Known Allergies Allergy Verified 03/09/21 07:38 Family History Father CVA (cerebral vascular accident) Surgical History History of mechanical aortic valve replacement (~2003) History of mitral valve replacement with mechanical valve (~2003) S/P AVR (aortic valve replacement) S/P MVR (mitral valve replacement) Social History Smoking Status: Never smoker alcohol intake: current details: occasional substance use type: does not use ROS Constitutional Constitutional: Reports fatigue Eyes Eyes: Reports as per HPI ENT HEENT: Reports as per HPI Cardiovascular Cardiovascular: Reports dyspnea, fatigue and palpitations Respiratory/Chest Respiratory/Chest: Reports dyspnea Gastrointestinal Gastrointestinal: Reports as per HPI Genitourinary Genitourinary: Reports as per HPI Musculoskeletal Musculoskeletal: Reports as per HPI Neurologic Neurologic: Reports as per HPI Physical Exam Const alert, oriented x3 and no apparent distress Orientation / Consciousness: awake HEENT normocephalic, head/scalp atraumatic and hearing grossly normal bilaterally Eyes PERRL, EOMs intact bilaterally and conjunctivae normal Neck full ROM, supple and no JVD Resp Auscultation: rales bilateral base Cardio regular rate and regular rhythm Heart Sounds: prosthetic sounds crisp prosthetic S1 and crisp prosthetic S2 GI normal to inspection, nondistended, normoactive bowel sounds Extremity no pedal edema Skin no rashes or lesions noted Neuro oriented x3, moves all extremities, no focal motor deficits and no sensory deficits noted Psych mental status grossly normal Risk Stratification Risk Stratification Applicable: Yes Age >/= 65: Yes >/= 3 CAD Risk Factors (HTN, HLD, DM, family hx of CAD, or current smoker): No Aspirin Use in the Past 7 Days: No Severe Angina (>/= episodes in 24 hours): No EKG ST Changes >/= 0.5mm: No Positive Cardiac Marker: Yes FRANCINE Risk Stratification Score: 2 FRANCINE % Risk: 8% Risk Procedure Criteria Type of Procedure Procedure Type: Elective Elective Risks - COVID COVID Risk Discussion: The surgeon/proceduralist and patient have discussed in detail the risk of exposure to and/or potential harm posed by the COVID-19 virus with having a surgery/procedure at this time versus the risk of delaying the surgery/procedure. It is not possible to know either the risk of delaying the surgery or procedure or chance of getting an infection with perfect accuracy, but a joint decision was made between the patient and the surgeon/proceduralist to proceed at this time with the scheduled surgery/procedure as indicated on the consent form. Objective Data Vital Signs: Vital Signs Temp Pulse Resp BP Pulse Ox 97.8 F 102 H 17 127/82 H 93 03/10/21 05:45 03/10/21 07:00 03/10/21 05:45 03/10/21 05:45 03/10/21 08:25 Oxygen Delivery Method Room Air Weight: 114 lb 12.8 oz Body Mass Index (BMI) 20.9 Intake & Output: Intake and Output for Last 24 Hours 03/08/21 03/09/21 03/10/21 23:59 23:59 23:59 Intake Total 1385 / 1385 56.93 / 56.93 Output Total 1450 / 1450 350 / 350 Balance -65 / -65 -293.07 / -293.07 Lab / Micro Data Result Diagrams: 03/10/21 06:31 03/10/21 06:31 Labs: Laboratory Results - last 24 hr 03/09/21 07:55: B-Natriuretic Peptide 1582.0 H 03/09/21 10:14: Troponin I High Sens 392 H* 03/09/21 15:25: Troponin I High Sens 382 H*, Triglycerides 76, Cholesterol 109, LDL Cholesterol 58, VLDL Cholesterol 15, HDL Cholesterol 36 L 03/10/21 00:03: APTT 87.5 H 03/10/21 06:31: WBC 6.2, RBC 3.73 L, Hgb 8.8 L, Hct 29.4 L, MCV 78.8 L, MCH 23.6 L, MCHC 29.9 L, RDW Std Deviation 47.0 H, RDW Coeff of Patricia 16.5 H, Plt Count 308, MPV 9.6, Immature Gran % (Auto) 0.600, Neut % (Auto) 66.7, Lymph % (Auto) 12.3 L, [place] % (Auto) 12.3 H, Eos % (Auto) 7.1 H, Baso % (Auto) 1.0, Absolute Neuts (auto) 4.2, Absolute Lymphs (auto) 0.77 L, Nucleated RBC % 0 03/10/21 06:31: Sodium 138, Potassium 3.8, Chloride 105, Carbon Dioxide 28.0, Anion Gap 5, BUN 32 H, Creatinine 1.20, Estim Creat Clear Calc 39.17, Est GFR (MDRD) Af Amer 76, Est GFR (MDRD) Non-Af 63, BUN/Creatinine Ratio 26.7 H, Glucose 94, Calcium 8.3 L, Phosphorus 2.8, Magnesium 2.0, Total Bilirubin 0.90, AST 23, ALT 40, Alkaline Phosphatase 148 H, Total Protein 6.3 L, Albumin 2.7 L, Globulin 3.6, Albumin/Globulin Ratio 0.8 L, TSH 1.06 03/10/21 06:31: APTT 73.7 H 03/10/21 06:31: PT 26.4 H, INR 2.5 Micro: Microbiology 03/09/21 08:06 Nasal Secretion SARS-CoV-2 Antigen (Rapid) - Final Cardiology Labs/Tests 03/09/21 07:55: B-Natriuretic Peptide 1582.0 H 03/09/21 15:25: Triglycerides 76, Cholesterol 109, LDL Cholesterol 58, VLDL Cholesterol 15, HDL Cholesterol 36 L 03/10/21 00:03: APTT 87.5 H 03/10/21 06:31: WBC 6.2, RBC 3.73 L, Hgb 8.8 L, Hct 29.4 L, MCV 78.8 L, MCH 23.6 L, MCHC 29.9 L, Plt Count 308, MPV 9.6, Immature Gran % (Auto) 0.600, Neut % (Auto) 66.7, Lymph % (Auto) 12.3 L, [place] % (Auto) 12.3 H, Eos % (Auto) 7.1 H, Baso % (Auto) 1.0, Absolute Neuts (auto) 4.2, Nucleated RBC % 0 03/10/21 06:31: Sodium 138, Potassium 3.8, Chloride 105, Carbon Dioxide 28.0, Anion Gap 5, BUN 32 H, Creatinine 1.20, Est GFR (MDRD) Af Amer 76, Est GFR (MDRD) Non-Af 63, BUN/Creatinine Ratio 26.7 H, Glucose 94, Calcium 8.3 L, Phosphorus 2.8, Magnesium 2.0, Total Bilirubin 0.90 03/10/21 06:31: APTT 73.7 H 03/10/21 06:31: PT 26.4 H, INR 2.5 Rhythm: Episodes appearing compatible with sinus rhythm, electronic ventricular paced rhythm, and wide-complex tachycardia (question of paroxysmal atrial flutter) EKG: As noted above Echocardiogram from 07/25/2020: Interpretation Summary Limited views were obtained. Mildly dilated left ventricle. Severe global left ventricular systolic dysfunction. The estimated ejection fraction is 20 %. The left atrium is moderately enlarged. Stable appearing mechanical mitral valve apparatus. Stable appearing mechanical aortic valve apparatus. Small mobile echodensity in the submitral valvular apparatus compatible with redundant / flail chordae tendonae. Comment: Compared with the previous transthoracic echocardiogram from 01-12-2020: There are similar type changes. Stress test from 01/13/2020: Procedure: Pharmacologic stress nuclear imaging study Indications: Atrial fibrillation/flutter; status post MVR; status post AVR; cardiomyopathy; ICD Consent: Per the patient Procedure: The patient underwent pharmacologic (Regadenoson) evaluation with a peak heart rate of 120 beats per minute (82%predicted maximal heart rate) and a peak blood pressure of 134/91 mmHg. The baseline ECG demonstrated atrial flutter with left axis deviation with left bundle branch block pattern. The peak pharmacologic ECG demonstrated no obvious ECG changes. There was an occasional PVC during infusion and recovery. There was no complaint of chest discomfort during pharmacologic infusion or recovery. The examination was discontinued secondary to completion of protocol. Impression: 1. Pharmacologic (Regadenoson) evaluation 2. Peak pharmacologic ECG with no obvious ECG changes. 3. There was an occasional PVC during infusion and recovery. 4. Nuclear images pending Myocardial perfusion imaging study: Technique: The patient was injected with 11.8 millicuries of technetium 99m Cardiolite and subsequently rest SPECT Cardiolite nuclear imaging was obtained in the horizontal long, vertical long, and short axis views. The patient underwent pharmacologic (Regadenoson) evaluation with a peak heart rate of 120 beats per minute (82% percent predicted maximal heart rate) and a peak blood pressure of 134/91 mmHg. The patient was injected with 32.7 millicuries of technetium 99m Cardiolite and subsequently stress SPECT Cardiolite nuclear imaging was obtained in the horizontal long, vertical long, and short axis views. A gated Cardiolite study at peak stress was obtained. Interpretation: Rest and stress SPECT Cardiolite nuclear imaging status post realignment, normalization, and attenuation correction demonstrate the appearance of diminished absence of myocardial perfusion/tracer uptake in portions of the basal to mid anteroseptal segments without significant change between rest and stress. There is diminished end systolic thickening and brightening. The gated Cardiolite study demonstrates diminished myocardial thickening and inward wall motion. The reported LVEF is 20%. Impression: 1. Rest and stress SPECT current nuclear imaging demonstrate myocardial perfusion changes potentially compatible with the patient's underlying left bundle branch block phenomena, however, an area of previous myocardial injury/infarction cannot necessarily be excluded, with no myocardial perfusion changes considered diagnostic for associated stress-induced myocardial ischemia. 2. The gated Cardiolite study reports an LVEF of 20%. Cardiac Cath: According to outside medical records the patient underwent a diagnostic cardiac catheterization at [facility] on 04-16-2003 at which time there was a report of no coronary artery disease. CT Surgery: According to outside medical records the patient underwent open heart surgery at [facility] at which time the patient received an aortic valve replacement with a number 23 mm On-X valve and a mitral valve replacement with a number 31 mm On-X valve ICD: [employer]: Model: Evera S VR [id number]: Serial Number: [id number]: Implant Date: 11-15-2014: Single Chamber ICD: Lower Rate Limite: 40 ppm Radiography Diagnostic Testing: Radiology Impression Chest CTA 03/09/21 14:04 IMPRESSION: No evidence of a pulmonary embolism. Patchy bilateral alveolar infiltrates involving both lungs worse in the right upper lobe. Small bilateral pleural effusions right greater than left. Electronically Signed: Jayesh Gross MD at 14:43 EST , Service support ,
[2021-03-10 10:35] LABS: International Normalized Ratio 2.2
[2021-03-10 10:36] LABS: Partial Thromboplast Time 40.4 Seconds (24.1-36.2)
--- NOTE | 2021-03-10 12:00 | NURSING ---
Called report to Xin SOOD in cath laboratory technician
--- NOTE | 2021-03-10 13:50 | CL.D_ITS ---
Patient Name: PETER ROMERO Study Date: 03/10/2021 Performing: Adelfo Catherine MD Ht: 62 inches 157 cm : 1945 Wt: 114.8 lbs 52 kg Age: 75 Gender: male BSA: 1.51 PROCEDURE(S) PERFORMED [id number])C/COR CLINICAL PROFILE AND INDICATIONS Indications: Cardiac Arrythmia, Cardiomyopathy Heart Failure: NYHA Class: 3, Newly Diagnosed: No, Heart Failure Type: Systolic Stress/Imaging Stress/Image Study Performed: No Angina Classification Anginal Classification w/in 2 Weeks: Anginal Equivalent Dyspnea CAD Presentations: Other: cardiac arrhythmia; cardiomyopathy; CHF; abnormal cardiac enzymes CONCLUSIONS Single vessel CAD of the High Septal Paper Baler Stable appearing mechanical aortic valve prosthesis Stable appearing mechanical mitral valve prosthesis RECOMMENDATIONS Risk factor modification Medical therapy EP consultation for cardiac dysrhythmia DESCRIPTION OF PROCEDURE The patient arrived to the procedure lab. The risks and benefits of the procedure as well as a full d escription of our services here and current unavailability of surgical backup were fully explained to the patient and/or their significant other prior to the catheterization. The Timeout was completed, verifying the correct patient and procedure. The patient's procedural site was prepped and draped in the usual fashion. Local anesthetic was given subcutaneously to right radial region with Lidocaine 2% . Using a modified Seldinger technique, arterial access was obtained via the right radial artery, a 6 Fr sheath was inserted. Left Coronary Artery selective angiography was performed in multiple views u sing a 5 Fr. 4.0 [place] catheter. Right Coronary Artery selective angiography was then performed in mu ltiple views using a 5 Fr. JL3.5 catheter.The arterial sheath was pulled and a TR Band was applied fo r hemostasis CORONARY ANGIOGRAPHY DOMINANCE: Left Dominant LEFT HEART ASSESSMENT Left Ventricular Ejection Fraction: Not assessed LEFT MAIN: Angiographically normal LEFT ANTERIOR DESCENDING ARTERY: Angiographically normal SEPTAL: High Septal Paper Baler: Occluded CIRCUMFLEX ARTERY: Angiographically normal RIGHT CORONARY ARTERY: Angiographically normal VALVE FINDINGS: Stable appearing mechanical aortic valve prosthesis Stable appearing mechanical mitral valve prosthesis COMPLICATIONS No Complications PROCEDURE MEDICATIONS Versed 1 mg IV Fentanyl 50 mcg IV Oxygen: 2 L/min via nasal cannula Heparin given IA 03/10/2021 12:26:43 Verapamil 2.5mg, 3000 units of Heparin given IA 03/10/2021 12:26:43 SUMMARY OF HEMODYNAMIC DATA Time AIR REST ECG 12:04:56 AO 73/55 (65) SA 12:31:21 AO 80/46 (62) 12:33:28 Signed By Adelfo Catherine MD On 03/10/2021 13:49:45 Adelfo Catherine MD
--- NOTE | 2021-03-10 15:10 | DS.PCM_ITS ---
Providers Date of Admission: 03/09/21 Date of Discharge: 03/11/21 Primary Care Physician: Dr. Lawrence Cross MD Consultations 03/09/21 15:16 Consult: Cardiology Routine Consulting Provider: Kira Freire Reason for Consult: JACKSON/Fatigue--> ? anginal equivalent EMERGENT Consult: No MD Notified: Yes Date Notified: 03/09/21 Time Notified: 15:17 Method of Notification: Verbal Method of Consult:: In-Person Reason For Visit: JACKSON/FATIGUE Diagnosis Discharge Diagnosis (1) CHF (congestive heart failure): Status: Acute Code(s): I50.9 - Heart failure, unspecified Plan: 1. Acute on chronic systolic congestive heart failure #2 atrial flutter with poorly controlled rate #3 elevated cardiac enzymes-etiology unclear, not a non-STEMI #4 nonischemic cardiomyopathy #5 hyperlipidemia-continue pravastatin #6 mechanical aortic valve replacement #7 Chronic anemia #8 mechanical mitral valve replacement #9 chronic Coumadin usage due to mechanical heart valve Medications at Discharge Home Medications warfarin 2 mg PO SUTUTHSA 01/27/20 potassium chloride 20 meq PO DAILY 07/25/20 warfarin 1 mg PO MOWEFR 07/25/20 pravastatin 40 mg tablet 40 mg PO DAILY 11/25/20 carvedilol 6.25 mg tablet 6.25 mg PO BID #1 tab 01/04/21 furosemide 40 mg tablet 20 mg PO .COMPLEX tab 01/04/21 amiodarone 200 mg tablet 200 mg PO BID tab 03/03/21 amoxicillin-pot clavulanate 875 mg PO Q12H #20 tablet 03/09/21 Hospital Course Operations None Procedures Cardiac catheterization Summary of Care Provided Minutes Spent on Discharge: 31 Hospital Course: 75-year-old white male was seen in the emergency room at [facility] with a chief complaint of palpitations. Patient has a history of cardiomyopathy, work-up in the ER included an EKG which showed a sinus tachycardia with a rate of 110, hemoglobin was 9.9, INR was therapeutic at 2.3. Comprehensive metabolic panel was essentially within normal limits, high- sensitivity troponin was slightly elevated at 390. 2-hour repeat troponin was unchanged at 392. Portable chest x-ray was obtained, there appeared to be a possible right lower lobe infiltrate, patient's beta natruretic peptide however was highly elevated. Patient ambulated in the emergency room but became weak and lightheaded, he was admitted to PCU and it was felt by the admitting natalie fernandez that the patient had an element of CHF and he was placed on IV Lasix and seen in consultation by cardiology. 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 It was felt that the patient would be better served to be transferred to a tertiary facility that had an EP physician, cardiology made contact with an EP physician at [facility] which the patient had seen before and this physician agreed to take the patient in transfer to [facility] for AV melo ablation. On 03/10/2021, patient was seen and examined: On examination he appeared in good health and spirits. Vital signs as documented. Skin warm and dry and without overt rashes. Neck without JVD, neck was supple, trachea midline, thyroid was normal. Lungs clear bilaterally, normal air movement was noted. Heart exam no table for regular rhythm, normal sounds and absence of murmurs, there is noted to be mechanical valve sound over the left and right sternal border as well as the apex, no rubs or gallops were noted. Abdomen unremarkable and without evidence of organomegaly, masses, or abdominal aortic enlargement. Bowel sounds are present, abdomen is not distended. Extremities nonedematous, no cyanosis was noted, no clubbing was noted. Neuro: Cranial nerves II through XII are grossly intact, no focal motor deficits were noted, sensation to light touch and pinprick intact, motor exam 5/5 throughout. Psych: Patient is alert and oriented x3, he does not appear anxious or depressed, he does not appear agitat ed. On 03/11/2021, patient was ultimately transferred to [facility] for further care. Weight / BMI Weight Weight: 52.072 kg Body Mass Index (BMI) 20.9 ABG / Lab / Microbiology Data Result Diagrams: 03/10/21 06:31 03/10/21 06:31 Microbiology: Microbiology 03/09/21 08:06 Nasal Secretion SARS-CoV-2 Antigen (Rapid) - Final Meaningful Use Info Meaningful Use Diagnoses (Choose all that apply): None applicable Discharge Plan Admission Admit Date/Time: 03/09/21 14:01 Attending Provider: Lawrence Grajdea Primary Care Provider: Lawrence Cross Consulting Providers: Kira Freire Discharge Orders/Prescriptions Prescriptions: New amoxicillin-pot clavulanate [amoxicillin-pot clavulanate] 875 MG tablet 875 mg PO Q12H Qty: 20 RF: 0 No Action furosemide 40 mg tablet 20 mg PO .COMPLEX RF: 0 carvedilol 6.25 mg tablet 6.25 mg PO BID Qty: 1 RF: 3 pravastatin 40 mg tablet 40 mg PO DAILY RF: 0 amiodarone 200 mg tablet 200 mg PO BID RF: 0 warfarin 2 MG tablet 2 mg PO SUTUTHSA RF: 0 warfarin 1 mg Tablet 1 mg PO MOWEFR RF: 0 potassium chloride 20 mEq Tablet Extended Release 20 meq PO DAILY RF: 0 Referrals / Follow Up: Lawrence Cross MD [Primary Care Provider] - 3-5 Days Disposition Disposition (needs filled in before D/C Order can be placed): Acute Care Hospital Charges/Coding Visit Charges Inpatient E&M: 54111 Disch Hosp
--- NOTE | 2021-03-10 15:29 | PCM.PN.HOSP ---
Subjective Subjective Patient was seen and examined today, he had a cardiac catheterization today which showed no occlusive coronary artery disease. Cardiology recommends that the patient have an AV node ablation, cardiology is contacted an EP physician at [facility] who has agreed to accept the patient. Bed availability is not known at this time however. Objective Data Objective Data Vital Signs: Vital Signs Temp Pulse Resp BP Pulse Ox 97.9 F 61 16 90/51 L 96 03/10/21 11:45 03/10/21 15:00 03/10/21 15:00 03/10/21 15:00 03/10/21 15:00 Oxygen Delivery Method Room Air Weight: 52.072 kg Body Mass Index (BMI) 20.9 Intake & Output: Intake and Output for Last 24 Hours 03/08/21 03/09/21 03/10/21 23:59 23:59 23:59 Intake Total 1385 / 1385 176.66 / 176.66 Output Total 1450 / 1450 1750 / 1750 Balance -65 / -65 -1573.34 / -1573.34 Lab / Micro Data Result Diagrams: 03/10/21 06:31 03/10/21 06:31 Labs: Laboratory Results - last 24 hr 03/09/21 15:25: Troponin I High Sens 382 H*, Triglycerides 76, Cholesterol 109, LDL Cholesterol 58, VLDL Cholesterol 15, HDL Cholesterol 36 L 03/10/21 00:03: APTT 87.5 H 03/10/21 06:31: WBC 6.2, RBC 3.73 L, Hgb 8.8 L, Hct 29.4 L, MCV 78.8 L, MCH 23.6 L, MCHC 29.9 L, RDW Std Deviation 47.0 H, RDW Coeff of Patricia 16.5 H, Plt Count 308, MPV 9.6, Immature Gran % (Auto) 0.600, Neut % (Auto) 66.7, Lymph % (Auto) 12.3 L, [place] % (Auto) 12.3 H, Eos % (Auto) 7.1 H, Baso % (Auto) 1.0, Absolute Neuts (auto) 4.2, Absolute Lymphs (auto) 0.77 L, Nucleated RBC % 0 03/10/21 06:31: Sodium 138, Potassium 3.8, Chloride 105, Carbon Dioxide 28.0, Anion Gap 5, BUN 32 H, Creatinine 1.20, Estim Creat Clear Calc 39.17, Est GFR (MDRD) Af Amer 76, Est GFR (MDRD) Non-Af 63, BUN/Creatinine Ratio 26.7 H, Glucose 94, Calcium 8.3 L, Phosphorus 2.8, Magnesium 2.0, Total Bilirubin 0.90, AST 23, ALT 40, Alkaline Phosphatase 148 H, Total Protein 6.3 L, Albumin 2.7 L, Globulin 3.6, Albumin/Globulin Ratio 0.8 L, TSH 1.06 03/10/21 06:31: APTT 73.7 H 03/10/21 06:31: PT 26.4 H, INR 2.5 03/10/21 10:17: PT 24.0 H, INR 2.2, APTT 40.4 H Micro: Microbiology 03/09/21 08:06 Nasal Secretion SARS-CoV-2 Antigen (Rapid) - Final Physical Exam Const alert, oriented x3, no apparent distress and healthy appearing General Appearance: cooperative, well kempt and well developed Orientation / Consciousness: awake, oriented to person, oriented to place and oriented to time HEENT normocephalic and moist oral mucous membranes Eyes PERRL, EOMs intact bilaterally and conjunctivae normal Neck nuchal rigidity, supple, no JVD, thyroid normal and no carotid bruits General: trachea midline Resp normal respiratory effort and clear to auscultation bilaterally Auscultation: Negative for rales, rhonchi or wheezes Cardio no murmurs, no rub and no gallops Cardio Narrative: Heart rate and rhythm is paced Mechanical heart valve sound noted over precordium GI normal to inspection, nondistended, normoactive bowel sounds, soft to palpation, non-tender and non-distended Extremity normal to inspection and no clubbing, cyanosis or edema Skin no rashes or lesions noted and skin turgor normal General Skin Exam: no breakdown Neuro oriented x3, CN's II-XII intact bilaterally, no focal motor deficits and no sensory deficits noted Sensorium / Orientation: awake and alert Speech: speech normal Psych thought process normal and affect normal Assessment & Plan Assessment/Plan (1) CHF (congestive heart failure): PLAN: 1. Acute on chronic systolic congestive heart failure-patient is currently on IV diuresis #2 atrial flutter with poorly controlled rate-patient is currently paced at this time, arrangements have been made to transfer the patient to [place] to be seen by an EP doctor for AV melo ablation. #3 elevated cardiac enzymes-etiology unclear, not a non-STEMI #4 nonischemic cardiomyopathy-this is being treated medically #5 hyperlipidemia-continue pravastatin #6 mechanical aortic valve replacement-patient is to remain on Coumadin #7 Chronic anemia-type unknown-patient does not need blood transfusion at this time #8 mechanical mitral valve replacement-patient is to remain on Coumadin Charges/Coding Visit Charges Inpatient E&M: 29600 Subs Hosp L2
--- NOTE | 2021-03-10 15:48 | CASEMGMT ---
[facility], the following are in-network tertiary facilities: [facility], [place], [facility], [facility], [facility], [facility], and . John SOOD CM
[2021-03-10] MEDS: Pravastatin 40 MG Tablet PO (21:43)
[2021-03-11 00:06] VITALS: BP 117/64; PULSE 60; RESP 18; TEMP 36.6; O2SAT 96
--- NOTE | 2021-03-11 02:07 | NURSING ---
Transport here to take patient to [place], patient stable with no compliants. Patient did call to tell her about the transfer.
== END 2021-03-11 01:50 | disposition short-term general hospital (02) | DRG 286 ==
LOC: ED 11:40 → PCU 14:15
PROVIDERS: Internal Medicine Cardiovascular Disease; Admitting Provider Internal Medicine; Emergency Provider Emergency Medicine; PCP Family Medicine; Visit Provider Internal Medicine
DX: I11.0 Hypertensive heart disease with heart failure (principal); I50.23 Acute on chronic systolic (congestive) heart failure; I48.92 Unspecified atrial flutter; I45.2 Bifascicular block; I42.9 Cardiomyopathy, unspecified; E78.5 Hyperlipidemia, unspecified; D64.9 Anemia, unspecified; I25.10 Atherosclerotic heart disease of native coronary artery without angina pectoris; Z79.01 Long term (current) use of anticoagulants; Z79.82 Long term (current) use of aspirin; R00.2 Palpitations; Z95.810 Presence of automatic (implantable) cardiac defibrillator; Z95.3 Presence of xenogenic heart valve
CPT/HCPCS: 36415; 71045; 71275; 80053; 80061; 83735; 83880; 84100; 84443; 84484; 85025; 85610; 85730; 87426; 93005; 93454; 97161; 97166; 97802; 99152; 99153; 99251; 99285; J7040; Q9967; A4216; C1769; C1894; G0463; J0696; J1940